=== PATIENT | female | born 1995 | race Caucasian/White ===

== ENCOUNTER 2017-12-15 13:05 | Emergency (ER) | payer OTHER ==
[2017-12-15 13:27] VITALS: TEMP 98.3
[2017-12-15] MEDS ORDERED: ONDANSETRON 4 MG/2 ML VIAL IVP STA (13:53)
[2017-12-15] MEDS ORDERED: SODIUM CHLORIDE 0.9% 1,000 ML IV STA ×2 (13:53)
[2017-12-15] MEDS ORDERED: KETOROLAC 30 MG/ML 1 ML VIAL IVP STA (13:53)
--- NOTE | 2017-12-15 14:20 | ED ---
Back Pain HPI <Lito Molina - Last Filed: 12/15/17 15:54> - General Source: patient, RN notes reviewed, old records reviewed Limitations: no limitations <Zaida Santamaria - Last Filed: 12/15/17 19:53> - General Chief Complaint: Back Pain/Injury Stated Complaint: back pain Time Seen by Provider: 12/15/17 13:35 - History of Present Illness Initial Comments: Patient is a 22-year-old female who presents the emergency department today with intermittent fevers complains of left-sided back pain between her shoulder blades. Worse with taking a deep breath. She was evaluated yesterday at [facility] had extensive workup. She was found to have hematuria reportedly but states she did not have any antibiotics. She states she's had this been having fevers for the past 2 days. At this time she denies any chance of . She states that her last menstrual period was the 16th of this month. Patient relates that she has had no nausea or vomiting. Denies any coughing. (Zaida Santamaria) - Related Data Previous Rx's Medication Instructions Recorded Acetaminophen-Codeine 300-30mg 1 each PO Q4H PRN #20 tablet 08/30/15 [Tylenol w/codeine #3] Naproxen [Naprosyn] 500 mg PO Q12HR #24 tab 08/30/15 Penicillin V Potassium [Pen Vee K] 500 mg PO QID #40 tab 08/30/15 Amoxic-Pot Clav 875-125Mg 1 tab PO Q12HR #20 tablet 12/15/17 [Augmentin 875-125] Clindamycin [Cleocin] 450 mg PO TID 7 Days capsule 12/15/17 Allergies Allergy/AdvReac Type Severity Reaction Status Date / Time No Known Allergies Allergy Verified 08/30/15 21:33 Review of Systems ROS Other: All systems not noted in ROS Statement are negative. <Lito Molina - Last Filed: 12/15/17 15:54> ROS Other: All systems not noted in ROS Statement are negative. <Zaida Santamaria - Last Filed: 12/15/17 19:53> ROS Statement: Those systems with pertinent positive or pertinent negative responses have been documented in the HPI. Past Medical History Past Medical History: No Reported History Additional Past Medical History / Comment(s): Obstetric history: This is her first and she has had care with Dr Garnica since 8 weeks. A+ , abs neg, Rub Imm, RPR NR, Hep B neg. Normal 1hr GTT, GBS neg. Normal anatomy US. History of Any Multi-Drug Resistant Organisms: None Reported Past Surgical History: Cholecystectomy Past Anesthesia/Blood Transfusion Reactions: No Reported Reaction Past Psychological History: No Psychological Hx Reported Smoking Status: Current every day smoker Past Alcohol Use History: None Reported Past Drug Use History: None Reported - Past Family History Father Family Medical History: No Reported History <Zaida Santamaria - Last Filed: 12/15/17 19:53> General Exam <Lito Molina - Last Filed: 12/15/17 15:54> Limitations: no limitations General appearance: alert, in no apparent distress Head exam: Present: atraumatic, normocephalic, normal inspection Eye exam: Present: normal appearance, PERRL, EOMI. Absent: scleral icterus, conjunctival injection, periorbital swelling ENT exam: Present: normal exam, mucous membranes moist Neck exam: Present: normal inspection. Absent: tenderness, meningismus, lymphadenopathy Respiratory exam: Present: normal lung sounds bilaterally. Absent: respiratory distress, wheezes, rales, rhonchi, stridor Cardiovascular Exam: Present: regular rate, normal rhythm, normal heart sounds. Absent: systolic murmur, diastolic murmur, rubs, gallop, clicks GI/Abdominal exam: Present: soft, tenderness (Left CVA tenderness.), normal bowel sounds. Absent: distended, guarding, rebound, rigid <Zaida Santamaria - Last Filed: 12/15/17 19:53> - General Exam Comments Initial Comments: This is a 22-year-old female. Alert and oriented. (Zaida Santamaria) Course <Lito Molina - Last Filed: 12/15/17 15:54> <Zaida Santamaria - Last Filed: 12/15/17 19:53> Vital Signs 12/15/17 12/15/17 12/15/17 13:22 14:45 14:46 Temperature 98.3 F Pulse Rate 110 H 92 Respiratory 18 16 Rate Blood Pressure 108/71 102/62 O2 Sat by Pulse 99 97 97 Oximetry 12/15/17 12/15/17 12/15/17 14:50 15:00 15:10 Temperature Pulse Rate Respiratory Rate Blood Pressure 102/62 102/62 102/62 O2 Sat by Pulse Oximetry 12/15/17 12/15/17 12/15/17 15:20 15:30 15:40 Temperature Pulse Rate 92 Respiratory 18 Rate Blood Pressure 102/62 102/62 102/62 O2 Sat by Pulse Oximetry 12/15/17 12/15/17 12/15/17 15:50 16:00 16:10 Temperature Pulse Rate Respiratory Rate Blood Pressure 102/62 102/62 97/77 O2 Sat by Pulse 99 Oximetry 12/15/17 17:28 Temperature Pulse Rate 98 Respiratory 18 Rate Blood Pressure 98/72 O2 Sat by Pulse 100 Oximetry - Reevaluation(s) Reevaluation #1: 12/15/17 15:53 Patient reevaluated and resting comfortably in bed. Patient complains of discomfort of the left mid thoracic region. CT report reviewed. Lung sounds are slightly diminished at the bases. Patient updated on report findings and concerns. Patient is advised admission for IV antibiotics and medicine and pulmonary consult. Patient refuses this. Patient does demonstrate medical decision making. Patient is updated specifically on CT findings and concerns for potentially life-threatening disease. (Lito Molina) Medical Decision Making - Lab Data Result diagrams: 12/15/17 14:05 12/15/17 14:05 <Lito Molina - Last Filed: 12/15/17 15:54> - Lab Data Result diagrams: 12/15/17 14:05 12/15/17 14:05 - Radiology Data Radiology results: report reviewed <Zaida Santamaria - Last Filed: 12/15/17 19:53> - Medical Decision Making This Patient is a 22-year-old female who presented to emergency Today with left- sided back pain. Patient reports she was seen at [facility]. I did obtain records from this visit yesterday. She had a white blood cell count of 15,000 at that time and sulci matured. They offered to CT and then she refused. Today Patient had significant CVA tenderness. Urinalysis is positive for red blood cells and white blood cells. Concern for infection. Urine culture obtained. And concerned with the hematuria the possibility of a kidney stone. He proceeded to do a CT abdomen and pelvis without contrast. Patient doesn't appear to be in any acute distress. Her vital signs stable. He is afebrile. She did complain of no cough or congestion. The CT did not show any evidence of pyelonephritis or obstructing renal stones. There was evidence of a left-sided pleural effusion and concern for bronchopneumonia. There is also. Questionable septic emboli. At that point we did complete a chest x-ray. Chest x-ray shows multiple rounded opacities concerning for possibility of septic emboli. Patient was informed of all of these results. I did give the Patient 1 dose of IV Rocephin. Blood cultures were obtained. Patient was informed multiple times that I would like to admit the Patient due to the abnormal CT finding and chest x-ray finding. Patient was adamant that she had to leave to take care of her daughter. We even offered to have the daughter stay in the emergency department with us and Patient continued to refuse. She stated she would likely return for reevaluation tomorrow. Patient has been started on clindamycin and Augmentin at this time for antibiotic coverage due to the concern for septic emboli. I do believe the source is likely from the urine at this time. She understands treatment plan and will comply. She understands she will be signing out AMA. (Zaida Santamaria) - Lab Data Lab Results 12/15/17 12/15/17 12/15/17 Range/Units 14:05 14:05 14:05 WBC 10.4 (3.8-10.6) k/uL RBC 4.25 (3.80-5.40) m/uL Hgb 12.6 (11.4-16.0) gm/dL Hct 38.1 (34.0-46.0) % MCV 89.8 (80.0-100.0) fL MCH 29.7 (25.0-35.0) pg MCHC 33.1 (31.0-37.0) g/dL RDW 12.6 (11.5-15.5) % Plt Count 172 (150-450) k/uL Neutrophils % 81 % Lymphocytes % 11 % Monocytes % 6 % Eosinophils % 1 % Basophils % 0 % Neutrophils # 8.4 H (1.3-7.7) k/uL Lymphocytes # 1.1 (1.0-4.8) k/uL Monocytes # 0.6 (0-1.0) k/uL Eosinophils # 0.1 (0-0.7) k/uL Basophils # 0.0 (0-0.2) k/uL PT (9.0-12.0) sec INR (<1.2) APTT (22.0-30.0) sec Sodium 137 (137-145) mmol/L Potassium 3.6 (3.5-5.1) mmol/L Chloride 102 (98-107) mmol/L Carbon Dioxide 28 (22-30) mmol/L Anion Gap 7 mmol/L BUN 11 (7-17) mg/dL Creatinine 0.46 L (0.52-1.04) mg/dL Est GFR (CKD-EPI)AfAm >90 (>60 ml/min/1.73 sqM) Est GFR (CKD-EPI)NonAf >90 (>60 ml/min/1.73 sqM) Glucose 131 H (74-99) mg/dL Plasma Lactic Acid Denilson 0.8 (0.7-2.0) mmol/L Calcium 9.0 (8.4-10.2) mg/dL Total Bilirubin 1.1 (0.2-1.3) mg/dL AST 64 H (14-36) U/L ALT 94 H (9-52) U/L Alkaline Phosphatase 119 (38-126) U/L Total Protein 6.4 (6.3-8.2) g/dL Albumin 3.7 (3.5-5.0) g/dL Amylase 31 (30-110) U/L Lipase 26 (23-300) U/L Urine Color Urine Appearance (Clear) Urine pH (5.0-8.0) Ur Specific [place] (1.001-1.035) Urine Protein (Negative) Urine Glucose (UA) (Negative) Urine Ketones (Negative) Urine Blood (Negative) Urine Nitrite (Negative) Urine Bilirubin (Negative) Urine Urobilinogen (<2.0) mg/dL Ur Leukocyte Esterase (Negative) Urine RBC (0-5) /hpf Urine WBC (0-5) /hpf Ur Squamous Epith Cells (0-4) /hpf Urine Bacteria (None) /hpf Urine Mucus (None) /hpf Urine HCG, Qual (Not Detectd) 12/15/17 12/15/17 12/15/17 Range/Units 14:05 14:05 14:05 WBC (3.8-10.6) k/uL RBC (3.80-5.40) m/uL Hgb (11.4-16.0) gm/dL Hct (34.0-46.0) % MCV (80.0-100.0) fL MCH (25.0-35.0) pg MCHC (31.0-37.0) g/dL RDW (11.5-15.5) % Plt Count (150-450) k/uL Neutrophils % % Lymphocytes % % Monocytes % % Eosinophils % % Basophils % % Neutrophils # (1.3-7.7) k/uL Lymphocytes # (1.0-4.8) k/uL Monocytes # (0-1.0) k/uL Eosinophils # (0-0.7) k/uL Basophils # (0-0.2) k/uL PT 11.1 (9.0-12.0) sec INR 1.2 H (<1.2) APTT 23.0 (22.0-30.0) sec Sodium (137-145) mmol/L Potassium (3.5-5.1) mmol/L Chloride (98-107) mmol/L Carbon Dioxide (22-30) mmol/L Anion Gap mmol/L BUN (7-17) mg/dL Creatinine (0.52-1.04) mg/dL Est GFR (CKD-EPI)AfAm (>60 ml/min/1.73 sqM) Est GFR (CKD-EPI)NonAf (>60 ml/min/1.73 sqM) Glucose (74-99) mg/dL Plasma Lactic Acid [place] (0.7-2.0) mmol/L Calcium (8.4-10.2) mg/dL Total Bilirubin (0.2-1.3) mg/dL AST (14-36) U/L ALT (9-52) U/L Alkaline Phosphatase (38-126) U/L Total Protein (6.3-8.2) g/dL Albumin (3.5-5.0) g/dL Amylase (30-110) U/L Lipase (23-300) U/L Urine Color Dark Brown Urine Appearance Cloudy H (Clear) Urine pH 6.0 (5.0-8.0) Ur Specific [place] 1.037 H (1.001-1.035) Urine Protein 1+ H (Negative) Urine Glucose (UA) Negative (Negative) Urine Ketones 3+ H (Negative) Urine Blood Moderate H (Negative) Urine Nitrite Negative (Negative) Urine Bilirubin 1+ H (Negative) Urine Urobilinogen >12.0 (<2.0) mg/dL Ur Leukocyte Esterase Moderate H (Negative) Urine RBC 7 H (0-5) /hpf Urine WBC 29 H (0-5) /hpf Ur Squamous Epith Cells 15 H (0-4) /hpf Urine Bacteria Rare H (None) /hpf Urine Mucus Many H (None) /hpf Urine HCG, Qual Not Detected (Not Detectd) - Radiology Data CT abdomen and pelvis shows normal appendix no renal stone or obstruction. Mild free fluid in the pelvic cul-de-sac. There is left pleural effusion. The lower lobe bilateral pulmonary consolidation more on the right side. Likely relates to bronchopneumonia. Metastatic disease or septic emboli are possible. This was read by Dr. Hoffmann. Chest x-ray shows multiple rounded pulmonary infiltrates. I would consider septic emboli or metastatic disease. This is not a pattern of typical bronchopneumonia. (Zaida Santamaria) Disposition <Lito Molina - Last Filed: 12/15/17 15:54> Is patient prescribed a controlled substance at d/c from ED?: No Time of Disposition: 16:57 <Zaida Santamaria - Last Filed: 12/15/17 19:53> Clinical Impression: Septic embolism, UTI (urinary tract infection), Sepsis Disposition: Left Against Medical Advice Condition: Good Instructions: Urinary Tract Infection in Women (DC) Additional Instructions: You do have very life-threatening condition at this time, we do want to admit to inpatiently and advised that he must drink plenty of fluids. Follow-up with primary care physicians. Patient must return to emergency department any further concerning signs or symptoms occur. Prescriptions: Amoxic-Pot Clav 875-125Mg [Augmentin 875-125] 1 tab PO Q12HR #20 tablet Clindamycin [Cleocin] 450 mg PO TID 7 Days capsule Referrals: Debbie Otto MD [Primary Care Provider] - 1-2 days
[2017-12-15 14:41] LABS: Basophils % (A) 0 %; Eosinophils # (A) 0.1 k/uL (0-0.7); Eosinophils % (A) 1 %; HCT 38.1 % (34.0-46.0); HGB 12.6 gm/dL (11.4-16.0); Lymphocytes # (A) 1.1 k/uL (1.0-4.8); Lymphocytes % (A) 11 %; MCH 29.7 pg (25.0-35.0); MCHC 33.1 g/dL (31.0-37.0); MCV 89.8 fL (80.0-100.0); Mean Platelet Volume 7.1; Monocytes # (A) 0.6 k/uL (0-1.0); Monocytes % (A) 6 %; Neutrophils # (A) 8.4 k/uL (1.3-7.7); Neutrophils % (A) 81 %; Platelet Count 172 k/uL (150-450); RBC 4.25 m/uL (3.80-5.40); RDW 12.6 % (11.5-15.5); WBC 10.4 k/uL (3.8-10.6)
[2017-12-15 14:47] LABS: Appearance,Urine Cloudy (Clear); Bacteria,Urine Rare /hpf; Bilirubin,Urine 1+ (Negative); Blood,Urine Moderate (Negative); Color,Urine Dark Brown; Glucose,Urine (UA) Negative (Negative); Ketones,Urine 3+ (Negative); Leukocyte Esterase,Urine Moderate (Negative); Mucus,Urine Many /hpf; Nitrite,Urine Negative (Negative); Protein,Urine 1+ (Negative); RBC,Urine 7 /hpf (0-5); Specific Gravity,Urine 1.037 (1.001-1.035); Squamous Epithelial Cell,Urine 15 /hpf (0-4); Urobilinogen,Urine >12.0 mg/dL (<2.0); WBC,Urine 29 /hpf (0-5)
[2017-12-15 14:52] LABS: ALT 94 U/L (9-52); AST 64 U/L (14-36); Albumin 3.7 g/dL (3.5-5.0); Alkaline Phosphatase 119 U/L (38-126); Amylase 31 U/L (30-110); Anion Gap 7 mmol/L; Blood Urea Nitrogen 11 mg/dL (7-17); Carbon Dioxide 28 mmol/L (22-30); Chloride 102 mmol/L (98-107); Glucose 131 mg/dL (74-99); Lipase 26 U/L (23-300); Potassium 3.6 mmol/L (3.5-5.1); Sodium 137 mmol/L (137-145); Total Bilirubin 1.1 mg/dL (0.2-1.3); Total Protein 6.4 g/dL (6.3-8.2)
[2017-12-15 14:55] LABS: INR 1.2 (<1.2)
[2017-12-15 14:56] LABS: Prothrombin Time 11.1 sec (9.0-12.0)
--- NOTE | 2017-12-15 15:34 | CT ---
EXAMINATION TYPE: CT abdomen pelvis wo con DATE OF EXAM: 12/15/2017 COMPARISON: None HISTORY: left flank pain CT DLP: 362.8 mGycm Automated exposure control for dose reduction was used. TECHNIQUE: Helical acquisition of images was performed from the lung bases through the pelvis. FINDINGS: There is 4.5 cm rounded area of consolidation in the right lower lobe with air bronchogram. There is similar 3 cm foci of consolidation in the right lower lobe. There is rounded 1.5 cm infiltrate left l ower lobe. There is small left pleural effusion. Heart size is normal. Liver appears normal. There are clips from cholecystectomy. Spleen appears normal. There is no pancre atic mass. There is no adrenal mass. Kidneys have normal size and contour. There is no hydronephrosis . Ureters are not dilated. There is no retroperitoneal adenopathy. Appendix appears normal. Bladder d istends smoothly. Uterus is anteverted. There is small amount of free fluid in the pelvis. There is no inguinal hernia. There is no intestinal wall thickening. There are no dilated loops. Bony pelvis appears intact. Lumbar spine is intact. IMPRESSION: NORMAL APPENDIX. NO RENAL STONE OR OBSTRUCTION. MILD FREE FLUID IN THE CUL-DE-SAC. LEFT PLEURAL EFFUSION. LOWER LOBE BILATERAL PULMONARY CONSOLIDATIO N AND MORE ON THE RIGHT SIDE. THIS LIKELY RELATES TO BRONCHOPNEUMONIA. METASTATIC DISEASE OR SEPTIC E MBOLI ARE POSSIBLE.
--- NOTE | 2017-12-15 16:10 | XR ---
EXAMINATION TYPE: XR chest 2V DATE OF EXAM: 12/15/2017 COMPARISON: January 20, 2015 HISTORY: Chest pain TECHNIQUE: Frontal and lateral views of the chest are obtained. FINDINGS: Heart and mediastinum are normal. There are multiple somewhat rounded areas of consolidati on in both lungs. The largest is in the right lower lobe and measures 6 cm. Rounded infiltrates in th e left upper lobe measure up to 2.5 cm. There is no pleural effusion. Pulmonary vascularity is normal . Bony thorax is intact. IMPRESSION: Multiple rounded pulmonary infiltrates. I would consider septic emboli or metastatic dis ease. This is not a pattern of typical bronchopneumonia.
[2017-12-15 16:20] VITALS: RESP 18
[2017-12-15 17:30] VITALS: BP 98/72; PULSE 98
[2017-12-15 20:12] LABS: Amphetamine Screen,Urine Not Detected (NotDetected); Barbiturate Screen,Urine Not Detected (NotDetected); Benzodiazepines Screen,Urine Not Detected (NotDetected); Cocaine Screen,Urine Not Detected (NotDetected); Methadone Screen, Urine Not Detected (NotDetected); Opiate Screen,Urine Not Detected (NotDetected); Oxycodone Screen, Urine Not Detected (NotDetected); Phencyclidine Screen,Urine Not Detected (NotDetected); Tricyclic Antidepressant,Urine Not Detected (NotDetected); Urn Cannabinoid Scrn Detected (NotDetected)
== END 2017-12-15 17:30 | disposition left against medical advice (07) ==
LOC: EC 13:05
DX: I76 Septic arterial embolism (principal); I74.9 Embolism and thrombosis of unspecified artery; N39.0 Urinary tract infection, site not specified; J90 Pleural effusion, not elsewhere classified; F17.200 Nicotine dependence, unspecified, uncomplicated; Z53.29 Procedure and treatment not carried out because of patient's decision for other reasons
CPT/HCPCS: 36415; 80053; 82150; 83605; 83690; 85025; 85610; 85730; 81001; 81025; 87040; 80306; 87086; 87077; 87186; 71046; 74176; 99284; 96365; 96375 ×2; 96361; J2405; J0696; J1885

== ENCOUNTER 2017-12-16 13:31 | Inpatient (IN) | payer OTHER ==
[2017-12-16] MEDS ORDERED: ACETAMINOPHEN TAB 500 MG TAB PO STA (13:37)
[2017-12-16] MEDS ORDERED: IBUPROFEN 600 MG TAB PO STA (13:37)
[2017-12-16] MEDS ORDERED: VANCOMYCIN IV PER PHARMACY 1 EACH MISC MISCELLANE PRN (13:46)
[2017-12-16] MEDS ORDERED: cefTRIAXone 2,000 MG in SODIUM CHLORIDE 0.9% 100 ML IVPB STA (13:57)
[2017-12-16] MEDS: SODIUM CHLORIDE 0.9% 1,000 ML IV SCH ×2 (13:58→23:01)
[2017-12-16] MEDS: SODIUM CHLORIDE 0.9% 500 ML 500 ML IV SCH ×3 (13:58→15:10)
[2017-12-16 14:01] LABS: Basophils % (A) 0 %; Eosinophils # (A) 0.1 k/uL (0-0.7); Eosinophils % (A) 1 %; HCT 37.9 % (34.0-46.0); HGB 12.6 gm/dL (11.4-16.0); Lymphocytes # (A) 0.8 k/uL (1.0-4.8); Lymphocytes % (A) 8 %; MCH 29.6 pg (25.0-35.0); MCHC 33.1 g/dL (31.0-37.0); MCV 89.6 fL (80.0-100.0); Mean Platelet Volume 7.6; Monocytes # (A) 0.5 k/uL (0-1.0); Monocytes % (A) 5 %; Neutrophils # (A) 8.1 k/uL (1.3-7.7); Neutrophils % (A) 84 %; Platelet Count 160 k/uL (150-450); RBC 4.24 m/uL (3.80-5.40); RDW 12.5 % (11.5-15.5); WBC 9.7 k/uL (3.8-10.6)
[2017-12-16] MEDS ORDERED: VANCOMYCIN 1,500 MG in SODIUM CHLORIDE 0.9% 250 ML IVPB STA (14:01)
[2017-12-16 14:10] LABS: ALT 79 U/L (9-52); AST 47 U/L (14-36); Albumin 3.4 g/dL (3.5-5.0); Alkaline Phosphatase 137 U/L (38-126); Anion Gap 8 mmol/L; Blood Urea Nitrogen 9 mg/dL (7-17); Calcium 8.7 mg/dL (8.4-10.2); Carbon Dioxide 26 mmol/L (22-30); Chloride 102 mmol/L (98-107); Glucose 120 mg/dL (74-99); Potassium 3.5 mmol/L (3.5-5.1); Sodium 136 mmol/L (137-145); Total Protein 6.2 g/dL (6.3-8.2)
--- NOTE | 2017-12-16 14:44 | ED ---
Fever HPI - General Source: patient, RN notes reviewed, old records reviewed Mode of arrival: ambulatory Limitations: no limitations <Makenzie Santamariaily - Last Filed: 12/16/17 16:01> <Tony Kee - Last Filed: 12/16/17 18:56> - General Chief Complaint: Fever Stated Complaint: back pain Time Seen by Provider: 12/16/17 13:37 - History of Present Illness Initial Comments: Patient is a 22-year-old female who presents emergency permit today with chief complaint of back pain. She's been having fevers off-and-on for the past week. She was seen yesterday in the emergency department by myself. I was concerned at that time with a diagnosis of septic emboli. Patient reports that she's had continued fevers since leaving yesterday. Patient returned for admission. She reports no significant shortness of breath. She complains of left-sided back pain. (Zaida Santamaria) - Related Data Previous Rx's Medication Instructions Recorded Amoxic-Pot Clav 875-125Mg 1 tab PO Q12HR #20 tablet 12/15/17 [Augmentin 875-125] Clindamycin [Cleocin] 450 mg PO TID 7 Days capsule 12/15/17 Allergies Allergy/AdvReac Type Severity Reaction Status Date / Time No Known Allergies Allergy Verified 12/16/17 17:00 Review of Systems ROS Other: All systems not noted in ROS Statement are negative. <Makenzie Santamariaily - Last Filed: 12/16/17 16:01> ROS Other: All systems not noted in ROS Statement are negative. <Tony Kee - Last Filed: 12/16/17 18:56> ROS Statement: Those systems with pertinent positive or pertinent negative responses have been documented in the HPI. Past Medical History Past Medical History: No Reported History Additional Past Medical History / Comment(s): Obstetric history: This is her first and she has had care with Dr Garnica since 8 weeks. A+ , abs neg, Rub Imm, RPR NR, Hep B neg. Normal 1hr GTT, GBS neg. Normal anatomy US. History of Any Multi-Drug Resistant Organisms: None Reported Past Surgical History: Cholecystectomy Past Anesthesia/Blood Transfusion Reactions: No Reported Reaction Past Psychological History: No Psychological Hx Reported Smoking Status: Current every day smoker Past Alcohol Use History: None Reported Past Drug Use History: None Reported - Past Family History Father Family Medical History: No Reported History <Zaida Santamaria - Last Filed: 12/16/17 16:01> General Exam Limitations: no limitations General appearance: alert, in no apparent distress Head exam: Present: atraumatic, normocephalic, normal inspection Eye exam: Present: normal appearance ENT exam: Present: normal exam, mucous membranes moist Neck exam: Present: normal inspection. Absent: tenderness, meningismus, lymphadenopathy Respiratory exam: Present: normal lung sounds bilaterally. Absent: respiratory distress, wheezes, rales, rhonchi, stridor Cardiovascular Exam: Present: regular rate, normal rhythm, normal heart sounds. Absent: systolic murmur, diastolic murmur, rubs, gallop, clicks GI/Abdominal exam: Present: soft, tenderness (Left CVA tenderness), normal bowel sounds. Absent: distended, guarding, rebound, rigid Extremities exam: Present: normal inspection, full ROM, normal capillary refill. Absent: tenderness, pedal edema, joint swelling, calf tenderness Back exam: Present: normal inspection, CVA tenderness (L) Neurological exam: Present: alert, oriented X3, CN II-XII intact Psychiatric exam: Present: normal affect, normal mood <Zaida Santamaria - Last Filed: 12/16/17 16:01> <Tony Kee - Last Filed: 12/16/17 18:56> - General Exam Comments Initial Comments: 22-year-old female. Alert and oriented 3. Patient appears in no acute distress. (Zaida Santamaria) Vital Signs 12/16/17 12/16/17 12/16/17 13:33 14:04 15:02 Temperature 99.8 F H 100.8 F H Pulse Rate 112 H 116 H Respiratory 20 20 18 Rate Blood Pressure 105/66 110/70 O2 Sat by Pulse 98 99 Oximetry 12/16/17 12/16/17 12/16/17 15:07 16:00 17:00 Temperature 98.7 F 97.7 F Pulse Rate 107 H 107 H 89 Respiratory 18 20 18 Rate Blood Pressure 106/77 95/75 103/73 O2 Sat by Pulse 98 99 99 Oximetry 12/16/17 17:51 Temperature 98.1 F Pulse Rate 99 Respiratory 16 Rate Blood Pressure 103/73 O2 Sat by Pulse 99 Oximetry Medical Decision Making - Lab Data Result diagrams: 12/16/17 13:51 12/16/17 13:51 - Radiology Data Radiology results: report reviewed <Zaida Santamaria - Last Filed: 12/16/17 16:01> - Lab Data Result diagrams: 12/16/17 13:51 12/16/17 13:51 <Tony Kee - Last Filed: 12/16/17 18:56> - Medical Decision Making 22-year-old female presents emergency department today for reevaluation after leaving AMA yesterday. At that time she's not had septic emboli. Patient denies any history of drug use. Hearing murmurs at this time. A urinalysis does show significant infection. Urine culture and blood culture pending from yesterday. She does arrive to emergency department tachycardic and with the fever. Given 2 L bolus, Motrin Tylenol. Started on Rocephin and vancomycin. We did complete a CT of patient's chest today which does show multiple consolidations concerning for septic emboli. Patient agrees to admission at this time. We will consult cardiology for possible AMALIA, complete an echo. Consults to pulmonology as well as infectious disease. Patient's case discussed with Dr. Schumacher whom discussed with [facility] hospitalist. ( Zaida Santamaria) 22-year-old female presents for evaluation of fever. Patient left his medical advice yesterday after discovery of pulmonary septic emboli. This was picked up on CAT scan of the abdomen. CT angiography was obtained today which shows multiple pulmonary infection concerning for septic emboli. Patient has no history of IV drug abuse. She does donate plasma. Given the CT findings she started on broad-spectrum antibiotics awaiting blood culture. Echo will be obtained, cardiology on consult for evaluation, infectious disease and pulmonology placed on consult as well. (Tony Kee) - Lab Data Lab Results 12/16/17 12/16/17 12/16/17 Range/Units 13:51 13:51 13:51 WBC 9.7 (3.8-10.6) k/uL RBC 4.24 (3.80-5.40) m/uL Hgb 12.6 (11.4-16.0) gm/dL Hct 37.9 (34.0-46.0) % MCV 89.6 (80.0-100.0) fL MCH 29.6 (25.0-35.0) pg MCHC 33.1 (31.0-37.0) g/dL RDW 12.5 (11.5-15.5) % Plt Count 160 (150-450) k/uL Neutrophils % 84 % Lymphocytes % 8 % Monocytes % 5 % Eosinophils % 1 % Basophils % 0 % Neutrophils # 8.1 H (1.3-7.7) k/uL Lymphocytes # 0.8 L (1.0-4.8) k/uL Monocytes # 0.5 (0-1.0) k/uL Eosinophils # 0.1 (0-0.7) k/uL Basophils # 0.0 (0-0.2) k/uL PT (9.0-12.0) sec INR (<1.2) APTT (22.0-30.0) sec D-Dimer (<0.60) mg/L FEU Sodium 136 L (137-145) mmol/L Potassium 3.5 (3.5-5.1) mmol/L Chloride 102 (98-107) mmol/L Carbon Dioxide 26 (22-30) mmol/L Anion Gap 8 mmol/L BUN 9 (7-17) mg/dL Creatinine 0.45 L (0.52-1.04) mg/dL Est GFR (CKD-EPI)AfAm >90 (>60 ml/min/1.73 sqM) Est GFR (CKD-EPI)NonAf >90 (>60 ml/min/1.73 sqM) Glucose 120 H (74-99) mg/dL Plasma Lactic Acid [place] 1.1 (0.7-2.0) mmol/L Calcium 8.7 (8.4-10.2) mg/dL Total Bilirubin 1.0 (0.2-1.3) mg/dL AST 47 H (14-36) U/L ALT 79 H (9-52) U/L Alkaline Phosphatase 137 H (38-126) U/L Total Protein 6.2 L (6.3-8.2) g/dL Albumin 3.4 L (3.5-5.0) g/dL Urine Color Urine Appearance (Clear) Urine pH (5.0-8.0) Ur Specific [place] (1.001-1.035) Urine Protein (Negative) Urine Glucose (UA) (Negative) Urine Ketones (Negative) Urine Blood (Negative) Urine Nitrite (Negative) Urine Bilirubin (Negative) Urine Urobilinogen (<2.0) mg/dL Ur Leukocyte Esterase (Negative) Urine RBC (0-5) /hpf Urine WBC (0-5) /hpf Ur Squamous Epith Cells (0-4) /hpf Urine Bacteria (None) /hpf Urine Mucus (None) /hpf 12/16/17 12/16/17 Range/Units 13:51 14:45 WBC (3.8-10.6) k/uL RBC (3.80-5.40) m/uL Hgb (11.4-16.0) gm/dL Hct (34.0-46.0) % MCV (80.0-100.0) fL MCH (25.0-35.0) pg MCHC (31.0-37.0) g/dL RDW (11.5-15.5) % Plt Count (150-450) k/uL Neutrophils % % Lymphocytes % % Monocytes % % Eosinophils % % Basophils % % Neutrophils # (1.3-7.7) k/uL Lymphocytes # (1.0-4.8) k/uL Monocytes # (0-1.0) k/uL Eosinophils # (0-0.7) k/uL Basophils # (0-0.2) k/uL PT 11.1 (9.0-12.0) sec INR 1.1 (<1.2) APTT 24.5 (22.0-30.0) sec D-Dimer 1.01 H (<0.60) mg/L FEU Sodium (137-145) mmol/L Potassium (3.5-5.1) mmol/L Chloride (98-107) mmol/L Carbon Dioxide (22-30) mmol/L Anion Gap mmol/L BUN (7-17) mg/dL Creatinine (0.52-1.04) mg/dL Est GFR (CKD-EPI)AfAm (>60 ml/min/1.73 sqM) Est GFR (CKD-EPI)NonAf (>60 ml/min/1.73 sqM) Glucose (74-99) mg/dL Plasma Lactic Acid [place] (0.7-2.0) mmol/L Calcium (8.4-10.2) mg/dL Total Bilirubin (0.2-1.3) mg/dL AST (14-36) U/L ALT (9-52) U/L Alkaline Phosphatase (38-126) U/L Total Protein (6.3-8.2) g/dL Albumin (3.5-5.0) g/dL Urine Color Dark Yellow Urine Appearance Cloudy H (Clear) Urine pH 6.5 (5.0-8.0) Ur Specific [place] 1.050 H (1.001-1.035) Urine Protein 1+ H (Negative) Urine Glucose (UA) Negative (Negative) Urine Ketones 2+ H (Negative) Urine Blood Moderate H (Negative) Urine Nitrite Negative (Negative) Urine Bilirubin 1+ H (Negative) Urine Urobilinogen >12.0 (<2.0) mg/dL Ur Leukocyte Esterase Moderate H (Negative) Urine RBC 60 H (0-5) /hpf Urine WBC 31 H (0-5) /hpf Ur Squamous Epith Cells 19 H (0-4) /hpf Urine Bacteria Rare H (None) /hpf Urine Mucus Many H (None) /hpf 12/16/17 14:42 EKG performed at 1354 shows sinus tachycardia and nonspecific ST and T wave abnormal. He had normal EKG noted. Ventricular rate of 113 bpm. Pulse 120 ms. QRS duration 84 seconds. QT QTc is 326/447 ms. (Zaida Santamaria) - Radiology Data Numerous bilateral areas of pneumonic airspace consolidation in both lungs. Appear increased compared to yesterday and consistent with inflammatory disease. This could be multiple septic emboli. No evidence of pain. (Zaida Santamaria) Disposition Is patient prescribed a controlled substance at d/c from ED?: No Time of Disposition: 16:03 <Zaida Santamaria - Last Filed: 12/16/17 16:01> <Tony Kee - Last Filed: 12/16/17 18:56> Clinical Impression: Septic embolism, UTI (urinary tract infection), Sepsis Disposition: ADMITTED IP TO THIS HOSP Condition: Stable
[2017-12-16 14:52] LABS: INR 1.1 (<1.2); Partial Thromboplastin Time 24.5 sec (22.0-30.0); Prothrombin Time 11.1 sec (9.0-12.0)
[2017-12-16 14:54] LABS: D-Dimer 1.01 mg/L FEU (<0.60)
--- NOTE | 2017-12-16 14:54 | CT ---
EXAMINATION TYPE: CT chest angio for PE DATE OF EXAM: 12/16/2017 COMPARISON: None HISTORY: Back pain CT DLP: 206.7 mGycm Automated exposure control for dose reduction was used. CONTRAST: CT Chest for pulmonary embolism performed with without and with IV Contrast, patient injected with 10 0 ml mL of Isovue 370. FINDINGS: There are 3-D post processed images. There are multiple bilateral areas of airspace pneumonic consolidation. The largest is in the lateral right lower lobe and measures 6 cm. Upper and lower lobes are involved. Most of the infiltrates are less than 3.5 cm. There is no mediastinal adenopathy. There is 2 x 1 cm enlarged right bronchial lymph node. There is n ormal contrast opacification of the pulmonary arteries. There are no filling defects. There is no yao dence of aortic aneurysm or dissection. There are small pleural effusions. Bony thorax appears intact . IMPRESSION: Numerous bilateral areas of pneumonic airspace consolidation in both lungs. These appear increased co mpared to yesterday and is consistent with inflammatory disease. This could be multiple septic emboli . No evidence of pulmonary embolism.
[2017-12-16 15:06] LABS: Appearance,Urine Cloudy (Clear); Bacteria,Urine Rare /hpf; Bilirubin,Urine 1+ (Negative); Blood,Urine Moderate (Negative); Color,Urine Dark Yellow; Glucose,Urine (UA) Negative (Negative); Ketones,Urine 2+ (Negative); Leukocyte Esterase,Urine Moderate (Negative); Mucus,Urine Many /hpf; Nitrite,Urine Negative (Negative); PH, Urine 6.5 (5.0-8.0); Protein,Urine 1+ (Negative); RBC,Urine 60 /hpf (0-5); Squamous Epithelial Cell,Urine 19 /hpf (0-4); Urobilinogen,Urine >12.0 mg/dL (<2.0); WBC,Urine 31 /hpf (0-5)
[2017-12-16] MEDS ORDERED: NALOXONE 0.4 MG/ML 1 ML VIAL IV PRN (16:05)
[2017-12-16] MEDS ORDERED: MORPHINE SULFATE 4 MG/ML SYRINGE IV PRN (16:05)
--- NOTE | 2017-12-16 18:18 | CONS ---
CONSULTATION DATE OF SERVICE: 12/16/2017. REASON FOR CONSULTATION: Possible septic emboli. HISTORY OF PRESENT ILLNESS: The patient is a 22-year-old female otherwise healthy, who started feeling sick on that is 3 days prior to presentation to the hospital. The patient did start having pain in the left upper molar tooth area. The patient said she put on some numbing medication, numbing gel on that tooth and went to sleep and she woke up with significant pain to the left lower chest area posteriorly. Pain described to be throbbing almost 10/10 in severity. The patient did have some shortness of breath with very minimal cough and not bringing up any sputum. Subsequently, the patient started having a fever 102 degrees Fahrenheit. The patient states she took some shower and took some Tylenol to get the fever down. The next morning on Sunday, her symptoms continued to get worse and she went to the [facility] ER where the patient apparently did have some blood cultures done and blood work and was discharged home thinking it was a viral syndrome. The patient subsequently came to the [facility] ER on December 15, 2017 where the patient was evaluated by the ER physician. The patient did have a CT of the abdomen and pelvis completed where it did show mild free fluid in the left pleural effusion, lower lobe bilateral pulmonary consolidation more on the right side slightly bronchopneumonia, metastatic disease or the septic emboli possible. The patient was advised admission to the hospital. However, the patient refused as she says she wanted to take care of her daughter. Subsequently the patient left AMA. Unfortunately, no blood culture was done yesterday and she presented today to be admitted to the hospital. This time the patient did have a CT angiogram completed which was read as numerous bilateral areas of pneumonic air space consolidation in both lung, these appear increased compared to yesterday and is consistent with inflammatory disease, could be multiple septic emboli. No evidence of pulmonary embolism. The patient did receive a dose of Rocephin and vancomycin and Infectious Disease was consulted for further recommendations regarding antibiotic therapy. The patient categorically denies having ever used any IV drugs. REVIEW OF SYSTEMS: CONSTITUTIONAL: Positive for weakness along with the fever. Eyes: No complaint. ENT no complaint. Respiratory as per HPI. Cardiovascular: No complaint. Genitourinary: No complaint. Gastrointestinal: No complaint. Musculoskeletal: No complaint. Integumentary: No complaint. Psychological no complaint. Endocrine no complaint. Neurologic no complaint. PAST MEDICAL HISTORY: No major illnesses. PAST SURGICAL HISTORY: Cholecystectomy. SOCIAL HISTORY: Current everyday smoker. Smokes about a pack a day. Denies any drinking or any drug use. Categorically denies any IV drug use. FAMILY HISTORY: No pertinent findings noticed. ALLERGIES: No known drug allergies. MEDICATION: Currently include the patient is on Tylenol, Motrin, Toradol, morphine sulfate, Narcan, Zofran, Protonix, vancomycin 1250 q.8. She did receive a dose of Rocephin 2 g. EXAMINATION: Blood pressure is 95/75 with a pulse of 107, temperature of 97.7. T-max is 100.8. General description is a young female lying in bed in no distress. No tachypnea or accessory muscles of respiration use. HEENT: Shows no pallor. No scleral icterus. Oral mucosal membranes are dry. No pharyngeal erythema or thrush. NECK: Trachea central. No thyromegaly. LUNGS: Unlabored breathing. Some decreased breath sounds at the bases. No wheeze or crackles. Heart S1, S2. Regular rate and rhythm. ABDOMEN: Soft, no tenderness. No guarding. No organomegaly. EXTREMITIES: No edema of the feet. Skin examination: No rash or mass palpable. NEUROLOGICAL: Patient is awake, alert, and oriented times three. Mood and affect normal. Examination of the oral cavity shows dentition on the left upper and lower molar but no significant inflammatory changes were noticed. LABS: Hemoglobin is 12.6, white count 9.7, BUN of 9, creatinine 0.45. Liver enzymes slightly elevated. Urine has been cloudy with moderate leukocyte esterase, with 31 WBC, many bacteria. DIAGNOSTIC IMPRESSION AND PLAN: Patient admitted to the hospital with fever and left lower chest pain and also has some problem with dentition, now with CTs suspicious for septic emboli in a patient who categorically denies having any IV drug use, however, does complain of left upper molar toothache with overall poor dentition with a question of possible endocarditis with secondary septic emboli from an oral misael which could be usually a Streptococcus pathogen. Clinical suspicious for primary pneumonia is low in view of no significant respiratory symptoms of any cough or sputum production. PLAN: 1. We will continue patient on vancomycin, pharmacy to dose, target of 15. However, start Rocephin 2 g daily. 2. Await cardiac evaluation and 2D echocardiogram which is negative. Would benefit from a AMALIA. 3. Depending upon the clinical response as well as cultures we will further adjust medication if needed. Thank you for this consultation. Will follow this patient along with you. PLACIDO / ROSIEN: [id number] /
[2017-12-16 18:29] VITALS: BMI 24.0
--- NOTE | 2017-12-16 20:07 | P.HPIM ---
History of Present Illness H&P Date: 12/16/17 Chief Complaint: Fever and difficulty breathing Patient is a 22-year-old female without significant past medical history who has been feeling well until last came to the hospital with complaints of left sided back pain mainly below the left scapula. Patient was in her usual state of health until last . On night she developed left -sided back pain. Patient also had right molar tooth pain and he used oral Listerine mouthwash. One-hour lateral patient developed severe left flank pain. Patient has been having fevers on and off at home. Patient initially presented to [facility] on Sunday and was sent home with possible acute viral syndrome. Next today Patient came to [facility] Hospital on Sunday. Patient had CT abdomen and pelvis and chest x-ray at the time. Chest x-ray showed multiple septic emboli/metastatic lesions and urinary tract infection. Patient left AMA and came back today with complaints of difficulty breathing fever and left upper back pain. Denied any cough or sputum production. No nausea vomiting or diarrhea. CT of the abdomen pelvis showed mild fluid in the cul-de-sac. left pleural effusion. Bilateral pulmonary consolidation more on the left side. This is likely bronchopneumonia. Septic emboli and mental status is a consideration. CT of the abdomen pelvis showed multiple areas of pneumonic airspace consolidation both lungs. These appear to be increased compared to yesterday and is consistent with an estimated disease. This could be multiple septic emboli. WBC 9.7 D-dimer 1.01 UA is cloudy with leukocyte esterase moderate and WBC greater than 31 Patient denied any history of IV drug abuse. Review of Systems Constitutional: Fever and chills at home . No generalized weakness or weight loss. Abdomen: Patient denied nausea vomiting and diarrhea and abdominal pain. Cardiovascular: Patient denies any chest pain or short of breath no palpitations. Left lower back pain Respiratory: patient denied any cough is from production. Positive shortness of breath Neurologic: Patient denied any numbness or tingling headache. Musculoskeletal: Patient denies any complaints of joint swelling or deformity. Skin: Negative Psychiatric: Negative Endocrine: No heat or cold intolerance. No recent weight gain. Genitourinary: No dysuria or hematuria. All other 14 point ROS negative except the above Past Medical History Past Medical History: No Reported History Additional Past Medical History / Comment(s): Obstetric history: This is her first and she has had care with Dr Garnica since 8 weeks. A+ , abs neg, Rub Imm, RPR NR, Hep B neg. Normal 1hr GTT, GBS neg. Normal anatomy US. History of Any Multi-Drug Resistant Organisms: None Reported Past Surgical History: Cholecystectomy Past Anesthesia/Blood Transfusion Reactions: No Reported Reaction Past Psychological History: No Psychological Hx Reported Smoking Status: Current every day smoker Past Alcohol Use History: None Reported Past Drug Use History: None Reported - Past Family History Father Family Medical History: No Reported History Medications and Allergies Home Medications Medication Instructions Recorded Confirmed Type Amoxic-Pot Clav 875-125Mg 1 tab PO Q12HR #20 tablet 12/15/17 12/16/17 Rx [Augmentin 875-125] Clindamycin [Cleocin] 450 mg PO TID 7 Days capsule 12/15/17 12/16/17 Rx Allergies Allergy/AdvReac Type Severity Reaction Status Date / Time No Known Allergies Allergy Verified 12/16/17 17:00 Physical Exam Vitals: Vital Signs Temp Pulse Pulse Resp BP BP Pulse Ox 12/16/17 18:30 97.6 F 97 18 111/68 99 12/16/17 17:51 98.1 F 99 16 103/73 99 12/16/17 17:00 89 18 103/73 99 12/16/17 16:00 97.7 F 107 H 20 95/75 99 12/16/17 15:07 98.7 F 107 H 18 106/77 98 12/16/17 15:02 18 12/16/17 14:04 100.8 F H 116 H 20 110/70 99 12/16/17 13:33 99.8 F H 112 H 20 105/66 98 Intake and Output 12/16/17 12/16/17 12/16/17 06:59 14:59 22:59 Intake Total 100 Balance 100 Intake: Intake, IV Titration 100 Amount Sodium Chloride 0.9% 1, 100 000 ml @ 100 mls/hr IV . Q10H [facility] Rx#:[id number] Other: Weight 63.503 kg 67.6 kg PHYSICAL EXAMINATION: Patient is lying in the bed comfortably, no acute distress, awake alert and oriented.. HEENT: Normocephalic. Neck is supple. Pupils reactive. Nostrils clear. Oral cavity is moist. Ears reveal no drainage. Neck reveals no JVD, carotid bruits, or thyromegaly. CHEST EXAMINATION: Trachea is central. Symmetrical expansion. Minimal rhonchi at the left base. Lung bates clear to auscultation and percussion. CARDIAC: Normal S1, S2 with no gallops. No murmurs ABDOMEN: Soft. Bowel sounds normal. No organomegaly. No abdominal bruits. Extremities: reveal no edema. No clubbing or cyanosis Neurologically awake, alert, oriented x3 with well-coordinated movements. No focal deficits noted Skin: No rash or skin lesions. Psychiatric: Coperative. Nonsuicidal Musculoskeletal: No joint swelling or deformity. Normal range of motion. Results CBC & Chem 7: 12/16/17 13:51 12/16/17 13:51 Labs: Abnormal Lab Results - Last 24 Hours (Table) 12/16/17 12/16/17 12/16/17 Range/Units 13:51 13:51 13:51 Neutrophils # 8.1 H (1.3-7.7) k/uL Lymphocytes # 0.8 L (1.0-4.8) k/uL D-Dimer 1.01 H (<0.60) mg/L FEU Sodium 136 L (137-145) mmol/L Creatinine 0.45 L (0.52-1.04) mg/dL Glucose 120 H (74-99) mg/dL AST 47 H (14-36) U/L ALT 79 H (9-52) U/L Alkaline Phosphatase 137 H (38-126) U/L Total Protein 6.2 L (6.3-8.2) g/dL Albumin 3.4 L (3.5-5.0) g/dL Urine Appearance (Clear) Ur Specific [place] (1.001-1.035) Urine Protein (Negative) Urine Ketones (Negative) Urine Blood (Negative) Urine Bilirubin (Negative) Ur Leukocyte Esterase (Negative) Urine RBC (0-5) /hpf Urine WBC (0-5) /hpf Ur Squamous Epith Cells (0-4) /hpf Urine Bacteria (None) /hpf Urine Mucus (None) /hpf 12/16/17 Range/Units 14:45 Neutrophils # (1.3-7.7) k/uL Lymphocytes # (1.0-4.8) k/uL D-Dimer (<0.60) mg/L FEU Sodium (137-145) mmol/L Creatinine (0.52-1.04) mg/dL Glucose (74-99) mg/dL AST (14-36) U/L ALT (9-52) U/L Alkaline Phosphatase (38-126) U/L Total Protein (6.3-8.2) g/dL Albumin (3.5-5.0) g/dL Urine Appearance Cloudy H (Clear) Ur Specific [place] 1.050 H (1.001-1.035) Urine Protein 1+ H (Negative) Urine Ketones 2+ H (Negative) Urine Blood Moderate H (Negative) Urine Bilirubin 1+ H (Negative) Ur Leukocyte Esterase Moderate H (Negative) Urine RBC 60 H (0-5) /hpf Urine WBC 31 H (0-5) /hpf Ur Squamous Epith Cells 19 H (0-4) /hpf Urine Bacteria Rare H (None) /hpf Urine Mucus Many H (None) /hpf Thrombosis Risk Factor Assmnt - DVT/VTE Prophylaxis DVT/VTE Prophylaxis: Pharmacologic Prophylaxis ordered - Choose All That Apply Any of the Below Risk Factors Present?: No Assessment and Plan Assessment: Multiple septic emboli in the lung. Suspected infective endocarditis with poor dentition and possible tooth infection Unlikely pneumonia without respiratory symptoms Acute urinary tract infection with Gram-negative bacilli Elevated liver enzymes Poor dentition No history of IVDU Plan: Patient will be continued on antibiotics in the form of ceftriaxone 2 g every 24 hours along with vancomycin. Continue with IV fluids. Follow-up blood cultures and urine cultures were sent. Urine culture done on 12/15/2017 showing gram-negative bacilli. ID, pulmonary and cardiology were consulted. 2-D echocardiogram was ordered. If negative AMALIA will be considered. Follow-up culture reports and further recommendations based on the clinical course. Prognosis is guarded.. Time with Patient: Greater than 30
[2017-12-16] MEDS: ACETAMINOPHEN TAB 325 MG TAB PO PRN (20:43)
[2017-12-16] MEDS: KETOROLAC 30 MG/ML 1 ML VIAL IVP PRN (20:44)
[2017-12-16] MEDS: VANCOMYCIN 1,250 MG in SODIUM CHLORIDE 0.9% 250 ML IVPB SCH (23:01)
[2017-12-17] MEDS: ACETAMINOPHEN TAB 325 MG TAB PO PRN ×2 (02:22→09:55)
[2017-12-17] MEDS: ONDANSETRON 4 MG/2 ML VIAL IVP PRN ×2 (02:30→09:55)
[2017-12-17] MEDS: IBUPROFEN 400 MG TAB PO PRN ×3 (03:10→18:02)
[2017-12-17] MEDS ORDERED: ACETAMINOPHEN SUPPOSITORY 650 MG SUPP RECTAL STA (04:15)
--- NOTE | 2017-12-17 08:41 | US ---
EXAMINATION TYPE: US abdomen limited DATE OF EXAM: 12/17/2017 COMPARISON: CT, ultrasound 02/12/2015 CLINICAL HISTORY: Elevated liver enzymes; fever, nausea; gallbladder removed, UTI and sepsis EXAM MEASUREMENTS: Liver Length: 17.7 cm Gallbladder: surgically removed CBD: 0.4 cm Right Kidney: 12.3 x 6.8 x 4.8 cm Pancreas: wnl Liver: periportal wall thickness and brightness noted within . No evidence for mass. Gallbladder: surgically absent Evidence for sonographic Verdugo's sign: no CBD: wnl Right Kidney: wnl Intrahepatic portion of the IVC and proximal bowel aorta are within normal limits. IMPRESSION: 1. No significant interval change from prior examination.
[2017-12-17] MEDS: cefTRIAXone 2,000 MG in SODIUM CHLORIDE 0.9% 100 ML IVPB SCH (08:44)
[2017-12-17] MEDS ORDERED: PANTOPRAZOLE 40 MG/10 ML VIAL IV SCH (09:00)
[2017-12-17] MEDS: VANCOMYCIN 1,250 MG in SODIUM CHLORIDE 0.9% 250 ML IVPB SCH ×2 (09:54→15:12)
[2017-12-17] MEDS ORDERED: LEVOFLOXACIN 750MG-D5W PMX 750 MG in DEXTROSE/WATER 1 150ML.BAG IVPB STA (10:49)
--- NOTE | 2017-12-17 10:56 | ECHOF ---
Referral Reason:Septic emboli, Valve vegitation? MEASUREMENTS -------- HEIGHT: 167.6 cm WEIGHT: 67.6 kg BP: 117/68 RVIDd: 2.4 cm (< 3.3) IVSd: 1.1 cm (0.6 - 1.1) LVIDd: 4.5 cm (3.9 - 5.3) LVPWd: 1.0 cm (0.6 - 1.1) IVSs: 1.5 cm LVIDs: 2.9 cm LVPWs: 1.6 cm LA Diam: 3.1 cm (2.7 - 3.8) LAESV Index (A-L): 18.99 ml/m Ao Diam: 3.1 cm (2.0 - 3.7) AV Cusp: 2.2 cm (1.5 - 2.6) MV EXCURSION: 16.074 mm (> 18.000) MV EF SLOPE: 174 mm/s (70 - 150) EPSS: 0.5 cm MV E Tate: 1.26 m/s MV DecT: 137 ms MV A Tate: 0.97 m/s MV E/A Ratio: 1.29 RAP: 15.00 mmHg RVSP: 40.35 mmHg FINDINGS -------- Resting tachycardia (HR>100bpm). This was a technically good study. The left ventricular size is normal. Left ventricular wall thickness is normal. Overall left vent ricular systolic function is normal with, an EF between 60 - 65 %. The right ventricle is normal in size. Normal LA size by volume 22+/-6 ml/m2. The right atrium is normal in size. Aneurysmal Interatrial septum. The aortic valve is trileaflet and appears structurally normal. The mitral valve is normal. There is trace to mild mitral regurgitation. Mild tricuspid regurgitation present. There is mild pulmonary hypertension. The right ventricular systolic pressure, as measured by Doppler, is 40.35mmHg. Trace/mild (physiologic) pulmonic regurgitation. The aortic root size is normal. The inferior vena cava is dilated with poor inspiratory collapse which is consistent with estimated r ight atrial pressure of 15 mmHg. There is no pericardial effusion. CONCLUSIONS -------- 1. Resting tachycardia (HR>100bpm). 2. This was a technically good study. 3. The left ventricular size is normal. 4. Left ventricular wall thickness is normal. 5. Overall left ventricular systolic function is normal with, an EF between 60 - 65 %. 06. Consier T EE if clinically indicated 6. The right ventricle is normal in size. 7. Normal LA size by volume 22+/-6 ml/m2. 8. The right atrium is normal in size. 9. The aortic valve is trileaflet and appears structurally normal. 10. The mitral valve is normal. 11. There is trace to mild mitral regurgitation. 12. Mild tricuspid regurgitation present. 13. There is mild pulmonary hypertension. 14. The right ventricular systolic pressure, as measured by Doppler, is 40.35mmHg. 15. Trace/mild (physiologic) pulmonic regurgitation. 16. The aortic root size is normal. 17. The inferior vena cava is dilated with poor inspiratory collapse which is consistent with estimat ed right atrial pressure of 15 mmHg. 18. There is no pericardial effusion. OPERATIONS SUPERVISOR 2ND SHIFT: Ángela Kendrick RDCS
[2017-12-17] MEDS: SODIUM CHLORIDE 0.9% 1,000 ML IV SCH (11:22)
[2017-12-17] MEDS: IPRATROPIUM-ALBUTEROL 3 ML NEB INHALATION SCH ×2 (11:58→20:57)
--- NOTE | 2017-12-17 12:28 | P.CNPUL ---
History of Present Illness Consult date: 12/17/17 Requesting physician: Viviana Deal Reason for consult: cough, pneumonia, abnormal CXR/CT Chief complaint: Left posterior chest wall pain, fever chills, pneumonia History of present illness: This is a 22-year-old white female patient of Dr. Otto, who presented to the emergency department on 12/15/2017 with intermittent fevers, left- sided posterior back pain under her shoulder blade, she was exacerbated by deep breathing and coughing. Patient was seen earlier that day at the [facility] where she had an extensive workup. She was found to have hematuria, she has had the fever and chills since of last week. She denies any chance of . She she is coughing, but not producing any phlegm. She also had a tooth ache on , and it is her wisdom tooth on the left side. She does see a dentist, however she did not go to the dentist that day. She went to the emergency room instead. No history of chronic lung disease, patient is a current smoker, pack a day last her 3-4 days. She donates plasma on the regular basis, and her last visit to the [facility] was on Sunday of last week. Denies any sick contacts. CT of abdomen and pelvis was completed, and showed mild free fluid in the cul-de-sac, no renal stone or obstruction. His left pleural effusion, lower lobe bilateral pulmonary consolidation more so on the right side. There was a concern for septic emboli. Chest x-ray showed multiple rounded pulmonary infiltrates. Patient left the emergency room AGAINST MEDICAL ADVICE because she had no quality assurance monitor final. She returned to the emergency room on 12/16/2017, with fever and chills, and persistent left posterior chest wall pain. She was started on broad-spectrum antibiotics including Rocephin and vancomycin, and she was admitted for further management. Urinalysis showed moderate amount of blood, leuks, rare bacteria and mucus. Patient denies any burning, or pressure, she is complaining of urinary frequency. Review of Systems All systems: negative Constitutional: Denies chills, Denies fever Eyes: denies blurred vision, denies pain Ears, nose, mouth and throat: Denies headache, Denies sore throat Cardiovascular: Denies chest pain, Denies shortness of breath Respiratory: Reports cough, Reports pain on inspiration Gastrointestinal: Denies abdominal pain, Denies diarrhea, Denies nausea, Denies vomiting Genitourinary: Denies dysuria, Denies hematuria Musculoskeletal: Denies myalgias Integumentary: Denies pruritus, Denies rash Neurological: Denies numbness, Denies weakness Psychiatric: Denies anxiety, Denies depression Endocrine: Denies fatigue, Denies weight change Past Medical History Past Medical History: No Reported History Additional Past Medical History / Comment(s): Obstetric history: This is her first and she has had care with Dr Garnica since 8 weeks. A+ , abs neg, Rub Imm, RPR NR, Hep B neg. Normal 1hr GTT, GBS neg. Normal anatomy US. History of Any Multi-Drug Resistant Organisms: None Reported Past Surgical History: Cholecystectomy Past Anesthesia/Blood Transfusion Reactions: No Reported Reaction Past Psychological History: No Psychological Hx Reported Smoking Status: Current every day smoker Past Alcohol Use History: None Reported Past Drug Use History: None Reported - Past Family History Father Family Medical History: No Reported History Medications and Allergies Home Medications Medication Instructions Recorded Confirmed Type Amoxic-Pot Clav 875-125Mg 1 tab PO Q12HR #20 tablet 12/15/17 12/16/17 Rx [Augmentin 875-125] Clindamycin [Cleocin] 450 mg PO TID 7 Days capsule 12/15/17 12/16/17 Rx Allergies Allergy/AdvReac Type Severity Reaction Status Date / Time No Known Allergies Allergy Verified 12/16/17 17:00 Physical Exam Vitals: Vital Signs Temp Pulse Pulse Resp BP BP Pulse Ox 12/17/17 06:24 98.3 F 12/17/17 04:00 102 F H 111 H 18 117/68 99 12/16/17 23:29 98.2 F 94 18 125/75 99 12/16/17 20:00 100 F H 95 18 122/70 99 12/16/17 18:30 97.6 F 97 18 111/68 99 12/16/17 17:51 98.1 F 99 16 103/73 99 12/16/17 17:00 89 18 103/73 99 12/16/17 16:00 97.7 F 107 H 20 95/75 99 12/16/17 15:07 98.7 F 107 H 18 106/77 98 12/16/17 15:02 18 12/16/17 14:04 100.8 F H 116 H 20 110/70 99 12/16/17 13:33 99.8 F H 112 H 20 105/66 98 Intake and Output 12/16/17 12/17/17 12/17/17 22:59 06:59 14:59 Intake Total 100 480 Balance 100 480 Intake: Intake, IV Titration 100 Amount Sodium Chloride 0.9% 1, 100 000 ml @ 100 mls/hr IV . Q10H [facility] Rx#:[id number] Oral 480 Other: Weight 67.6 kg GENERAL EXAM: Alert, pleasant 22-year-old white female, comfortable in no apparent distress. HEAD: Normocephalic/atraumatic. EYES: Normal reaction of pupils, equal size. Conjunctiva pink, sclera white. NOSE: Clear with pink turbinates. THROAT: No erythema or exudates. NECK: No masses, no JVD, no thyroid enlargement, no adenopathy. CHEST: No chest wall deformity. Symmetrical expansion. LUNGS: Diminished breath sounds over left lower base CVS: Regular rate and rhythm, normal S1 and S2, no gallops, no murmurs, no rubs. Slightly tachycardic ABDOMEN: Soft, nontender. No hepatosplenomegaly, normal bowel sounds, no guarding or rigidity. EXTREMITIES: No clubbing, no edema, no cyanosis, 2+ pulses and upper and lower extremities. MUSCULOSKELETAL: Muscle strength and tone normal. SPINE: No scoliosis or deformity SKIN: No rashes CENTRAL NERVOUS SYSTEM: Alert and oriented -3. No focal deficits, tone is normal in all 4 extremities. PSYCHIATRIC: Alert and oriented -3. Appropriate affect. Intact judgment and insight. Results - Laboratory Findings CBC and BMP: 12/16/17 13:51 12/16/17 13:51 PT/INR, D-dimer PT 11.1 sec (9.0-12.0) 12/16/17 13:51 INR 1.1 (<1.2) 12/16/17 13:51 D-Dimer 1.01 mg/L FEU (<0.60) H 12/16/17 13:51 Abnormal lab findings: Abnormal Labs 12/16/17 12/16/17 12/16/17 13:51 13:51 13:51 Neutrophils # 8.1 H Lymphocytes # 0.8 L D-Dimer 1.01 H Sodium 136 L Creatinine 0.45 L Glucose 120 H AST 47 H ALT 79 H Alkaline Phosphatase 137 H Total Protein 6.2 L Albumin 3.4 L Urine Appearance Ur Specific [place] Urine Protein Urine Ketones Urine Blood Urine Bilirubin Ur Leukocyte Esterase Urine RBC Urine WBC Ur Squamous Epith Cells Urine Bacteria Urine Mucus 12/16/17 14:45 Neutrophils # Lymphocytes # D-Dimer Sodium Creatinine Glucose AST ALT Alkaline Phosphatase Total Protein Albumin Urine Appearance Cloudy H Ur Specific [place] 1.050 H Urine Protein 1+ H Urine Ketones 2+ H Urine Blood Moderate H Urine Bilirubin 1+ H Ur Leukocyte Esterase Moderate H Urine RBC 60 H Urine WBC 31 H Ur Squamous Epith Cells 19 H Urine Bacteria Rare H Urine Mucus Many H - Diagnostic Findings Chest x-ray: report reviewed, image reviewed CT scan - chest: report reviewed, image reviewed Additional studies: EKG reviewed Assessment and Plan Plan: Assessment: #1. Multifocal pneumonia CT angios of the chest showed numerous bilateral areas of pneumonic airspace consolidation in both lungs. This could also be related to multiple septic emboli, no evidence of pulmonary embolism noted. #2. Urinary tract infection #3. Nicotine dependence, ongoing #4. Elevated d-dimer #5. Elevated transaminases Plan: Continue current antibiotic coverage, ID service has been consulted. Blood cultures urine cultures were sent and are pending at this time. Agree with obtaining echocardiogram. We'll start GI and DVT prophylaxis, urine legionella antigen is pending. Cardiology is following. We'll continue to follow I performed a history & physical examination of the patient and discussed their management with my nurse practitioner, Yolette Roman. I reviewed the nurse practitioner's note and agree with the documented findings and plan of care. Lung sounds are measured breath sounds over left base. The findings and the impression was discussed with the patient. I attest to the documentation by the nurse practitioner. Time with Patient: Greater than 30
[2017-12-17] MEDS: ENOXAPARIN 40 MG/0.4 ML SYRINGE SQ SCH (12:46)
--- NOTE | 2017-12-17 12:51 | P.CRDCN ---
History of Present Illness Consult date: 12/17/17 Requesting physician: Viviana Deal Reason for Consult (text): Rule out endocarditis Chief complaint: Fever History of present illness: This is a 22-year-old female with history of nicotine dependence, marijuana use, no hypertension, no diabetes, no hyperlipidemia, who presents to the hospital on this occasion with symptoms of fever as well as left-sided flank discomfort. According to the patient, symptoms started on , she presented to [facility] where she states she had several lab draws and test done, ultimately was released from there. Patient states that they told her she had a UTI. Symptoms seemed to initially start with what she thought was a toothache, she does have a wisdom tooth there which she felt was giving her some problems. She states that she used Orajel, the symptoms of pain subsided, then following that she had fever and chills and for this reason no initially went to [facility] for further evaluation. The patient also states that on Sunday of last week she donated plasma, this is the first time that she has ever done this before. She denies any IV drug abuse but does state that she uses marijuana. She does have a 3-year-old daughter. Fevers at home and at [facility] according to the patient were running in the range of 102. CTA of the chest was performed which revealed numerous bilateral areas of pneumonic air space consolidation in both lungs. These appear increased as compared with yesterday and consistent with inflammatory disease. They could also represent multiple septic emboli, no evidence of PE. EKG on presentation here showed a sinus tachycardia with nonspecific ST-T wave changes in the anterior leads. Echocardiogram with Doppler study was performed which revealed an ejection fraction of 60-65%. Ultrasound of the abdomen was performed which did not reveal significant interval change from prior exam. Blood pressure 108/ 70 with a heart rate in the low 100s, temperature 102.4 on arrival. 94% on room air. Blood cultures have been drawn and oriented pending. Urine culture is also in progress. White blood cell count 9.7, hemoglobin 12.6, platelet count 160. D-dimer 1.01. Sodium 6, potassium 3.5, BUN 9, creatinine 0.4. AST 47, ALT 79, alk phos 137. Past Medical History Past Medical History: No Reported History Additional Past Medical History / Comment(s): Obstetric history: This is her first and she has had care with Dr Garnica since 8 weeks. A+ , abs neg, Rub Imm, RPR NR, Hep B neg. Normal 1hr GTT, GBS neg. Normal anatomy US. History of Any Multi-Drug Resistant Organisms: None Reported Past Surgical History: Cholecystectomy Past Anesthesia/Blood Transfusion Reactions: No Reported Reaction Past Psychological History: No Psychological Hx Reported Smoking Status: Current every day smoker Past Alcohol Use History: None Reported Past Drug Use History: None Reported - Past Family History Father Family Medical History: No Reported History Medications and Allergies Home Medications Medication Instructions Recorded Confirmed Type Amoxic-Pot Clav 875-125Mg 1 tab PO Q12HR #20 tablet 12/15/17 12/16/17 Rx [Augmentin 875-125] Clindamycin [Cleocin] 450 mg PO TID 7 Days capsule 12/15/17 12/16/17 Rx Allergies Allergy/AdvReac Type Severity Reaction Status Date / Time No Known Allergies Allergy Verified 12/16/17 17:00 Physical Exam Vitals: Vital Signs Temp Pulse Pulse Resp BP BP Pulse Ox 12/17/17 12:10 108 H 12/17/17 12:00 106 H 18 12/17/17 11:59 104 H 12/17/17 11:57 102.4 F H 106 H 18 107/71 94 L 12/17/17 08:00 99.9 F H 92 18 108/77 99 12/17/17 06:24 98.3 F 12/17/17 04:00 102 F H 111 H 18 117/68 99 12/16/17 23:29 98.2 F 94 18 125/75 99 12/16/17 20:00 100 F H 95 18 122/70 99 12/16/17 18:30 97.6 F 97 18 111/68 99 12/16/17 17:51 98.1 F 99 16 103/73 99 12/16/17 17:00 89 18 103/73 99 12/16/17 16:00 97.7 F 107 H 20 95/75 99 12/16/17 15:07 98.7 F 107 H 18 106/77 98 12/16/17 15:02 18 12/16/17 14:04 100.8 F H 116 H 20 110/70 99 12/16/17 13:33 99.8 F H 112 H 20 105/66 98 Intake and Output 12/16/17 12/17/17 12/17/17 22:59 06:59 14:59 Intake Total 100 480 750 Balance 100 480 750 Intake: Intake, IV Titration 100 750 Amount Sodium Chloride 0.9% 1, 100 400 000 ml @ 100 mls/hr IV . Q10H [facility] Rx#:[id number] Vancomycin 1,250 mg In 250 Sodium Chloride 0.9% 250 ml @ 125 mls/hr IVPB Q8HR [facility] Rx#:[id number] cefTRIAXone 2,000 mg In 100 Sodium Chloride 0.9% 100 ml @ 100 mls/hr IVPB Q24HR [facility] Rx#:[id number] Oral 480 Other: Weight 67.6 kg PHYSICAL EXAMINATION: GENERAL: 22-year-old female in no acute distress at the time of my examination HEENT: Head is atraumatic, normocephalic. Pupils equal, round. Sclera anicteric. Conjunctiva are clear. Mucous membranes of the mouth are moist. Neck is supple. There is no elevated jugular venous pressure. No carotid bruit is heard. HEART EXAMINATION: Heart S1, S2 normal. No murmur or gallop heard. CHEST EXAMINATION: Lungs are clear with mild diminished air entry to the bases. ABDOMEN: Soft, nontender. Bowel sounds are heard. No organomegaly noted. EXTREMITIES: 2+ peripheral pulses with no evidence of peripheral edema and no calf tenderness noted. NEUROLOGIC patient is awake, alert and oriented X3. . Results 12/16/17 13:51 12/16/17 13:51 Cardiac Enzymes 12/16/17 Range/Units 13:51 AST 47 H (14-36) U/L Coagulation 12/16/17 Range/Units 13:51 PT 11.1 (9.0-12.0) sec APTT 24.5 (22.0-30.0) sec CBC 12/16/17 Range/Units 13:51 WBC 9.7 (3.8-10.6) k/uL RBC 4.24 (3.80-5.40) m/uL Hgb 12.6 (11.4-16.0) gm/dL Hct 37.9 (34.0-46.0) % Plt Count 160 (150-450) k/uL Comprehensive Metabolic Panel 12/16/17 Range/Units 13:51 Sodium 136 L (137-145) mmol/L Potassium 3.5 (3.5-5.1) mmol/L Chloride 102 (98-107) mmol/L Carbon Dioxide 26 (22-30) mmol/L BUN 9 (7-17) mg/dL Creatinine 0.45 L (0.52-1.04) mg/dL Glucose 120 H (74-99) mg/dL Calcium 8.7 (8.4-10.2) mg/dL AST 47 H (14-36) U/L ALT 79 H (9-52) U/L Alkaline Phosphatase 137 H (38-126) U/L Total Protein 6.2 L (6.3-8.2) g/dL Albumin 3.4 L (3.5-5.0) g/dL Current Medications Generic Name Dose Route Start Last Admin Trade Name Freq PRN Reason Stop Dose Admin Acetaminophen 650 mg 12/16/17 16:05 12/17/17 09:55 Tylenol Tab PO 650 mg Q6HR PRN Administration Mild Pain or Fever > 100.5 Albuterol/Ipratropium 3 ml 12/17/17 13:00 12/17/17 11:58 Duoneb 0.5 Mg-3 Mg/3 Ml Soln INHALATION 3 ml RT-TID [facility] Administration Enoxaparin Sodium 40 mg 12/17/17 11:30 Lovenox SQ DAILY [facility] Sodium Chloride 1,000 mls @ 100 mls/hr 12/16/17 13:45 12/17/17 11:22 Saline 0.9% IV Not Given .Q10H [facility] Vancomycin HCl 1,250 mg/ 250 mls @ 125 mls/hr 12/17/17 00:00 12/17/17 09:54 Sodium Chloride IVPB 125 mls/hr Q8HR [facility] Administration Ceftriaxone Sodium 2,000 mg/ 100 mls @ 100 mls/hr 12/17/17 09:00 12/17/17 08: 44 Sodium Chloride IVPB 100 mls/hr Q24HR [facility] Administration Ibuprofen 400 mg 12/16/17 16:05 12/17/17 03:10 Motrin PO 400 mg Q6HR PRN Administration Mild Pain or Fever > 100.5 Ketorolac Tromethamine 30 mg 12/16/17 16:05 12/16/17 20:44 Toradol IVP 12/21/17 16:06 30 mg Q6HR PRN Administration Moderate Pain Miscellaneous Information 1 each 12/17/17 23:00 Vancomycin Trough Due MISCELLANE 12/17/17 23:01 ONCE ONE Morphine Sulfate 4 mg 12/16/17 16:05 Morphine Sulfate (Inj) IV Q4HR PRN Severe Pain Naloxone HCl 0.2 mg 12/16/17 16:05 Narcan IV Q2M PRN Opioid Reversal Ondansetron HCl 4 mg 12/16/17 16:05 12/17/17 09:55 Zofran IVP 4 mg Q8HR PRN Administration Nausea And Vomiting Pantoprazole Sodium 40 mg 12/17/17 09:00 12/17/17 08:44 Protonix IV 40 mg DAILY [facility] Administration Intake and Output 12/16/17 12/17/17 12/17/17 22:59 06:59 14:59 Intake Total 100 480 750 Balance 100 480 750 Intake: Intake, IV Titration 100 750 Amount Sodium Chloride 0.9% 1, 100 400 000 ml @ 100 mls/hr IV . Q10H [facility] Rx#:[id number] Vancomycin 1,250 mg In 250 Sodium Chloride 0.9% 250 ml @ 125 mls/hr IVPB Q8HR [facility] Rx#:[id number] cefTRIAXone 2,000 mg In 100 Sodium Chloride 0.9% 100 ml @ 100 mls/hr IVPB Q24HR [facility] Rx#:[id number] Oral 480 Other: Weight 67.6 kg 12/16/17 13:51 12/16/17 13:51 EKG Interpretations (text) EKG shows normal sinus rhythm with nonspecific ST-T wave changes noted in the anterior leads Assessment and Plan Plan: Assessment and plan: #1. Elevated fevers of up to 102 with evidence of multifocal pneumonia CT angios of the chest showed numerous bilateral areas of pneumonic airspace consolidation in both lungs. This could also be related to multiple septic emboli, no evidence of pulmonary embolism noted. Blood cultures pending. #2. Urinary tract infection #3. Nicotine dependence, ongoing #4. Elevated d-dimer, no PE on CTA of the chest #5. Elevated transaminases #6 Recent plasma donation #7 Marijuana use #8 elevated AST ALT and alk phos. Plan Echocardiogram with Doppler study was performed which revealed an ejection fraction of 60-65%. Trace to mild mitral regurg, no pericardial effusion. Cardiology was requested to see the patient to perform transesophageal echocardiographic study because of the possibility of septic emboli. The details of the test as well as the risks and benefits were explained to the patient and her family in detail. Further recommendations to follow. DNP note has been reviewed, I agree with a documented findings and plan of care. Patient was seen and examined.
[2017-12-17 16:32] LABS: ALT 57 U/L (9-52); AST 23 U/L (14-36); Albumin 2.4 g/dL (3.5-5.0); Alkaline Phosphatase 120 U/L (38-126); Anion Gap 6 mmol/L; Blood Urea Nitrogen 6 mg/dL (7-17); Calcium 7.9 mg/dL (8.4-10.2); Carbon Dioxide 28 mmol/L (22-30); Chloride 103 mmol/L (98-107); Glucose 113 mg/dL (74-99); Potassium 3.1 mmol/L (3.5-5.1); Sodium 137 mmol/L (137-145); Total Bilirubin 0.5 mg/dL (0.2-1.3); Total Protein 4.7 g/dL (6.3-8.2)
[2017-12-17] MEDS ORDERED: guaiFENesin SYRUP 100MG/5ML 200 MG/10 ML CUP PO PRN (22:01)
--- NOTE | 2017-12-17 22:24 | PN ---
PROGRESS NOTE DATE OF SERVICE: 12/17/2017 REASON FOR FOLLOWUP: Fever and possible septic emboli versus pneumonia. INTERVAL HISTORY: The patient did spike another fever of 102.4 degrees Fahrenheit this morning. She has been not feeling as great as yesterday. She did have a cough which is more a dry, hacking cough, and was not bringing up any sputum. No chest pain. No abdominal pain. No nausea or vomiting. No diarrhea. PHYSICAL EXAMINATION: Blood pressure is 99/71 with a pulse of 93, temperature 99.1. She is 94% on room air. General description is a young female lying in bed in no distress. RESPIRATORY SYSTEM: Unlabored breathing with decreased breath sounds at the bases. No wheeze. HEART: S1, S2. Regular rate and rhythm. ABDOMEN: Soft. No tenderness. LABS: BUN of 6, creatinine 0.47. Influenza A/B has been negative. Blood culture has been negative so far. DIAGNOSTIC IMPRESSION AND PLAN: Patient admitted to hospital with fever in this patient who did have a CT suggestive of possible septic emboli. The patient's symptoms started with a toothache with a question of possibly related to oral misael. Ultrasound has been negative for any vegetations. With developing respiratory symptom of cough and concern about possible atypical pneumonia, Levaquin has been added. requested yesterday. Will follow her clinical course closely. Continue with supportive care. MMODL / IJN: [id number] /
[2017-12-17] MEDS ORDERED: VANCOMYCIN TROUGH DUE 1 EACH MISC MISCELLANE ONE (23:00)
--- NOTE | 2017-12-17 23:04 | P.PN ---
Subjective Progress Note Date: 12/17/17 Principal diagnosis: Septic emboli Multifocal bronchopneumonia Patient is a 22-year-old female without significant past medical history who has been feeling well until last came to the hospital with complaints of left sided back pain mainly below the left scapula. Patient was in her usual state of health until last . On night she developed left -sided back pain. Patient also had right molar tooth pain and he used oral Listerine mouthwash. One-hour lateral patient developed severe left flank pain. Patient has been having fevers on and off at home. Patient initially presented to [facility] on Sunday and was sent home with possible acute viral syndrome. Next today Patient came to [facility] Hospital on Sunday. Patient had CT abdomen and pelvis and chest x-ray at the time. Chest x-ray showed multiple septic emboli/metastatic lesions and urinary tract infection. Patient left AMA and came back today with complaints of difficulty breathing fever and left upper back pain. Denied any cough or sputum production. No nausea vomiting or diarrhea. CT of the abdomen pelvis showed mild fluid in the cul-de-sac. left pleural effusion. Bilateral pulmonary consolidation more on the left side. This is likely bronchopneumonia. Septic emboli and mental status is a consideration. CT of the abdomen pelvis showed multiple areas of pneumonic airspace consolidation both lungs. These appear to be increased compared to yesterday and is consistent with an estimated disease. This could be multiple septic emboli. WBC 9.7 D-dimer 1.01 UA is cloudy with leukocyte esterase moderate and WBC greater than 31 Patient denied any history of IV drug abuse. 12/17/2017 Patient denied any complaints of chest pain. Shortness of breath is stable. Otherwise patient is still febrile with T-max 102F. Patient is being continued on antibiotics in the form of ceftriaxone and vancomycin. Blood cultures and urine cultures show no growth so far. 2-D Echocardiogram with Doppler study was performed which revealed an ejection fraction of 60-65%. Trace to mild mitral regurg, no pericardial effusion. LFTs slightly improved. No complaints of nausea vomiting or abdominal pain. Patient is being followed by ID, pulmonary and cardiology. All other review of systems negative except the above Active Medications Generic Name Dose Route Start Last Admin Trade Name Freq PRN Reason Stop Dose Admin Acetaminophen 650 mg 12/16/17 16:05 12/17/17 09:55 Tylenol Tab PO 650 mg Q6HR PRN Administration Mild Pain or Fever > 100.5 Albuterol/Ipratropium 3 ml 12/17/17 13:00 12/17/17 20:57 Duoneb 0.5 Mg-3 Mg/3 Ml Soln INHALATION 3 ml RT-TID SHAHID Administration Enoxaparin Sodium 40 mg 12/17/17 11:30 12/17/17 12:46 Lovenox SQ 40 mg DAILY [facility] Administration Guaifenesin 200 mg 12/17/17 22:01 Robitussin PO Q6H PRN Cough Sodium Chloride 1,000 mls @ 100 mls/hr 12/16/17 13:45 12/17/17 11:22 Saline 0.9% IV Not Given .Q10H SHAHID Vancomycin HCl 1,250 mg/ 250 mls @ 125 mls/hr 12/17/17 00:00 12/17/17 15:12 Sodium Chloride IVPB 125 mls/hr Q8HR [facility] Administration Ceftriaxone Sodium 2,000 mg/ 100 mls @ 100 mls/hr 12/17/17 09:00 12/17/17 08: 44 Sodium Chloride IVPB 100 mls/hr Q24HR [facility] Administration Ibuprofen 400 mg 12/16/17 16:05 12/17/17 18:02 Motrin PO 400 mg Q6HR PRN Administration Mild Pain or Fever > 100.5 Ketorolac Tromethamine 30 mg 12/16/17 16:05 12/16/17 20:44 Toradol IVP 12/21/17 16:06 30 mg Q6HR PRN Administration Moderate Pain Morphine Sulfate 4 mg 12/16/17 16:05 Morphine Sulfate (Inj) IV Q4HR PRN Severe Pain Naloxone HCl 0.2 mg 12/16/17 16:05 Narcan IV Q2M PRN Opioid Reversal Ondansetron HCl 4 mg 12/16/17 16:05 12/17/17 09:55 Zofran IVP 4 mg Q8HR PRN Administration Nausea And Vomiting Pantoprazole Sodium 40 mg 12/18/17 07:30 Protonix PO AC-BRKFST [facility] Objective - Vital Signs Vital signs: Vital Signs Temp 99.1 F 12/17/17 15:31 Pulse 93 12/17/17 15:31 Resp 18 12/17/17 15:31 BP 99/71 12/17/17 15:31 Pulse Ox 94 L 12/17/17 15:31 Intake & Output 12/16/17 12/17/17 12/17/17 18:59 06:59 18:59 Intake Total 580 1110 Balance 580 1110 Weight 67.6 kg Intake: Intake, IV Titration 100 750 Amount Sodium Chloride 0.9% 1, 100 400 000 ml @ 100 mls/hr IV . Q10H SHAHID Rx#:[id number] Vancomycin 1,250 mg In 250 Sodium Chloride 0.9% 250 ml @ 125 mls/hr IVPB Q8HR [facility] Rx#:[id number] cefTRIAXone 2,000 mg In 100 Sodium Chloride 0.9% 100 ml @ 100 mls/hr IVPB Q24HR SHAHID Rx#:[id number] Oral 480 360 - Exam PHYSICAL EXAMINATION: Patient is lying in the bed comfortably, no acute distress, awake alert and oriented.. HEENT: Normocephalic. Neck is supple. Pupils reactive. Nostrils clear. Oral cavity is moist. Ears reveal no drainage. Neck reveals no JVD, carotid bruits, or thyromegaly. CHEST EXAMINATION: Trachea is central. Symmetrical expansion. Right basilar bronchial sounds. No wheezing. Nonlabored breathing. CARDIAC: Normal S1, S2 with no gallops. No murmurs ABDOMEN: Soft. Bowel sounds normal. No organomegaly. No abdominal bruits. Extremities: reveal no edema. No clubbing or cyanosis Neurologically awake, alert, oriented x3 with well-coordinated movements. No focal deficits noted Skin: No rash or skin lesions. Psychiatric: Coperative. Nonsuicidal Musculoskeletal: No joint swelling or deformity. Normal range of motion. - Labs CBC & Chem 7: 12/16/17 13:51 12/17/17 15:46 Labs: Microbiology - Last 24 Hours (Table) 12/16/17 14:45 Urine Culture - Preliminary Urine,Voided Assessment and Plan Assessment: Multiple septic emboli in the lung. Suspected infective endocarditis with poor dentition and possible tooth infection Multifocal bronchopneumonia. Patient did not have any respiratory symptoms on admission. Acute urinary tract infection with E. coli. Urine culture done on 12/15/2017 Elevated liver enzymes Poor dentition No history of IVDU Plan: Patient will be continued on antibiotics in the form of ceftriaxone 2 g every 24 hours along with vancomycin. Continue with IV fluids. Follow-up blood cultures and urine cultures were sent. Urine culture done on 12/15/2017 showing gram-negative bacilli/E. coli.. ID, pulmonary and cardiology is following. 2-D echocardiogram was ordered. If negative AMALIA will be considered as per cardiology. Follow-up culture reports and further recommendations based on the clinical course. Prognosis is guarded. Discussed with the family in detail at bedside.. Time with Patient: Greater than 30
[2017-12-17 23:26] LABS: Anion Gap 5 mmol/L; Blood Urea Nitrogen 7 mg/dL (7-17); Calcium 7.7 mg/dL (8.4-10.2); Carbon Dioxide 27 mmol/L (22-30); Chloride 103 mmol/L (98-107); Glucose 150 mg/dL (74-99); Potassium 2.8 mmol/L (3.5-5.1); Sodium 135 mmol/L (137-145)
[2017-12-18] MEDS: IBUPROFEN 400 MG TAB PO PRN ×3 (02:22→16:09)
[2017-12-18] MEDS: VANCOMYCIN 1,250 MG in SODIUM CHLORIDE 0.9% 250 ML IVPB SCH ×2 (02:24→10:22)
[2017-12-18] MEDS: SODIUM CHLORIDE 0.9% 1,000 ML IV SCH ×3 (06:41→17:43)
[2017-12-18 06:48] LABS: Basophils % (A) 0 %; Eosinophils # (A) 0.1 k/uL (0-0.7); Eosinophils % (A) 2 %; HCT 29.3 % (34.0-46.0); Lymphocytes # (A) 0.9 k/uL (1.0-4.8); Lymphocytes % (A) 16 %; MCH 29.9 pg (25.0-35.0); MCHC 33.2 g/dL (31.0-37.0); Mean Platelet Volume 7.6; Monocytes # (A) 0.3 k/uL (0-1.0); Monocytes % (A) 5 %; Neutrophils # (A) 4.4 k/uL (1.3-7.7); Neutrophils % (A) 75 %; Platelet Count 154 k/uL (150-450); RBC 3.25 m/uL (3.80-5.40); WBC 5.8 k/uL (3.8-10.6)
[2017-12-18 06:55] LABS: HGB 9.7 gm/dL (11.4-16.0)
[2017-12-18] MEDS: ENOXAPARIN 40 MG/0.4 ML SYRINGE SQ SCH (07:55)
[2017-12-18] MEDS: cefTRIAXone 2,000 MG in SODIUM CHLORIDE 0.9% 100 ML IVPB SCH (07:56)
[2017-12-18] MEDS: PANTOPRAZOLE 40 MG TABLET PO SCH (07:56)
[2017-12-18] MEDS: IPRATROPIUM-ALBUTEROL 3 ML NEB INHALATION SCH ×3 (08:45→20:26)
--- NOTE | 2017-12-18 09:25 | PN ---
PROGRESS NOTE Mrs. Eugene is a 22-year-old female who presented with symptoms of dyspnea and fever. She had a normal chest x-ray and CT scan. She has been seen by Dr. Willett yesterday and I discussed the case with him and the feeling was if her blood pressures are negative will hold on a AMALIA at this time unless he feels this is indicated. She feels better this morning, her breathing is stable. She is denying any chest pain. No dizziness. No palpitation. She denies any nausea. She continues to be on her IV antibiotics and Lovenox subcu. PHYSICAL EXAMINATION: Blood pressure 111/70 with a heart rate in the 90s. Temperature 98.1. She was 100.2 early this morning. LUNGS: No wheezes. HEART: Regular rate and rhythm. S1, S2. No S3. No rub or gallop appreciated. ABDOMEN: Soft, nontender. EXTREMITIES: No edema. LAB DATA: Revealed potassium 2.8, BUN and creatinine 7 and 0.47. Hemoglobin 9.7, white blood cell of 5.8. Her blood culture so far are negative. IMPRESSION: 1. Infectious process of unclear source. No clear evidence to suggest endocarditis at this time. Her transthoracic echocardiogram is unremarkable and she has no cardiac findings to suggest a heart murmur. 2. Urinary tract infection. 3. Chronic tobacco use. RECOMMENDATION: From the cardiac standpoint, will continue on the present therapy. Will continue clinical observation. If Dr. Willett feels that the AMALIA is needed, then we will proceed with that. MMODL / IJN: [id number] /
--- NOTE | 2017-12-18 10:54 | P.PN ---
Subjective Progress Note Date: 12/18/17 Principal diagnosis: Multifocal pneumonia This is a 22-year-old white female patient of Dr. Otto, who presented to the emergency department on 12/15/2017 with intermittent fevers, left- sided posterior back pain under her shoulder blade, she was exacerbated by deep breathing and coughing. Patient was seen earlier that day at the [facility] where she had an extensive workup. She was found to have hematuria, she has had the fever and chills since of last week. She denies any chance of . She she is coughing, but not producing any phlegm. She also had a tooth ache on , and it is her wisdom tooth on the left side. She does see a dentist, however she did not go to the dentist that day. She went to the emergency room instead. No history of chronic lung disease, patient is a current smoker, pack a day last her 3-4 days. She donates plasma on the regular basis, and her last visit to the [facility] was on Sunday of last week. Denies any sick contacts. CT of abdomen and pelvis was completed, and showed mild free fluid in the cul-de-sac, no renal stone or obstruction. His left pleural effusion, lower lobe bilateral pulmonary consolidation more so on the right side. There was a concern for septic emboli. Chest x-ray showed multiple rounded pulmonary infiltrates. Patient left the emergency room AGAINST MEDICAL ADVICE because she had no draw operator. She returned to the emergency room on 12/16/2017, with fever and chills, and persistent left posterior chest wall pain. She was started on broad-spectrum antibiotics including Rocephin and vancomycin, and she was admitted for further management. Urinalysis showed moderate amount of blood, leuks, rare bacteria and mucus. Patient denies any burning, or pressure, she is complaining of urinary frequency. The patient is seen again today 12/18/2017 in follow-up on the selective care unit. He is awake and alert in no acute distress. She is currently maintaining good O2 saturations in the mid 90s on room air. She is currently afebrile. 4 AM temperature was 102.0. Hemodynamically stable. Blood culture reveals no growth to date. Urine culture is pending. White count 5.8. Hemoglobin 9.7. She is currently on ceftriaxone and vancomycin. He has been consulted. Transfer thoracic echocardiogram did not reveal any evidence of vegetation. Abdominal ultrasound was negative. Objective - Vital Signs Vital signs: Vital Signs Temp 98.1 F 12/18/17 08:00 Pulse 100 12/18/17 08:54 Resp 18 12/18/17 08:00 BP 111/75 12/18/17 08:00 Pulse Ox 96 12/18/17 08:00 Intake & Output 12/17/17 12/18/17 12/18/17 18:59 06:59 18:59 Intake Total 1110 1000 240 Balance 1110 1000 240 Weight 67.6 kg Intake: Intake, IV Titration 750 1000 Amount Sodium Chloride 0.9% 1, 400 900 000 ml @ 100 mls/hr IV . Q10H SHAHID Rx#:[id number] Vancomycin 1,250 mg In 250 Sodium Chloride 0.9% 250 ml @ 125 mls/hr IVPB Q8HR [facility]ID Rx#:[id number] cefTRIAXone 2,000 mg In 100 100 Sodium Chloride 0.9% 100 ml @ 100 mls/hr IVPB Q24HR [facility]AHID Rx#:[id number] Oral 360 240 Other: # Voids 3 - Exam GENERAL EXAM: Alert, pleasant 22-year-old white female, comfortable in no apparent distress. Currently on room air. HEAD: Normocephalic/atraumatic. EYES: Normal reaction of pupils, equal size. Conjunctiva pink, sclera white. NOSE: Clear with pink turbinates. THROAT: No erythema or exudates. NECK: No masses, no JVD, no thyroid enlargement, no adenopathy. CHEST: No chest wall deformity. Symmetrical expansion. LUNGS: Diminished breath sounds over left lower base CVS: Regular rate and rhythm, normal S1 and S2, no gallops, no murmurs, no rubs. Slightly tachycardic ABDOMEN: Soft, nontender. No hepatosplenomegaly, normal bowel sounds, no guarding or rigidity. EXTREMITIES: No clubbing, no edema, no cyanosis, 2+ pulses and upper and lower extremities. MUSCULOSKELETAL: Muscle strength and tone normal. SPINE: No scoliosis or deformity SKIN: No rashes CENTRAL NERVOUS SYSTEM: Alert and oriented -3. No focal deficits, tone is normal in all 4 extremities. PSYCHIATRIC: Alert and oriented -3. Appropriate affect. Intact judgment and insight. - Labs CBC & Chem 7: 12/18/17 06:31 12/17/17 23:03 Labs: Abnormal Lab Results - Last 24 Hours (Table) 12/17/17 12/17/17 12/18/17 Range/Units 15:46 23:03 06:31 RBC 3.25 L (3.80-5.40) m/uL Hgb 9.7 L D (11.4-16.0) gm/dL Hct 29.3 L (34.0-46.0) % Lymphocytes # 0.9 L (1.0-4.8) k/uL Sodium 135 L (137-145) mmol/L Potassium 3.1 L 2.8 L (3.5-5.1) mmol/L BUN 6 L (7-17) mg/dL Creatinine 0.47 L 0.46 L (0.52-1.04) mg/dL Glucose 113 H 150 H (74-99) mg/dL Calcium 7.9 L 7.7 L (8.4-10.2) mg/dL ALT 57 H (9-52) U/L Total Protein 4.7 L (6.3-8.2) g/dL Albumin 2.4 L (3.5-5.0) g/dL Microbiology - Last 24 Hours (Table) 12/16/17 13:51 Blood Culture - Preliminary Blood No Growth after 24 hours Assessment and Plan Assessment: Assessment: #1. Multifocal pneumonia CT angios of the chest showed numerous bilateral areas of pneumonic airspace consolidation in both lungs. This could also be related to multiple septic emboli, no evidence of pulmonary embolism noted. No evidence of vegetation on transthoracic echocardiogram. #2. Urinary tract infection him a cultures are pending. #3. Nicotine dependence, ongoing #4. Elevated d-dimer and a CT showed no evidence of pulmonary embolism. #5. Elevated transaminases abdominal abdominal ultrasound negative. Plan: The patient was seen and evaluated by Dr. Willett. He remains on ceftriaxone and vancomycin. ID is on the case. She did receive Levaquin yesterday as well. Maintaining good O2 saturations in the 90s on room air. No significant cough or congestion. Blood and urine cultures are pending. Urine Legionella pending. Echocardiogram reviewed. No evidence of vegetation on transthoracic. May consider AMALIA. In the interim, we'll continue her current treatment plan. She is encouraged regarding the importance of complete smoking cessation. We will increase her activity as tolerated. We'll continue to follow. I, the cosigning physician, performed a history & physical examination of the patient. Lungs sounds with bilateral scattered rhonchi, more so on the right lung base. Maintaining good O2 saturations in the 90s on room air. I discussed the assessment and plan of care with my nurse practitioner, Gretchen Mccloud. I attest to the above note as dictated by her.
[2017-12-18 11:43] LABS: Magnesium 1.8 mg/dL (1.6-2.3); Potassium 3.2 mmol/L (3.5-5.1)
[2017-12-18] MEDS ORDERED: Potassium Replacement Protocol 1 EACH MISC MISCELLANE PRN (11:47)
[2017-12-18] MEDS ORDERED: Magnesium Replacement Protocol 1 EACH MISC MISCELLANE PRN (11:47)
[2017-12-18] MEDS: POTASSIUM CHLORIDE ER 20 MEQ TAB.ER PO SCH ×4 (12:33→19:34)
[2017-12-18] MEDS: MAGNESIUM SULFATE-D5W PMX 1 GM in DEXTROSE/WATER 1 100ML.BAG IVPB SCH ×2 (12:49→13:38)
[2017-12-18] MEDS: ACETAMINOPHEN TAB 325 MG TAB PO PRN ×2 (13:39→20:57)
[2017-12-18] MEDS: LEVOFLOXACIN 750 MG TAB PO SCH (13:39)
[2017-12-18] MEDS ORDERED: VANCOMYCIN 1,250 MG in SODIUM CHLORIDE 0.9% 250 ML IVPB SCH (16:00)
--- NOTE | 2017-12-18 17:40 | PN ---
PROGRESS NOTE DATE OF SERVICE: 12/18/2017 REASON FOR FOLLOWUP: Possible pneumonia and a question of endocarditis. INTERVAL HISTORY: The patient's overall fever pattern has improved. The highest temperature this morning has been 100.2. The patient is feeling better. She did have a dry cough which has decreased in intensity. She is not bringing up any sputum. No chest pain. The patient's left lower chest pain has resolved. No nausea or vomiting. No abdominal pain and no diarrhea. PHYSICAL EXAMINATION: Blood pressure 96/66, pulse of 76, temperature 98.6. She is 98% on room air. General description is a young female lying in bed in no distress. RESPIRATORY SYSTEM: Unlabored breathing. Clear to auscultation anteriorly. HEART: S1, S2. Regular rate and rhythm. ABDOMEN: Soft. No tenderness. LABS: Hemoglobin 9.7, white count 5.8 with a BUN of 7, creatinine 0.46. Vancomycin trough has been 0.5. Blood culture has been negative. She did have blood cultures done at [facility]; those were negative before the antibiotic was started. DIAGNOSTIC IMPRESSION AND PLAN: Patient admitted to hospital with a fever with concern for possible septic emboli versus an atypical pneumonia; clinically favoring pneumonia rather than endocarditis. Blood culture has been negative. Echocardiogram did not show any vegetation. The patient's symptoms have shown clinical improvement after addition of Levaquin yesterday. That will be continued. With the vancomycin level being so low, clinically doubt vancomycin is helpful and will discontinue the vancomycin to decrease risk of nephrotoxicity. We are waiting for the urine for legionella antigen that was requested and is currently pending. Family was present at the bedside. Their questions were answered. MMODL / IJN: [id number] /
--- NOTE | 2017-12-18 17:55 | P.PN ---
Subjective Progress Note Date: 12/18/17 Progress note being dictated for Dr. holguin Principal diagnosis: Septic emboli Multifocal bronchopneumonia Patient is a 22-year-old female without significant past medical history who has been feeling well until last came to the hospital with complaints of left sided back pain mainly below the left scapula. Patient was in her usual state of health until last . On night she developed left -sided back pain. Patient also had right molar tooth pain and he used oral Listerine mouthwash. One-hour lateral patient developed severe left flank pain. Patient has been having fevers on and off at home. Patient initially presented to [facility] on Sunday and was sent home with possible acute viral syndrome. Next today Patient came to [facility] on Sunday. Patient had CT abdomen and pelvis and chest x-ray at the time. Chest x-ray showed multiple septic emboli/metastatic lesions and urinary tract infection. Patient left AMA and came back today with complaints of difficulty breathing fever and left upper back pain. Denied any cough or sputum production. No nausea vomiting or diarrhea. CT of the abdomen pelvis showed mild fluid in the cul-de-sac. left pleural effusion. Bilateral pulmonary consolidation more on the left side. This is likely bronchopneumonia. Septic emboli and mental status is a consideration. CT of the abdomen pelvis showed multiple areas of pneumonic airspace consolidation both lungs. These appear to be increased compared to yesterday and is consistent with an estimated disease. This could be multiple septic emboli. WBC 9.7 D-dimer 1.01 UA is cloudy with leukocyte esterase moderate and WBC greater than 31 Patient denied any history of IV drug abuse. 12/17/2017 Patient denied any complaints of chest pain. Shortness of breath is stable. Otherwise patient is still febrile with T-max 102F. Patient is being continued on antibiotics in the form of ceftriaxone and vancomycin. Blood cultures and urine cultures show no growth so far. 2-D Echocardiogram with Doppler study was performed which revealed an ejection fraction of 60-65%. Trace to mild mitral regurg, no pericardial effusion. LFTs slightly improved. No complaints of nausea vomiting or abdominal pain. Patient is being followed by ID, pulmonary and cardiology. All other review of systems negative except the above Active Medications Generic Name Dose Route Start Last Admin Trade Name Freq PRN Reason Stop Dose Admin Acetaminophen 650 mg 12/16/17 16:05 12/17/17 09:55 Tylenol Tab PO 650 mg Q6HR PRN Administration Mild Pain or Fever > 100.5 Albuterol/Ipratropium 3 ml 12/17/17 13:00 12/17/17 20:57 Duoneb 0.5 Mg-3 Mg/3 Ml Soln INHALATION 3 ml RT-TID [facility] Administration Enoxaparin Sodium 40 mg 12/17/17 11:30 12/17/17 12:46 Lovenox SQ 40 mg DAILY [facility] Administration Guaifenesin 200 mg 12/17/17 22:01 Robitussin PO Q6H PRN Cough Sodium Chloride 1,000 mls @ 100 mls/hr 12/16/17 13:45 12/17/17 11:22 Saline 0.9% IV Not Given .Q10H SHAHID Vancomycin HCl 1,250 mg/ 250 mls @ 125 mls/hr 12/17/17 00:00 12/17/17 15:12 Sodium Chloride IVPB 125 mls/hr Q8HR [facility] Administration Ceftriaxone Sodium 2,000 mg/ 100 mls @ 100 mls/hr 12/17/17 09:00 12/17/17 08: 44 Sodium Chloride IVPB 100 mls/hr Q24HR [facility] Administration Ibuprofen 400 mg 12/16/17 16:05 12/17/17 18:02 Motrin PO 400 mg Q6HR PRN Administration Mild Pain or Fever > 100.5 Ketorolac Tromethamine 30 mg 12/16/17 16:05 12/16/17 20:44 Toradol IVP 12/21/17 16:06 30 mg Q6HR PRN Administration Moderate Pain Morphine Sulfate 4 mg 12/16/17 16:05 Morphine Sulfate (Inj) IV Q4HR PRN Severe Pain Naloxone HCl 0.2 mg 12/16/17 16:05 Narcan IV Q2M PRN Opioid Reversal Ondansetron HCl 4 mg 12/16/17 16:05 12/17/17 09:55 Zofran IVP 4 mg Q8HR PRN Administration Nausea And Vomiting Pantoprazole Sodium 40 mg 12/18/17 07:30 Protonix PO AC-BRKFST [facility] 12/18/2017 feeling better today. receiving potassium and magnesium supplements. T-max 102, currently afebrile. No significant cough. Maintained on IV antibiotics of Levaquin and Rocephin. Urine culture pending, preliminary blood culture negative. AMALIA remains on hold currently. Echo did not report vegetation. Abdominal ultrasound reporting no interval change. Maintaining O2 sats in the mid 90s on room air. Denies chest pain, palpitations or increasing shortness of breath. Objective - Vital Signs Vital signs: Vital Signs Temp 98.6 F 12/18/17 16:07 Pulse 76 12/18/17 16:31 Resp 18 12/18/17 16:31 BP 96/66 12/18/17 16:31 Pulse Ox 98 12/18/17 16:31 Intake & Output 12/17/17 12/18/17 12/18/17 18:59 06:59 18:59 Intake Total 1110 1000 980 Balance 1110 1000 980 Weight 67.6 kg Intake: Intake, IV Titration 750 1000 500 Amount Sodium Chloride 0.9% 1, 400 900 400 000 ml @ 100 mls/hr IV . Q10H SHAHID Rx#:[id number] Vancomycin 1,250 mg In 250 Sodium Chloride 0.9% 250 ml @ 125 mls/hr IVPB Q8HR [facility] Rx#:[id number] cefTRIAXone 2,000 mg In 100 100 100 Sodium Chloride 0.9% 100 ml @ 100 mls/hr IVPB Q24HR [facility] Rx#:[id number] Oral 360 480 Other: # Voids 3 2 - Exam PHYSICAL EXAMINATION: Patient is sitting in the bed comfortably, no acute distress, awake alert and oriented.. HEENT: Normocephalic. Neck is supple. Pupils reactive. Poor dentition. Conjunctivae pink, Nostrils clear. Oral cavity is moist. Neck reveals no JVD, carotid bruits, or thyromegaly. CHEST EXAMINATION: Trachea is central. Symmetrical expansion. Right basilar bronchial sounds. Scattered rhonchi, No wheezing. Nonlabored breathing. No congestion. CARDIAC: Normal S1, S2 with no gallops. No murmurs . Mild tachycardia ABDOMEN: Soft. Bowel sounds normal. No organomegaly. No abdominal bruits. Extremities: reveal no edema. No clubbing or cyanosis Neurologically awake, alert, oriented x3 with well-coordinated movements. No focal deficits noted Skin: No rash or skin lesions. Psychiatric: Coperative. Nonsuicidal Musculoskeletal: No joint swelling or deformity. Normal range of motion. Microbiology 12/16/17 13:51 Blood Blood Culture - Preliminary No Growth after 48 hours 12/16/17 14:45 Urine,Voided Urine Culture - Preliminary - Labs CBC & Chem 7: 12/18/17 06:31 12/18/17 16:27 Labs: Abnormal Lab Results - Last 24 Hours (Table) 12/17/17 12/18/17 12/18/17 Range/Units 23:03 06:30 06:31 RBC 3.25 L (3.80-5.40) m/uL Hgb 9.7 L D (11.4-16.0) gm/dL Hct 29.3 L (34.0-46.0) % Lymphocytes # 0.9 L (1.0-4.8) k/uL Sodium 135 L (137-145) mmol/L Potassium 2.8 L 3.2 L (3.5-5.1) mmol/L Creatinine 0.46 L (0.52-1.04) mg/dL Glucose 150 H (74-99) mg/dL Calcium 7.7 L (8.4-10.2) mg/dL 12/18/17 Range/Units 16:27 RBC (3.80-5.40) m/uL Hgb (11.4-16.0) gm/dL Hct (34.0-46.0) % Lymphocytes # (1.0-4.8) k/uL Sodium (137-145) mmol/L Potassium 3.2 L (3.5-5.1) mmol/L Creatinine (0.52-1.04) mg/dL Glucose (74-99) mg/dL Calcium (8.4-10.2) mg/dL Microbiology - Last 24 Hours (Table) 12/16/17 13:51 Blood Culture - Preliminary Blood No Growth after 48 hours Assessment and Plan Assessment: Multiple septic emboli in the lung. Multifocal pneumonia. Suspected infective endocarditis with poor dentition and possible tooth infection-no evidence of vegetation on echo; AMALIA on hold Multifocal bronchopneumonia. Patient did not have any respiratory symptoms on admission. Acute urinary tract infection with E. coli. Urine culture done on 12/15/2017 Elevated liver enzymes Poor dentition No history of IVDU Hypokalemia Hypomagnesemia Plan: Continue on current medication regime ,monitoring and symptomatic treatment. Maintain IV fluid hydration, IV antibiotics, Rocephin and Levaquin as per infectious disease. Persistent fevers, blood culture repeated. No AMALIA recommended at this time as per cardiology & pulmonary. Increase ambulation as tolerated. Smoking cessation readdressed. Follow closely with multiple consults. Further recommendations to follow The impression and plan of care has been dictated as directed. : I performed a history and examination of this patient, discussed the same with the dictator. I agree with the dictator's note ,documented as a scribe. Any additional findings or plans will be noted.
[2017-12-19] MEDS: TEMAZEPAM 15 MG CAP PO PRN ×2 (01:11→23:52)
[2017-12-19] MEDS: POTASSIUM CHLORIDE ER 20 MEQ TAB.ER PO SCH ×2 (01:11→03:38)
[2017-12-19] MEDS: KETOROLAC 30 MG/ML 1 ML VIAL IVP PRN ×2 (05:07→20:39)
[2017-12-19] MEDS: PANTOPRAZOLE 40 MG TABLET PO SCH (06:38)
[2017-12-19] MEDS: SODIUM CHLORIDE 0.9% 1,000 ML IV SCH ×2 (06:40→08:04)
[2017-12-19] MEDS: ENOXAPARIN 40 MG/0.4 ML SYRINGE SQ SCH ×2 (08:04→08:07)
[2017-12-19] MEDS: cefTRIAXone 2,000 MG in SODIUM CHLORIDE 0.9% 100 ML IVPB SCH (08:04)
[2017-12-19] MEDS: IPRATROPIUM-ALBUTEROL 3 ML NEB INHALATION SCH ×3 (08:14→20:59)
--- NOTE | 2017-12-19 09:05 | XR ---
EXAMINATION TYPE: XR chest 2V DATE OF EXAM: 12/19/2017 COMPARISON: 12/15/2017 HISTORY: septic emboli TECHNIQUE: Frontal and lateral views of the chest are obtained. FINDINGS: Progressive airspace infiltrates and areas of nodularity left upper lobe, right middle lobe and right lower lobe. Nodular density right upper lobe as well. Continued follow-up advised. No evidence for pneumothorax. No pleural effusion. The cardiac silhouette size is within normal limits. The osseous structures are grossly intact. IMPRESSION: 1. Progressive airspace infiltrates and areas of nodularity.
[2017-12-19 09:18] LABS: Basophils % (A) 0 %; Eosinophils # (A) 0.1 k/uL (0-0.7); Eosinophils % (A) 3 %; HCT 29.7 % (34.0-46.0); Lymphocytes # (A) 1.2 k/uL (1.0-4.8); Lymphocytes % (A) 21 %; MCH 30.3 pg (25.0-35.0); MCHC 33.5 g/dL (31.0-37.0); MCV 90.4 fL (80.0-100.0); Mean Platelet Volume 7.7; Monocytes # (A) 0.3 k/uL (0-1.0); Monocytes % (A) 6 %; Neutrophils # (A) 3.7 k/uL (1.3-7.7); Neutrophils % (A) 68 %; Platelet Count 180 k/uL (150-450); RBC 3.29 m/uL (3.80-5.40); RDW 13.1 % (11.5-15.5); WBC 5.4 k/uL (3.8-10.6)
[2017-12-19 09:21] LABS: ALT 47 U/L (9-52); AST 33 U/L (14-36); Albumin 2.6 g/dL (3.5-5.0); Alkaline Phosphatase 155 U/L (38-126); Anion Gap 8 mmol/L; Blood Urea Nitrogen 7 mg/dL (7-17); Calcium 8.2 mg/dL (8.4-10.2); Carbon Dioxide 26 mmol/L (22-30); Chloride 106 mmol/L (98-107); Glucose 107 mg/dL (74-99); Potassium 3.9 mmol/L (3.5-5.1); Sodium 140 mmol/L (137-145); Total Bilirubin 0.4 mg/dL (0.2-1.3); Total Protein 5.2 g/dL (6.3-8.2)
--- NOTE | 2017-12-19 11:13 | P.PN ---
Subjective Progress Note Date: 12/19/17 Principal diagnosis: Multifocal pneumonia This is a 22-year-old white female patient of Dr. Otto, who presented to the emergency department on 12/15/2017 with intermittent fevers, left- sided posterior back pain under her shoulder blade, she was exacerbated by deep breathing and coughing. Patient was seen earlier that day at the [facility] where she had an extensive workup. She was found to have hematuria, she has had the fever and chills since of last week. She denies any chance of . She she is coughing, but not producing any phlegm. She also had a tooth ache on , and it is her wisdom tooth on the left side. She does see a dentist, however she did not go to the dentist that day. She went to the emergency room instead. No history of chronic lung disease, patient is a current smoker, pack a day last her 3-4 days. She donates plasma on the regular basis, and her last visit to the [facility] was on Sunday of last week. Denies any sick contacts. CT of abdomen and pelvis was completed, and showed mild free fluid in the cul-de-sac, no renal stone or obstruction. His left pleural effusion, lower lobe bilateral pulmonary consolidation more so on the right side. There was a concern for septic emboli. Chest x-ray showed multiple rounded pulmonary infiltrates. Patient left the emergency room AGAINST MEDICAL ADVICE because she had no hearing officer. She returned to the emergency room on 12/16/2017, with fever and chills, and persistent left posterior chest wall pain. She was started on broad-spectrum antibiotics including Rocephin and vancomycin, and she was admitted for further management. Urinalysis showed moderate amount of blood, leuks, rare bacteria and mucus. Patient denies any burning, or pressure, she is complaining of urinary frequency. The patient is seen again today 12/18/2017 in follow-up on the selective care unit. He is awake and alert in no acute distress. She is currently maintaining good O2 saturations in the mid 90s on room air. She is currently afebrile. 4 AM temperature was 102.0. Hemodynamically stable. Blood culture reveals no growth to date. Urine culture is pending. White count 5.8. Hemoglobin 9.7. She is currently on ceftriaxone and vancomycin. He has been consulted. Transfer thoracic echocardiogram did not reveal any evidence of vegetation. Abdominal ultrasound was negative. The patient is seen again today 12/19/2017 in follow-up on the selective care unit. She remains awake and alert in no acute distress. Currently sitting up in a chair at the bedside. She denies any worsening shortness of breath, cough or congestion. No chills or night sweats. No fever in over 24 hours. She is currently on ceftriaxone and Levaquin. Unfortunately, her chest x-ray continues to show progressive multifocal pulmonary infiltrates and areas of nodularity. Unable to produce a sputum sample. The cultures remain negative. White count 5.0. Hemoglobin 10.0. Creatinine 0.45. Objective - Vital Signs Vital signs: Vital Signs Temp 97.7 F 12/19/17 08:00 Pulse 84 12/19/17 08:29 Resp 18 12/19/17 08:00 BP 119/83 12/19/17 08:00 Pulse Ox 97 12/19/17 08:17 Intake & Output 12/18/17 12/19/17 12/19/17 18:59 06:59 18:59 Intake Total 1080 1200 330 Balance 1080 1200 330 Weight 70.9 kg Intake: Intake, IV Titration 500 1200 Amount Sodium Chloride 0.9% 1, 400 1200 000 ml @ 75 mls/hr IV . [id number] SHAHID Rx#:[id number] cefTRIAXone 2,000 mg In 100 Sodium Chloride 0.9% 100 ml @ 100 mls/hr IVPB Q24HR [facility] Rx#:[id number] Oral 580 330 Other: # Voids 2 1 1 - Exam GENERAL EXAM: Alert, pleasant 22-year-old white female, comfortable in no apparent distress. Currently on room air. HEAD: Normocephalic/atraumatic. EYES: Normal reaction of pupils, equal size. Conjunctiva pink, sclera white. NOSE: Clear with pink turbinates. THROAT: No erythema or exudates. NECK: No masses, no JVD, no thyroid enlargement, no adenopathy. CHEST: No chest wall deformity. Symmetrical expansion. LUNGS: Few scattered rhonchi. Otherwise clear. CVS: Regular rate and rhythm, normal S1 and S2, no gallops, no murmurs, no rubs. Slightly tachycardic ABDOMEN: Soft, nontender. No hepatosplenomegaly, normal bowel sounds, no guarding or rigidity. EXTREMITIES: No clubbing, no edema, no cyanosis, 2+ pulses and upper and lower extremities. MUSCULOSKELETAL: Muscle strength and tone normal. SPINE: No scoliosis or deformity SKIN: No rashes CENTRAL NERVOUS SYSTEM: Alert and oriented -3. No focal deficits, tone is normal in all 4 extremities. PSYCHIATRIC: Alert and oriented -3. Appropriate affect. Intact judgment and insight. - Labs CBC & Chem 7: 12/19/17 08:42 12/19/17 08:42 Labs: Abnormal Lab Results - Last 24 Hours (Table) 12/18/17 12/18/17 12/19/17 Range/Units 06:30 16:27 00:07 RBC (3.80-5.40) m/uL Hgb (11.4-16.0) gm/dL Hct (34.0-46.0) % Potassium 3.2 L 3.2 L 3.4 L (3.5-5.1) mmol/L Creatinine (0.52-1.04) mg/dL Glucose (74-99) mg/dL Calcium (8.4-10.2) mg/dL Alkaline Phosphatase (38-126) U/L Total Protein (6.3-8.2) g/dL Albumin (3.5-5.0) g/dL 12/19/17 12/19/17 Range/Units 08:42 08:42 RBC 3.29 L (3.80-5.40) m/uL Hgb 10.0 L (11.4-16.0) gm/dL Hct 29.7 L (34.0-46.0) % Potassium (3.5-5.1) mmol/L Creatinine 0.45 L (0.52-1.04) mg/dL Glucose 107 H (74-99) mg/dL Calcium 8.2 L (8.4-10.2) mg/dL Alkaline Phosphatase 155 H (38-126) U/L Total Protein 5.2 L (6.3-8.2) g/dL Albumin 2.6 L (3.5-5.0) g/dL Microbiology - Last 24 Hours (Table) 12/16/17 14:45 Urine Culture - Final Urine,Voided Bettie albicans 12/16/17 13:51 Blood Culture - Preliminary Blood No Growth after 48 hours Assessment and Plan Assessment: Assessment: #1. Multifocal pneumonia CT angio of the chest showed numerous bilateral areas of pneumonic airspace consolidation in both lungs. No significant improvement on today's chest x-ray however the patient is clinically improved. No fever and 24 hours. Currently on Levaquin and ceftriaxone. This could also be related to multiple septic emboli, no evidence of pulmonary embolism noted. No evidence of vegetation on transthoracic echocardiogram. #2. Urinary tract infection culture with Bettie only. #3. Nicotine dependence, ongoing #4. Elevated d-dimer and a CT showed no evidence of pulmonary embolism. #5. Elevated transaminases abdominal abdominal ultrasound negative. Plan: The patient was seen and evaluated by Dr. Willett. Chest x-ray and labs reviewed. Urine Legionella antigen still pending. She is currently on ceftriaxone and Levaquin. She is improved clinically. No fever in the past 24 hours. Maintaining good O2 saturations in the 90s on room air. No significant cough or congestion. Blood culture reveals no growth to date. May need to consider bronchoscopy with BAL. We'll continue to follow. I, the cosigning physician, performed a history & physical examination of the patient. Lungs sounds with bilateral scattered rhonchi, more so on the right lung base. Maintaining good O2 saturations in the 90s on room air. I discussed the assessment and plan of care with my nurse practitioner, Gretchen Mccloud. I attest to the above note as dictated by her.
[2017-12-19] MEDS: ACETAMINOPHEN TAB 325 MG TAB PO PRN (11:33)
[2017-12-19] MEDS: LEVOFLOXACIN 750 MG TAB PO SCH (13:47)
--- NOTE | 2017-12-19 14:56 | PN ---
PROGRESS NOTE DATE OF SERVICE: 12/19/2017 REASON FOR FOLLOWUP: Pneumonia, community-acquired, possible atypical. INTERVAL HISTORY: The patient is currently afebrile. She is feeling better. Breathing has improved. She has very minimal cough that has decreased intensity, intermittent drainage. No chest pain. No nausea, no vomiting. No abdominal pain and no diarrhea. PHYSICAL EXAMINATION: Blood pressure 119/83 with a pulse of 87, temperature is 97.7, she is 97% on room air. General description is a young female, up in the room in no distress. RESPIRATORY SYSTEM: Unlabored breathing. Decreased breath sounds in the bases. No wheeze or crackle. HEART: S1, S2. Regular rate and rhythm. ABDOMEN: Soft, no tenderness. EXTREMITIES: No edema of the feet. LABS: Hemoglobin is 10 with white count 5.4, BUN of 7, creatinine 0.45. DIAGNOSTIC IMPRESSION AND PLAN: Patient in the hospital with sepsis, source is pneumonia. Initial concern for possible infective endocarditis the way CT was read; however, clinically behaving more of a multifocal pneumonia, possible Legionella or other committed pathogen. If the patient fever respond to the Levaquin than will continue on to learn with Rocephin. Continue with IV antibiotic for another 24-48 hours and if the patient continues to improve, hopefully to finish therapy with oral antibiotics. Family was present at bedside. The questions were answered. MMODL / IJN: [id number] /
--- NOTE | 2017-12-19 14:59 | P.PN ---
Subjective Progress Note Date: 12/19/17 This is a 22-year-old female with history of nicotine dependence, marijuana use, no hypertension, no diabetes, no hyperlipidemia, who presents to the hospital on this occasion with symptoms of fever as well as left-sided flank discomfort. According to the patient, symptoms started on , she presented to [facility] where she states she had several lab draws and test done, ultimately was released from there. Patient states that they told her she had a UTI. Symptoms seemed to initially start with what she thought was a toothache, she does have a wisdom tooth there which she felt was giving her some problems. She states that she used Orajel, the symptoms of pain subsided, then following that she had fever and chills and for this reason no initially went to [facility] for further evaluation. The patient also states that on Sunday of last week she donated plasma, this is the first time that she has ever done this before. She denies any IV drug abuse but does state that she uses marijuana. She does have a 3-year-old daughter. Fevers at home and at [facility] according to the patient were running in the range of 102. CTA of the chest was performed which revealed numerous bilateral areas of pneumonic air space consolidation in both lungs. These appear increased as compared with yesterday and consistent with inflammatory disease. They could also represent multiple septic emboli, no evidence of PE. EKG on presentation here showed a sinus tachycardia with nonspecific ST-T wave changes in the anterior leads. Echocardiogram with Doppler study was performed which revealed an ejection fraction of 60-65%. Ultrasound of the abdomen was performed which did not reveal significant interval change from prior exam. Blood pressure 108/ 70 with a heart rate in the low 100s, temperature 102.4 on arrival. 94% on room air. Blood cultures have been drawn and oriented pending. Urine culture is also in progress. White blood cell count 9.7, hemoglobin 12.6, platelet count 160. D-dimer 1.01. Sodium 6, potassium 3.5, BUN 9, creatinine 0.4. AST 47, ALT 79, alk phos 137. 12/19/2017 Patient was seen and examined this morning, she remains afebrile. Blood cultures are negative. We did speak with pulmonary today regarding whether or not there was a need to perform AMALIA, because of the negative blood cultures note easy is requested. Patient did have a repeat chest x-ray today which revealed a worsening in her pneumonia. Hemodynamically she stable. Objective - Vital Signs Vital signs: Vital Signs Temp 97 F L 12/19/17 12:00 Pulse 88 12/19/17 13:12 Resp 17 12/19/17 12:00 BP 134/90 12/19/17 12:00 Pulse Ox 100 12/19/17 12:00 Intake & Output 12/18/17 12/19/17 12/19/17 18:59 06:59 18:59 Intake Total 1080 1200 550 Balance 1080 1200 550 Weight 70.9 kg Intake: Intake, IV Titration 500 1200 Amount Sodium Chloride 0.9% 1, 400 1200 000 ml @ 75 mls/hr IV . [id number] SHAHID Rx#:[id number] cefTRIAXone 2,000 mg In 100 Sodium Chloride 0.9% 100 ml @ 100 mls/hr IVPB Q24HR SHAHID Rx#:[id number] Oral 580 550 Other: # Voids 2 1 2 - Exam PHYSICAL EXAMINATION: GENERAL: 22-year-old female in no acute distress at the time of my examination HEENT: Head is atraumatic, normocephalic. Pupils equal, round. Sclera anicteric. Conjunctiva are clear. Mucous membranes of the mouth are moist. Neck is supple. There is no elevated jugular venous pressure. No carotid bruit is heard. HEART EXAMINATION: Heart S1, S2 normal. No murmur or gallop heard. CHEST EXAMINATION: Lungs are clear with mild diminished air entry to the bases. ABDOMEN: Soft, nontender. Bowel sounds are heard. No organomegaly noted. EXTREMITIES: 2+ peripheral pulses with no evidence of peripheral edema and no calf tenderness noted. NEUROLOGIC patient is awake, alert and oriented X3. - Labs CBC & Chem 7: 12/19/17 08:42 12/19/17 08:42 Labs: Abnormal Lab Results - Last 24 Hours (Table) 12/16/17 12/18/17 12/19/17 Range/Units 14:45 16:27 00:07 RBC (3.80-5.40) m/uL Hgb (11.4-16.0) gm/dL Hct (34.0-46.0) % Potassium 3.2 L 3.4 L (3.5-5.1) mmol/L Creatinine (0.52-1.04) mg/dL Glucose (74-99) mg/dL Calcium (8.4-10.2) mg/dL Alkaline Phosphatase (38-126) U/L Total Protein (6.3-8.2) g/dL Albumin (3.5-5.0) g/dL Urine Legionella Ag DETECTED H (Not detected) 12/19/17 12/19/17 Range/Units 08:42 08:42 RBC 3.29 L (3.80-5.40) m/uL Hgb 10.0 L (11.4-16.0) gm/dL Hct 29.7 L (34.0-46.0) % Potassium (3.5-5.1) mmol/L Creatinine 0.45 L (0.52-1.04) mg/dL Glucose 107 H (74-99) mg/dL Calcium 8.2 L (8.4-10.2) mg/dL Alkaline Phosphatase 155 H (38-126) U/L Total Protein 5.2 L (6.3-8.2) g/dL Albumin 2.6 L (3.5-5.0) g/dL Urine Legionella Ag (Not detected) Microbiology - Last 24 Hours (Table) 12/18/17 12:35 Blood Culture - Preliminary Blood No Growth after 24 hours 12/16/17 14:45 Urine Culture - Final Urine,Voided Bettie albicans 12/16/17 13:51 Blood Culture - Preliminary Blood No Growth after 48 hours Assessment and Plan Plan: Assessment and plan: #1. Elevated fevers of up to 102 with evidence of multifocal pneumonia CT angios of the chest showed numerous bilateral areas of pneumonic airspace consolidation in both lungs. This could also be related to multiple septic emboli, no evidence of pulmonary embolism noted. Blood cultures pending. #2. Urinary tract infection #3. Nicotine dependence, ongoing #4. Elevated d-dimer, no PE on CTA of the chest #5. Elevated transaminases #6 Recent plasma donation #7 Marijuana use #8 elevated AST ALT and alk phos. Plan Echocardiogram with Doppler study was performed which revealed an ejection fraction of 60-65%. Trace to mild mitral regurg, no pericardial effusion. Blood cultures have been negative. From cardiology's perspective, at this point and time pulmonary is not requesting that a AMALIA be performed. We will follow this patient along with you now on an as-needed basis only, please don't hesitate to call if you have any questions at all. DNP note has been reviewed, I agree with a documented findings and plan of care. Patient was seen and examined.
[2017-12-19] MEDS: IBUPROFEN 400 MG TAB PO PRN (23:39)
[2017-12-20] MEDS: PANTOPRAZOLE 40 MG TABLET PO SCH (07:00)
[2017-12-20] MEDS: IPRATROPIUM-ALBUTEROL 3 ML NEB INHALATION SCH ×3 (08:41→20:51)
[2017-12-20] MEDS: cefTRIAXone 2,000 MG in SODIUM CHLORIDE 0.9% 100 ML IVPB SCH (09:16)
[2017-12-20] MEDS: SODIUM CHLORIDE 0.9% 1,000 ML IV SCH (09:17)
[2017-12-20] MEDS: ENOXAPARIN 40 MG/0.4 ML SYRINGE SQ SCH (10:32)
[2017-12-20] MEDS ORDERED: MORPHINE ORAL SOLN 10 MG/5 ML CUP PO PRN (12:07)
[2017-12-20] MEDS ORDERED: IV FLUID CONTINUATION 1,000 ML IV ONE (12:08)
--- NOTE | 2017-12-20 12:15 | P.PN ---
Subjective Progress Note Date: 12/20/17 Principal diagnosis: Multifocal pneumonia This is a 22-year-old white female patient of Dr. Otto, who presented to the emergency department on 12/15/2017 with intermittent fevers, left- sided posterior back pain under her shoulder blade, she was exacerbated by deep breathing and coughing. Patient was seen earlier that day at the [facility] where she had an extensive workup. She was found to have hematuria, she has had the fever and chills since of last week. She denies any chance of . She she is coughing, but not producing any phlegm. She also had a tooth ache on , and it is her wisdom tooth on the left side. She does see a dentist, however she did not go to the dentist that day. She went to the emergency room instead. No history of chronic lung disease, patient is a current smoker, pack a day last her 3-4 days. She donates plasma on the regular basis, and her last visit to the [facility] was on Sunday of last week. Denies any sick contacts. CT of abdomen and pelvis was completed, and showed mild free fluid in the cul-de-sac, no renal stone or obstruction. His left pleural effusion, lower lobe bilateral pulmonary consolidation more so on the right side. There was a concern for septic emboli. Chest x-ray showed multiple rounded pulmonary infiltrates. Patient left the emergency room AGAINST MEDICAL ADVICE because she had no embossograph operator. She returned to the emergency room on 12/16/2017, with fever and chills, and persistent left posterior chest wall pain. She was started on broad-spectrum antibiotics including Rocephin and vancomycin, and she was admitted for further management. Urinalysis showed moderate amount of blood, leuks, rare bacteria and mucus. Patient denies any burning, or pressure, she is complaining of urinary frequency. The patient is seen again today 12/18/2017 in follow-up on the selective care unit. He is awake and alert in no acute distress. She is currently maintaining good O2 saturations in the mid 90s on room air. She is currently afebrile. 4 AM temperature was 102.0. Hemodynamically stable. Blood culture reveals no growth to date. Urine culture is pending. White count 5.8. Hemoglobin 9.7. She is currently on ceftriaxone and vancomycin. He has been consulted. Transfer thoracic echocardiogram did not reveal any evidence of vegetation. Abdominal ultrasound was negative. The patient is seen again today 12/19/2017 in follow-up on the selective care unit. She remains awake and alert in no acute distress. Currently sitting up in a chair at the bedside. She denies any worsening shortness of breath, cough or congestion. No chills or night sweats. No fever in over 24 hours. She is currently on ceftriaxone and Levaquin. Unfortunately, her chest x-ray continues to show progressive multifocal pulmonary infiltrates and areas of nodularity. Unable to produce a sputum sample. The cultures remain negative. White count 5.0. Hemoglobin 10.0. Creatinine 0.45. On 12/20/2017 patient seen again in follow-up. She is up ambulating within the room, in no apparent distress, no fever no chills, no worsening dyspnea. Her cough has subsided. Cultures remain negative with the exception of Bettie in the urine culture. We were unable to collect a sputum sample. Yesterday's chest x-ray showed worsening multifocal pulmonary infiltrates and areas of nodularity, patient is scheduled for a bronchoscopy with bronchoalveolar lavage today with Dr. Schwartz. current antibiotic coverage includes Levaquin, Rocephin. Objective - Vital Signs Vital signs: Vital Signs Temp 97.7 F 12/20/17 08:00 Pulse 90 12/20/17 08:51 Resp 18 12/20/17 08:00 BP 133/83 12/20/17 08:00 Pulse Ox 98 12/20/17 08:00 Intake & Output 12/19/17 12/20/17 12/20/17 18:59 06:59 18:59 Intake Total 1200 2160 Balance 1200 2160 Weight 69.1 kg Intake: Intake, IV Titration 650 1200 Amount Sodium Chloride 0.9% 1, 550 1200 000 ml @ 75 mls/hr IV . [id number] SHAHID Rx#:[id number] cefTRIAXone 2,000 mg In 100 Sodium Chloride 0.9% 100 ml @ 100 mls/hr IVPB Q24HR SHAHID Rx#:[id number] Oral 550 960 Other: # Voids 2 - Exam GENERAL EXAM: Alert, pleasant 22-year-old white female, comfortable in no apparent distress. HEAD: Normocephalic/atraumatic. EYES: Normal reaction of pupils, equal size. Conjunctiva pink, sclera white. NOSE: Clear with pink turbinates. THROAT: No erythema or exudates. NECK: No masses, no JVD, no thyroid enlargement, no adenopathy. CHEST: No chest wall deformity. Symmetrical expansion. LUNGS: Diminished breath sounds over left lower base CVS: Regular rate and rhythm, normal S1 and S2, no gallops, no murmurs, no rubs. Slightly tachycardic ABDOMEN: Soft, nontender. No hepatosplenomegaly, normal bowel sounds, no guarding or rigidity. EXTREMITIES: No clubbing, no edema, no cyanosis, 2+ pulses and upper and lower extremities. MUSCULOSKELETAL: Muscle strength and tone normal. SPINE: No scoliosis or deformity SKIN: No rashes CENTRAL NERVOUS SYSTEM: Alert and oriented -3. No focal deficits, tone is normal in all 4 extremities. PSYCHIATRIC: Alert and oriented -3. Appropriate affect. Intact judgment and insight. - Labs CBC & Chem 7: 12/19/17 08:42 12/19/17 08:42 Labs: Abnormal Lab Results - Last 24 Hours (Table) 12/16/17 Range/Units 14:45 Urine Legionella Ag DETECTED H (Not detected) Microbiology - Last 24 Hours (Table) 12/16/17 13:51 Blood Culture - Preliminary Blood No Growth after 72 hours 12/18/17 12:35 Blood Culture - Preliminary Blood No Growth after 24 hours Assessment and Plan Plan: Assessment: #1. Multifocal pneumonia CT angios of the chest showed numerous bilateral areas of pneumonic airspace consolidation in both lungs. This could also be related to multiple septic emboli, no evidence of pulmonary embolism noted. No evidence of vegetation on transthoracic echocardiogram #2. Urinary tract infection #3. Nicotine dependence, ongoing #4. Elevated d-dimer #5. Elevated transaminases Plan: Continue current antibiotic coverage including Rocephin and Levaquin, patient is scheduled bronchoscopy with bronchoalveolar lavage with Dr. Schwartz today, yesterday chest x-ray showed worsening of pulmonary infiltrates bilaterally, but clinically patient is improving, no fever, no chills, no worsening shortness of breath or chest pain. No hemoptysis. We'll continue to follow and make further adjustments to therapy based on patient's clinical course. I performed a history & physical examination of the patient and discussed their management with my nurse practitioner, Yolette Roman. I reviewed the nurse practitioner's note and agree with the documented findings and plan of care. Lung sounds are measured breath sounds over left base. The findings and the impression was discussed with the patient. I attest to the documentation by the nurse practitioner. Time with Patient: Less than 30
[2017-12-20] MEDS ORDERED: PROPOFOL 10 MG/ML 20 ML VIAL IV ONE (12:24)
[2017-12-20] MEDS ORDERED: LIDOCAINE 2% INJ 20 MG/ML INTRATRACH ONE (12:31)
[2017-12-20] MEDS ORDERED: BENZOCAINE/MENTHOL LOZENG 1 EACH LOZENGE MUCOUS MEM PRN (12:46)
[2017-12-20] MEDS: methylPREDNISolone SOD SUCCI 40 MG/ML 1 ML VIAL IV SCH ×2 (13:41→18:31)
[2017-12-20] MEDS: LEVOFLOXACIN 750 MG TAB PO SCH (13:41)
--- NOTE | 2017-12-20 15:35 | XR ---
EXAMINATION TYPE: XR chest 1V portable DATE OF EXAM: 12/20/2017 COMPARISON: Chest x-ray 12/19/2017 HISTORY: Pneumonia TECHNIQUE: Single frontal view of the chest is obtained. FINDINGS: Airspace disease is present in similar distribution to prior exam, there may be some impro flo aeration in the upper lobes. No pneumothorax. Difficult to exclude right effusion. Heart size is stable. IMPRESSION: Findings compatible with pneumonia. Follow-up recommended.
[2017-12-20 16:59] LABS: Appearance,BF Cloudy; Color,BF Colorless
--- NOTE | 2017-12-20 17:15 | PN ---
PROGRESS NOTE DATE OF SERVICE: 12/20/2017. REASON FOR FOLLOWUP: Acute Legionella pneumonia. INTERVAL HISTORY: The patient is currently afebrile. She is feeling better. Breathing comfortably. She did have mild cough which is dry in nature. Denies having any chest pain. Denies any nausea, vomiting. No abdominal pain. No diarrhea. EXAMINATION: Blood pressure 128/99 with a pulse of 75, temperature 98.7, she is 100% on room air. General description is a middle-aged female up in the chair in no distress. Respiratory system: Unlabored breathing. Clear to auscultation. No wheeze or crackles. Heart: S1, S2. Regular rate and rhythm. Abdomen soft, no tenderness. LABS: Hemoglobin is 10, white count 5.4, BUN of 7, creatinine 0.45. DIAGNOSTIC IMPRESSION AND PLAN: Patient with acute Legionella pneumonia. Blood culture has been negative making it unlikely aseptic emboli or endocarditis. Patient seemed to be responding to oral Levaquin. Will continue for another 7 days. Prescription has been sent to the pharmacy with close followup. All questions have been answered. MMODL / IJN: [id number] /
--- NOTE | 2017-12-20 17:37 | P.PN ---
Subjective Progress Note Date: 12/19/17 Progress note being dictated for Dr. holguin Principal diagnosis: Septic emboli Multifocal bronchopneumonia Patient is a 22-year-old female without significant past medical history who has been feeling well until last came to the hospital with complaints of left sided back pain mainly below the left scapula. Patient was in her usual state of health until last . On night she developed left -sided back pain. Patient also had right molar tooth pain and he used oral Listerine mouthwash. One-hour lateral patient developed severe left flank pain. Patient has been having fevers on and off at home. Patient initially presented to [facility] on Sunday and was sent home with possible acute viral syndrome. Next today Patient came [facility] on Sunday. Patient had CT abdomen and pelvis and chest x-ray at the time. Chest x-ray showed multiple septic emboli/metastatic lesions and urinary tract infection. Patient left AMA and came back today with complaints of difficulty breathing fever and left upper back pain. Denied any cough or sputum production. No nausea vomiting or diarrhea. CT of the abdomen pelvis showed mild fluid in the cul-de-sac. left pleural effusion. Bilateral pulmonary consolidation more on the left side. This is likely bronchopneumonia. Septic emboli and mental status is a consideration. CT of the abdomen pelvis showed multiple areas of pneumonic airspace consolidation both lungs. These appear to be increased compared to yesterday and is consistent with an estimated disease. This could be multiple septic emboli. WBC 9.7 D-dimer 1.01 UA is cloudy with leukocyte esterase moderate and WBC greater than 31 Patient denied any history of IV drug abuse. 12/17/2017 Patient denied any complaints of chest pain. Shortness of breath is stable. Otherwise patient is still febrile with T-max 102F. Patient is being continued on antibiotics in the form of ceftriaxone and vancomycin. Blood cultures and urine cultures show no growth so far. 2-D Echocardiogram with Doppler study was performed which revealed an ejection fraction of 60-65%. Trace to mild mitral regurg, no pericardial effusion. LFTs slightly improved. No complaints of nausea vomiting or abdominal pain. Patient is being followed by ID, pulmonary and cardiology. All other review of systems negative except the above Active Medications Generic Name Dose Route Start Last Admin Trade Name Freq PRN Reason Stop Dose Admin Acetaminophen 650 mg 12/16/17 16:05 12/17/17 09:55 Tylenol Tab PO 650 mg Q6HR PRN Administration Mild Pain or Fever > 100.5 Albuterol/Ipratropium 3 ml 12/17/17 13:00 12/17/17 20:57 Duoneb 0.5 Mg-3 Mg/3 Ml Soln INHALATION 3 ml RT-TID [facility] Administration Enoxaparin Sodium 40 mg 12/17/17 11:30 12/17/17 12:46 Lovenox SQ 40 mg DAILY [facility] Administration Guaifenesin 200 mg 12/17/17 22:01 Robitussin PO Q6H PRN Cough Sodium Chloride 1,000 mls @ 100 mls/hr 12/16/17 13:45 12/17/17 11:22 Saline 0.9% IV Not Given .Q10H SHAHID Vancomycin HCl 1,250 mg/ 250 mls @ 125 mls/hr 12/17/17 00:00 12/17/17 15:12 Sodium Chloride IVPB 125 mls/hr Q8HR [facility] Administration Ceftriaxone Sodium 2,000 mg/ 100 mls @ 100 mls/hr 12/17/17 09:00 12/17/17 08: 44 Sodium Chloride IVPB 100 mls/hr Q24HR [facility] Administration Ibuprofen 400 mg 12/16/17 16:05 12/17/17 18:02 Motrin PO 400 mg Q6HR PRN Administration Mild Pain or Fever > 100.5 Ketorolac Tromethamine 30 mg 12/16/17 16:05 12/16/17 20:44 Toradol IVP 12/21/17 16:06 30 mg Q6HR PRN Administration Moderate Pain Morphine Sulfate 4 mg 12/16/17 16:05 Morphine Sulfate (Inj) IV Q4HR PRN Severe Pain Naloxone HCl 0.2 mg 12/16/17 16:05 Narcan IV Q2M PRN Opioid Reversal Ondansetron HCl 4 mg 12/16/17 16:05 12/17/17 09:55 Zofran IVP 4 mg Q8HR PRN Administration Nausea And Vomiting Pantoprazole Sodium 40 mg 12/18/17 07:30 Protonix PO AC-BRKFST [facility] 12/18/2017 feeling better today. receiving potassium and magnesium supplements. T-max 102, currently afebrile. No significant cough. Maintained on IV antibiotics of Levaquin and Rocephin. Urine culture pending, preliminary blood culture negative. AMALIA remains on hold currently. Echo did not report vegetation. Abdominal ultrasound reporting no interval change. Maintaining O2 sats in the mid 90s on room air. Denies chest pain, palpitations or increasing shortness of breath. 12/19/2017 breathing improving. Nonproductive cough. Chest x-ray reporting worsening with progressive airspace infiltrates and areas of nodularity left upper lobe, right middle lobe and right lower lobe with nodular density right upper lobe as well. T-max 100.2. Cultures negative. Maintained on Rocephin, Levaquin. Denies chest pain, palpitations or increasing shortness of breath. Objective - Vital Signs Vital signs: Vital Signs Temp 98 F 12/19/17 16:00 Pulse 88 12/19/17 21:13 Resp 17 12/19/17 16:00 BP 119/83 12/19/17 16:00 Pulse Ox 98 12/19/17 20:59 Intake & Output 12/19/17 12/19/17 12/20/17 06:59 18:59 06:59 Intake Total 1200 1200 Balance 1200 1200 Weight 70.9 kg Intake: Intake, IV Titration 1200 650 Amount Sodium Chloride 0.9% 1, 1200 550 000 ml @ 75 mls/hr IV . [id number] SHAHID Rx#:[id number] cefTRIAXone 2,000 mg In 100 Sodium Chloride 0.9% 100 ml @ 100 mls/hr IVPB Q24HR SHAHID Rx#:[id number] Oral 550 Other: # Voids 1 2 - Exam PHYSICAL EXAMINATION: Patient is sitting in the bed comfortably, no acute distress, awake alert and oriented.. HEENT: Normocephalic. Neck is supple. Pupils reactive. Poor dentition. Conjunctivae pink, Nostrils clear. Oral cavity is moist. Neck reveals no JVD, carotid bruits, or thyromegaly. CHEST EXAMINATION: Trachea is central. Symmetrical expansion. Right basilar bronchial sounds. Scattered rhonchi, No wheezing. Nonlabored breathing. No congestion. CARDIAC: Normal S1, S2 with no gallops. No murmurs . Mild tachycardia ABDOMEN: Soft. Bowel sounds normal. No organomegaly. No abdominal bruits. Extremities: reveal no edema. No clubbing or cyanosis Neurologically awake, alert, oriented x3 with well-coordinated movements. No focal deficits noted Skin: No rash or skin lesions. Psychiatric: Coperative. Nonsuicidal Musculoskeletal: No joint swelling or deformity. Normal range of motion. - Labs CBC & Chem 7: 12/19/17 08:42 12/19/17 08:42 Labs: Abnormal Lab Results - Last 24 Hours (Table) 12/16/17 12/19/17 12/19/17 Range/Units 14:45 00:07 08:42 RBC (3.80-5.40) m/uL Hgb (11.4-16.0) gm/dL Hct (34.0-46.0) % Potassium 3.4 L (3.5-5.1) mmol/L Creatinine 0.45 L (0.52-1.04) mg/dL Glucose 107 H (74-99) mg/dL Calcium 8.2 L (8.4-10.2) mg/dL Alkaline Phosphatase 155 H (38-126) U/L Total Protein 5.2 L (6.3-8.2) g/dL Albumin 2.6 L (3.5-5.0) g/dL Urine Legionella Ag DETECTED H (Not detected) 12/19/17 Range/Units 08:42 RBC 3.29 L (3.80-5.40) m/uL Hgb 10.0 L (11.4-16.0) gm/dL Hct 29.7 L (34.0-46.0) % Potassium (3.5-5.1) mmol/L Creatinine (0.52-1.04) mg/dL Glucose (74-99) mg/dL Calcium (8.4-10.2) mg/dL Alkaline Phosphatase (38-126) U/L Total Protein (6.3-8.2) g/dL Albumin (3.5-5.0) g/dL Urine Legionella Ag (Not detected) Microbiology - Last 24 Hours (Table) 12/16/17 13:51 Blood Culture - Preliminary Blood No Growth after 72 hours 12/18/17 12:35 Blood Culture - Preliminary Blood No Growth after 24 hours 12/16/17 14:45 Urine Culture - Final Urine,Voided Bettie albicans Assessment and Plan Assessment: Multifocal pneumonia.Multiple septic emboli in the lung. Suspected infective endocarditis with poor dentition and possible tooth infection-no evidence of vegetation on echo. Multifocal bronchopneumonia. Patient did not have any respiratory symptoms on admission. Acute urinary tract infection with Bettie albicans Elevated liver enzymes, abdominal ultrasound negative No history of IVDU Hypokalemia, improved with supplementation Hypomagnesemia, improved with supplementation Plan: Continue on current medication regime ,monitoring and symptomatic treatment. Urine Legionella antigen pending. Maintain IV fluid hydration, IV antibiotics, Rocephin and Levaquin as per infectious disease. Preliminary blood cultures negative. Pulmonary discussing bronchoscopy for tomorrow. Increase ambulation as tolerated. Smoking cessation readdressed. Follow closely with multiple consults. Further recommendations to follow The impression and plan of care has been dictated as directed. : I performed a history and examination of this patient, discussed the same with the dictator. I agree with the dictator's note ,documented as a scribe. Any additional findings or plans will be noted.
--- NOTE | 2017-12-20 17:46 | P.PN ---
Subjective Progress Note Date: 12/20/17 Progress note being dictated for Dr. holguin Principal diagnosis: Septic emboli Multifocal bronchopneumonia Patient is a 22-year-old female without significant past medical history who has been feeling well until last came to the hospital with complaints of left sided back pain mainly below the left scapula. Patient was in her usual state of health until last . On night she developed left -sided back pain. Patient also had right molar tooth pain and he used oral Listerine mouthwash. One-hour lateral patient developed severe left flank pain. Patient has been having fevers on and off at home. Patient initially presented to [facility] on Sunday and was sent home with possible acute viral syndrome. Next today Patient came to [facility] on Sunday. Patient had CT abdomen and pelvis and chest x-ray at the time. Chest x-ray showed multiple septic emboli/metastatic lesions and urinary tract infection. Patient left AMA and came back today with complaints of difficulty breathing fever and left upper back pain. Denied any cough or sputum production. No nausea vomiting or diarrhea. CT of the abdomen pelvis showed mild fluid in the cul-de-sac. left pleural effusion. Bilateral pulmonary consolidation more on the left side. This is likely bronchopneumonia. Septic emboli and mental status is a consideration. CT of the abdomen pelvis showed multiple areas of pneumonic airspace consolidation both lungs. These appear to be increased compared to yesterday and is consistent with an estimated disease. This could be multiple septic emboli. WBC 9.7 D-dimer 1.01 UA is cloudy with leukocyte esterase moderate and WBC greater than 31 Patient denied any history of IV drug abuse. 12/17/2017 Patient denied any complaints of chest pain. Shortness of breath is stable. Otherwise patient is still febrile with T-max 102F. Patient is being continued on antibiotics in the form of ceftriaxone and vancomycin. Blood cultures and urine cultures show no growth so far. 2-D Echocardiogram with Doppler study was performed which revealed an ejection fraction of 60-65%. Trace to mild mitral regurg, no pericardial effusion. LFTs slightly improved. No complaints of nausea vomiting or abdominal pain. Patient is being followed by ID, pulmonary and cardiology. All other review of systems negative except the above Active Medications Generic Name Dose Route Start Last Admin Trade Name Freq PRN Reason Stop Dose Admin Acetaminophen 650 mg 12/16/17 16:05 12/17/17 09:55 Tylenol Tab PO 650 mg Q6HR PRN Administration Mild Pain or Fever > 100.5 Albuterol/Ipratropium 3 ml 12/17/17 13:00 12/17/17 20:57 Duoneb 0.5 Mg-3 Mg/3 Ml Soln INHALATION 3 ml RT-TID [facility] Administration Enoxaparin Sodium 40 mg 12/17/17 11:30 12/17/17 12:46 Lovenox SQ 40 mg DAILY [facility] Administration Guaifenesin 200 mg 12/17/17 22:01 Robitussin PO Q6H PRN Cough Sodium Chloride 1,000 mls @ 100 mls/hr 12/16/17 13:45 12/17/17 11:22 Saline 0.9% IV Not Given .Q10H [facility] Vancomycin HCl 1,250 mg/ 250 mls @ 125 mls/hr 12/17/17 00:00 12/17/17 15:12 Sodium Chloride IVPB 125 mls/hr Q8HR [facility] Administration Ceftriaxone Sodium 2,000 mg/ 100 mls @ 100 mls/hr 12/17/17 09:00 12/17/17 08: 44 Sodium Chloride IVPB 100 mls/hr Q24HR [facility] Administration Ibuprofen 400 mg 12/16/17 16:05 12/17/17 18:02 Motrin PO 400 mg Q6HR PRN Administration Mild Pain or Fever > 100.5 Ketorolac Tromethamine 30 mg 12/16/17 16:05 12/16/17 20:44 Toradol IVP 12/21/17 16:06 30 mg Q6HR PRN Administration Moderate Pain Morphine Sulfate 4 mg 12/16/17 16:05 Morphine Sulfate (Inj) IV Q4HR PRN Severe Pain Naloxone HCl 0.2 mg 12/16/17 16:05 Narcan IV Q2M PRN Opioid Reversal Ondansetron HCl 4 mg 12/16/17 16:05 12/17/17 09:55 Zofran IVP 4 mg Q8HR PRN Administration Nausea And Vomiting Pantoprazole Sodium 40 mg 12/18/17 07:30 Protonix PO AC-BRKFST [facility] 12/18/2017 feeling better today. receiving potassium and magnesium supplements. T-max 102, currently afebrile. No significant cough. Maintained on IV antibiotics of Levaquin and Rocephin. Urine culture pending, preliminary blood culture negative. AMALIA remains on hold currently. Echo did not report vegetation. Abdominal ultrasound reporting no interval change. Maintaining O2 sats in the mid 90s on room air. Denies chest pain, palpitations or increasing shortness of breath. 12/19/2017 breathing improving. Nonproductive cough. Chest x-ray reporting worsening with progressive airspace infiltrates and areas of nodularity left upper lobe, right middle lobe and right lower lobe with nodular density right upper lobe as well. T-max 100.2. Cultures negative. Maintained on Rocephin, Levaquin. Denies chest pain, palpitations or increasing shortness of breath. 12/20/2017 urine Legionella antigen positive. Underwent bronchoscopy this morning, tolerated procedure well. Chest x-ray reporting some improvement in upper lobes, compatible with pneumonia possible right effusion. Afebrile, blood cultures negative. Objective - Vital Signs Vital signs: Vital Signs Temp 98.7 F 12/20/17 12:00 Pulse 90 12/20/17 13:26 Resp 16 12/20/17 12:00 BP 128/99 12/20/17 12:00 Pulse Ox 100 12/20/17 12:00 Intake & Output 12/19/17 12/20/17 12/20/17 18:59 06:59 18:59 Intake Total 1200 2160 300 Balance 1200 2160 300 Weight 69.1 kg Intake: IV 300 Intake, IV Titration 650 1200 Amount Sodium Chloride 0.9% 1, 550 1200 000 ml @ 75 mls/hr IV . [id number] [facility] Rx#:[id number] cefTRIAXone 2,000 mg In 100 Sodium Chloride 0.9% 100 ml @ 100 mls/hr IVPB Q24HR [facility] Rx#:[id number] Oral 550 960 Other: # Voids 2 1 - Exam PHYSICAL EXAMINATION: Patient is sitting in the bed comfortably, no acute distress, awake alert and oriented.. HEENT: Normocephalic. Neck is supple. Pupils reactive. Poor dentition. Conjunctivae pink, Nostrils clear. Oral cavity is moist. Neck reveals no JVD, carotid bruits, or thyromegaly. CHEST EXAMINATION: Trachea is central. Symmetrical expansion. Right basilar bronchial sounds. Scattered rhonchi, No wheezing. Nonlabored breathing. CARDIAC: Normal S1, S2 with no gallops. No murmurs . ABDOMEN: Soft. Bowel sounds normal. No organomegaly. No abdominal bruits. Extremities: reveal no edema. No clubbing or cyanosis Neurologically awake, alert, oriented x3 with well-coordinated movements. No focal deficits noted Skin: No rash or skin lesions. Psychiatric: Coperative. Nonsuicidal Musculoskeletal: No joint swelling or deformity. Normal range of motion. - Labs CBC & Chem 7: 12/19/17 08:42 12/19/17 08:42 Labs: Microbiology - Last 24 Hours (Table) 12/16/17 13:51 Blood Culture - Preliminary Blood No Growth after 96 hours 12/18/17 12:35 Blood Culture - Preliminary Blood No Growth after 48 hours Assessment and Plan Assessment: Acute Legionella pneumonia.doubt Multiple septic emboli in the lung or infective endocarditis, related to blood cultures have been negative.no evidence of vegetation on echo. Multifocal bronchopneumonia. Patient did not have any respiratory symptoms on admission. Status post bronchoscopy Acute urinary tract infection with Bettie albicans Elevated liver enzymes, abdominal ultrasound negative No history of IVDU Hypokalemia, improved with supplementation Hypomagnesemia, improved with supplementation Plan: Continue on current medication regime ,monitoring and symptomatic treatment. Bronchoscopy cultures/path. pending. Discharge planning in progress pending pulmonary clearance. Antibiotics as per infectious disease. Further recommendations to follow . The impression and plan of care has been dictated as directed. : I performed a history and examination of this patient, discussed the same with the dictator. I agree with the dictator's note ,documented as a scribe. Any additional findings or plans will be noted.
[2017-12-20 22:18] LABS: Nucleated Cells, Body Fluid 119 /uL; RBC, Body Fluid 191 /uL
[2017-12-20 22:20] LABS: Mononuclear WBC,Body Fluid 10 %; Polynuclear WBC,Body Fluid 90 %; Total Cells Counted,Body Fluid 100
--- NOTE | 2017-12-20 23:32 | OP ---
OPERATIVE REPORT PROCEDURE: Bronchoscopy and bronchoalveolar lavage of the right lower lobe and left upper lobe. PREOPERATIVE DIAGNOSIS: Multilobar pneumonia. POSTOPERATIVE DIAGNOSIS: Multilobar pneumonia. ANESTHESIA USED: IV conscious sedation. DESCRIPTION OF PROCEDURE: The patient was prepared according to the protocol. Oxygen was applied via nasal cannula. The patient was placed in supine position and we monitored her oxygen saturation continuously. Blood pressure was intermittently monitored and cardiac rhythm was monitored. After adequate IV conscious sedation, a few mL of lidocaine were instilled into the right naris, and the bronchoscope was advanced down to the area of the vocal cords. The vocal cords were noted to be patent, and no evidence of any pathology was noted over the vocal cords. Lidocaine was applied over the vocal cords and the bronchoscope was advanced further down to the trachea. Thorough examination was done of trachea, trista, right upper lobe, right middle lobe, right lower lobe, left upper lobe, lingula and left lower lobe. There was no evidence of any endobronchial abnormality whatsoever. There was no evidence of purulent secretions. Then the bronchoscope was wedged into the right lower lobe bronchus, and lavage of the right lower lobe was done. Again no evidence of any purulent material noted. Then the bronchoscope was moved up to the left upper lobe and another lavage was done from the left upper lobe in addition to the lavage from the right lower lobe. No evidence of any purulence. No evidence of any bleeding. The procedure was well tolerated. The fluid obtained from the right lower lobe and left upper lobe was sent for different diagnostic studies. MMODL / IJN: [id number] /
[2017-12-21] MEDS: SODIUM CHLORIDE 0.9% 1,000 ML IV SCH ×2 (00:11→00:44)
[2017-12-21] MEDS: TEMAZEPAM 15 MG CAP PO PRN (00:32)
[2017-12-21] MEDS: KETOROLAC 30 MG/ML 1 ML VIAL IVP PRN (00:32)
[2017-12-21] MEDS: methylPREDNISolone SOD SUCCI 40 MG/ML 1 ML VIAL IV SCH ×2 (00:43→06:37)
[2017-12-21 06:08] LABS: Basophils % (A) 0 %; Eosinophils % (A) 0 %; HCT 32.6 % (34.0-46.0); HGB 10.6 gm/dL (11.4-16.0); Lymphocytes # (A) 0.9 k/uL (1.0-4.8); Lymphocytes % (A) 8 %; MCH 29.5 pg (25.0-35.0); MCHC 32.6 g/dL (31.0-37.0); MCV 90.6 fL (80.0-100.0); Mean Platelet Volume 7.3; Monocytes # (A) 0.2 k/uL (0-1.0); Monocytes % (A) 2 %; Neutrophils # (A) 9.4 k/uL (1.3-7.7); Neutrophils % (A) 89 %; Platelet Count 303 k/uL (150-450); RDW 13.4 % (11.5-15.5); WBC 10.6 k/uL (3.8-10.6)
[2017-12-21 06:31] LABS: Anion Gap 8 mmol/L; Blood Urea Nitrogen 13 mg/dL (7-17); Calcium 8.6 mg/dL (8.4-10.2); Carbon Dioxide 26 mmol/L (22-30); Chloride 103 mmol/L (98-107); Glucose 216 mg/dL (74-99); Potassium 4.5 mmol/L (3.5-5.1); Sodium 137 mmol/L (137-145)
[2017-12-21] MEDS: PANTOPRAZOLE 40 MG TABLET PO SCH (06:38)
[2017-12-21 06:50] VITALS: RESP 19
[2017-12-21] MEDS: IPRATROPIUM-ALBUTEROL 3 ML NEB INHALATION SCH (08:18)
[2017-12-21] MEDS: ENOXAPARIN 40 MG/0.4 ML SYRINGE SQ SCH (08:18)
--- NOTE | 2017-12-21 09:31 | XR ---
EXAMINATION TYPE: XR chest 2V DATE OF EXAM: 12/21/2017 COMPARISON: 12/20/2017 INDICATION: Pneumonia, post bronchoscopy TECHNIQUE: Frontal and lateral views of the chest are obtained. FINDINGS: The heart size is normal. The pulmonary vasculature is normal. Right lower lobe infiltrate is present. Mild left upper lobe infiltrate is present.. IMPRESSION: 1. Bilateral lung infiltrates. 2. No pneumothorax post bronchoscopy.
[2017-12-21] MEDS: LEVOFLOXACIN 750 MG TAB PO SCH (11:34)
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
[2017-12-21 11:51] VITALS: BP 133/89; PULSE 98; TEMP 97.7
--- NOTE | 2017-12-21 12:55 | PN ---
PROGRESS NOTE DATE OF SERVICE: 12/21/2017 REASON FOR FOLLOWUP: Acute Legionella pneumonia. INTERVAL HISTORY: The patient is seen on rounds this morning. The patient has been afebrile. She is breathing much more comfortably. Denies significant chest pain. Very minimal cough. No nausea, no vomiting. No abdominal pain and no diarrhea. PHYSICAL EXAMINATION: Blood pressure 133/89 with a pulse of 80, temperature 97.7, she is 97% on room air. General description is a middle-aged female, up in the chair in no distress. RESPIRATORY SYSTEM: Unlabored breathing, clear to auscultation. No wheeze or crackle. HEART: S1, S2. Regular rate and rhythm. ABDOMEN: Soft, no tenderness. LABS: Hemoglobin is 10.7, white count of 10.7, BUN of 13, creatinine 0.42. DIAGNOSTIC IMPRESSION AND PLAN: Patient with acute Legionella pneumonia, multifocal. Patient has shown clinical improvement on Levaquin. Will continue for another week to finish a course of therapy with outpatient followup. Prescription was sent to the pharmacy yesterday. Continue supportive care. MMODL / IJN: [id number] /
--- NOTE | 2017-12-21 19:13 | P.DS ---
Providers Date of admission: 12/16/17 16:05 Expected date of discharge: 12/21/17 Attending physician: Yan Zhang Consults: 12/16/17 16:03 Consult Physician Urgent Consulting Provider: Og Lucia Consult Reason/Comments: Possible septic emboli Do you want consulting provider notified?: Yes 12/16/17 16:05 Consult Physician Stat Consulting Provider: Yovany Arnold Consult Reason/Comments: Septic Emboli Do you want consulting provider notified?: Yes Consult Physician Stat Consulting Provider: Emmanuel Quinonez Consult Reason/Comments: Maybe AMALIA, Septic Emboli Do you want consulting provider notified?: Yes Primary care physician: Fam [facility] Course: Final Diagnoses: Acute Legionella pneumonia.doubt Multiple septic emboli in the lung or infective endocarditis, related to blood cultures have been negative.no evidence of vegetation on echo. Multifocal bronchopneumonia. Patient did not have any respiratory symptoms on admission. Status post bronchoscopy Acute urinary tract infection with Bettie albicans Elevated liver enzymes, abdominal ultrasound negative No history of IVDU Hypokalemia, improved with supplementation Hypomagnesemia, improved with supplementation Hospital course: Patient is a 22-year-old female without significant past medical history who has been feeling well until last came to the hospital with complaints of left sided back pain mainly below the left scapula. Patient was in her usual state of health until last . On night she developed left-sided back pain. Patient also had right molar tooth pain and he used oral Listerine mouthwash. One-hour lateral patient developed severe left flank pain. Patient has been having fevers on and off at home. Patient initially presented to [facility] on Sunday and was sent home with possible acute viral syndrome. Next today Patient came to [facility] on Hospital on Sunday. Patient had CT abdomen and pelvis and chest x-ray at the time. Chest x-ray showed multiple septic emboli/metastatic lesions and urinary tract infection. Patient left AMA and came back today with complaints of difficulty breathing fever and left upper back pain. Denied any cough or sputum production. No nausea vomiting or diarrhea. CT of the abdomen pelvis showed mild fluid in the cul-de-sac. left pleural effusion. Bilateral pulmonary consolidation more on the left side. This is likely bronchopneumonia. Septic emboli and mental status is a consideration. CT of the abdomen pelvis showed multiple areas of pneumonic airspace consolidation both lungs. These appear to be increased compared to yesterday and is consistent with an estimated disease. This could be multiple septic emboli. WBC 9.7 D-dimer 1.01 UA is cloudy with leukocyte esterase moderate and WBC greater than 31 Patient denied any history of IV drug abuse. 2-D Echocardiogram with Doppler study was performed which revealed an ejection fraction of 60-65%. Trace to mild mitral regurg, no pericardial effusion, no vegetation.Patient is being followed by ID, pulmonary and cardiology. Status post bronchoscopy, cultures/pathology pending. Blood cultures negative. Maintained on IV antibiotics. Significant clinical improvement. Cleared by all consults for discharge. Patient is being discharged home in a stable condition with guarded prognosis. EXAMINATION: Patient is sitting in the bed comfortably, no acute distress, awake alert and oriented.. CHEST EXAMINATION: Trachea is central. Symmetrical expansion. Right basilar bronchial sounds. No wheezing. Nonlabored breathing. CARDIAC: Normal S1, S2 with no gallops. No murmurs . ABDOMEN: Soft. Bowel sounds normal. No organomegaly. No abdominal bruits. Neurologically No focal deficits noted The impression and plan of care has been dictated as directed. : I performed a history and examination of this patient, discussed the same with the dictator. I agree with the dictator's note ,documented as a scribe. Any additional findings or plans will be noted. Time taken 35 minutes Patient Condition at Discharge: Stable Plan - Discharge Summary New Discharge Prescriptions: New Levofloxacin [Levaquin] 750 mg PO DAILY #7 tab guaiFENesin SYRUP 100MG/5ML [Robitussin] 200 mg PO Q6H PRN cup PRN Reason: Cough Omeprazole 20 mg PO BID #30 tablet. predniSONE 10 mg PO DIRECTED #30 tab Albuterol Sulfate [Proair Hfa] 2 puff INHALATION Q6HR PRN #1 inhaler PRN Reason: Shortness Of Breath Discontinued Amoxic-Pot Clav 875-125Mg [Augmentin 875-125] 1 tab PO Q12HR #20 tablet Clindamycin [Cleocin] 450 mg PO TID 7 Days capsule Discharge Medication List Levofloxacin [Levaquin] 750 mg PO DAILY #7 tab 12/20/17 [Rx] Albuterol Sulfate [Proair Hfa] 2 puff INHALATION Q6HR PRN #1 inhaler 12/21/17 [ Rx] Omeprazole 20 mg PO BID #30 tablet.dr 12/21/17 [Rx] guaiFENesin SYRUP 100MG/5ML [Robitussin] 200 mg PO Q6H PRN cup 12/21/17 [Rx] predniSONE 10 mg PO DIRECTED #30 tab 12/21/17 [Rx] Follow up Appointment(s)/Referral(s): Silvestre Willett MD [STAFF PHYSICIAN] - 01/04/18 1:30 pm (Sunday) Debbie Otto MD [Primary Care Provider] - 12/24/17 1:00 pm (SUNDAY) Og Lucia MD [STAFF PHYSICIAN] - 12/31/17 11:15 am (Sunday) Ambulatory/Diagnostic Orders: Complete Blood Count w/diff [LAB.AMB] Time Frame: 3 Days, Location: None Selected Patient Instructions/Handouts: How to Stop Smoking (DC), Urinary Tract Infection in Women (DC), Hypokalemia (DC), Pneumonia (DC) Activity/Diet/Wound Care/Special Instructions: no smoking Discharge Disposition: HOME SELF-CARE
== END 2017-12-21 11:56 | disposition home or self-care (01) | DRG 871 ==
LOC: EC 13:31 → 3SCARD 16:05
PROVIDERS: ADMIT Hospitalist; ATTEND Hospitalist
PROC: 0B9F8ZX Drainage of Right Lower Lung Lobe, Via Natural or Artificial Opening Endoscopic, Diagnostic (ICD-10-PCS; principal; 2017-12-16)
PROC: 0B9G8ZX Drainage of Left Upper Lung Lobe, Via Natural or Artificial Opening Endoscopic, Diagnostic (ICD-10-PCS; 2017-12-16)
DX: A41.89 Other specified sepsis (principal); A48.1 Legionnaires' disease; B37.49 Other urogenital candidiasis; E87.6 Hypokalemia; E83.42 Hypomagnesemia; K08.89 Other specified disorders of teeth and supporting structures; R79.1 Abnormal coagulation profile; R74.8 Abnormal levels of other serum enzymes; F17.210 Nicotine dependence, cigarettes, uncomplicated; Z79.2 Long term (current) use of antibiotics
CPT/HCPCS: 31624; 36415; 71045; 71046; 71275; 76705; 80048; 80053; 80202; 81001; 83605; 83735; 84132; 84703; 85025; 85379; 85610; 85730; 87040; 87070; 87086; 87102; 87116; 87205; 87206; 87252; 87449; 87496; 87498; 87502; 87529; 87541; 87634; 87798; 89050; 93005; 93306; 94640; 94760; 96365; 96366; 96367; 99285

== ENCOUNTER 2018-01-28 11:27 | Emergency (ER) | payer OTHER ==
[2018-01-28 11:35] VITALS: RESP 18; TEMP 98
--- NOTE | 2018-01-28 12:07 | ED ---
General Adult HPI - General Chief complaint: Abdominal Pain Stated complaint: abdominal pain Time Seen by Provider: 01/28/18 11:36 Source: patient Mode of arrival: ambulatory Limitations: no limitations - History of Present Illness Initial comments: 22-year-old female presents to the emergency department for a chief complaint of pelvic cramping and bleeding 2 days. Patient states this cramping started when the bleeding started. Patient states her last period was in December sometime which she is unsure when. Patient states she may be . She denies dysuria or urinary frequency. Patient has no other complaints at this time including shortness of breath, chest pain, abdominal pain, nausea or vomiting, headache, or visual changes. - Related Data Home Medications Medication Instructions Recorded Confirmed No Known Home Medications 01/28/18 01/28/18 Allergies Allergy/AdvReac Type Severity Reaction Status Date / Time No Known Allergies Allergy Verified 01/28/18 11:43 Review of Systems ROS Statement: Those systems with pertinent positive or pertinent negative responses have been documented in the HPI. ROS Other: All systems not noted in ROS Statement are negative. Past Medical History Past Medical History: No Reported History Additional Past Medical History / Comment(s): Obstetric history: This is her first and she has had care with Dr Garnica since 8 weeks. A+ , abs neg, Rub Imm, RPR NR, Hep B neg. Normal 1hr GTT, GBS neg. Normal anatomy US. History of Any Multi-Drug Resistant Organisms: None Reported Past Surgical History: Cholecystectomy Past Anesthesia/Blood Transfusion Reactions: No Reported Reaction Past Psychological History: No Psychological Hx Reported Smoking Status: Current every day smoker Past Alcohol Use History: None Reported Past Drug Use History: None Reported - Past Family History Father Family Medical History: No Reported History General Exam Limitations: no limitations General appearance: alert, in no apparent distress Head exam: Present: atraumatic, normocephalic, normal inspection Eye exam: Present: normal appearance, PERRL, EOMI. Absent: scleral icterus, conjunctival injection, periorbital swelling ENT exam: Present: normal exam, mucous membranes moist Neck exam: Present: normal inspection, full ROM. Absent: tenderness, meningismus, lymphadenopathy Respiratory exam: Present: normal lung sounds bilaterally. Absent: respiratory distress, wheezes, rales, rhonchi, stridor Cardiovascular Exam: Present: regular rate, normal rhythm, normal heart sounds. Absent: systolic murmur, diastolic murmur, rubs, gallop, clicks GI/Abdominal exam: Present: soft, tenderness (minimal suprapubic, LLQ and RLQ tenderness without rebound or gaurding, worse in LLQ), normal bowel sounds. Absent: distended, guarding, rebound, rigid Neurological exam: Present: alert, oriented X3, CN II-XII intact Psychiatric exam: Present: normal affect, normal mood Course Vital Signs 01/28/18 11:32 Temperature 98 F Pulse Rate 110 H Respiratory 18 Rate Blood Pressure 111/72 O2 Sat by Pulse 100 Oximetry Medical Decision Making - Medical Decision Making 22-year-old female presents for vaginal spotting 2 days and pelvic cramping. CBC and CMP are unremarkable. Beta hCG 1201. Urine cultured There is a possible gestational sac visualized on ultrasound which may be early intrauterine . Yolk sac or pole not identified. Patient was offered pelvic, refuses. Dr. Molina spoke with Dr. Padilla as patient sees Dr. Sorto. Recommends repeat beta hCG in 2 days and follow-up at their office. Patient was given this information. All questions answered. - Lab Data Result diagrams: 01/28/18 13:00 01/28/18 13:00 Lab Results 01/28/18 01/28/18 01/28/18 Range/Units 12:52 12:52 13:00 WBC (3.8-10.6) k/uL RBC (3.80-5.40) m/uL Hgb (11.4-16.0) gm/dL Hct (34.0-46.0) % MCV (80.0-100.0) fL MCH (25.0-35.0) pg MCHC (31.0-37.0) g/dL RDW (11.5-15.5) % Plt Count (150-450) k/uL Neutrophils % % Lymphocytes % % Monocytes % % Eosinophils % % Basophils % % Neutrophils # (1.3-7.7) k/uL Lymphocytes # (1.0-4.8) k/uL Monocytes # (0-1.0) k/uL Eosinophils # (0-0.7) k/uL Basophils # (0-0.2) k/uL Sodium 139 (137-145) mmol/L Potassium 4.1 (3.5-5.1) mmol/L Chloride 108 H (98-107) mmol/L Carbon Dioxide 25 (22-30) mmol/L Anion Gap 6 mmol/L BUN 13 (7-17) mg/dL Creatinine 0.57 (0.52-1.04) mg/dL Est GFR (CKD-EPI)AfAm >90 (>60 ml/min/1.73 sqM) Est GFR (CKD-EPI)NonAf >90 (>60 ml/min/1.73 sqM) Glucose 84 (74-99) mg/dL Calcium 9.3 (8.4-10.2) mg/dL Total Bilirubin 0.4 (0.2-1.3) mg/dL AST 20 (14-36) U/L ALT 18 (9-52) U/L Alkaline Phosphatase 40 (38-126) U/L Total Protein 6.6 (6.3-8.2) g/dL Albumin 4.0 (3.5-5.0) g/dL Amylase 40 (30-110) U/L Lipase 66 (23-300) U/L HCG, Quant 1201.1 mIU/mL Urine Color Yellow Urine Appearance Cloudy H (Clear) Urine pH 5.5 (5.0-8.0) Ur Specific [place] 1.025 (1.001-1.035) Urine Protein Trace H (Negative) Urine Glucose (UA) Negative (Negative) Urine Ketones Negative (Negative) Urine Blood Trace H (Negative) Urine Nitrite Negative (Negative) Urine Bilirubin Negative (Negative) Urine Urobilinogen <2.0 (<2.0) mg/dL Ur Leukocyte Esterase Negative (Negative) Urine RBC 1 (0-5) /hpf Urine WBC 1 (0-5) /hpf Ur Squamous Epith Cells 9 H (0-4) /hpf Urine Bacteria Rare H (None) /hpf Urine Mucus Moderate H (None) /hpf Urine HCG, Qual Detected (Not Detectd) Blood Type Blood Type Recheck 01/28/18 01/28/18 Range/Units 13:00 13:00 WBC 6.1 (3.8-10.6) k/uL RBC 4.46 (3.80-5.40) m/uL Hgb 13.5 (11.4-16.0) gm/dL Hct 39.5 (34.0-46.0) % MCV 88.7 (80.0-100.0) fL MCH 30.2 (25.0-35.0) pg MCHC 34.0 (31.0-37.0) g/dL RDW 13.4 (11.5-15.5) % Plt Count 202 (150-450) k/uL Neutrophils % 54 % Lymphocytes % 37 % Monocytes % 6 % Eosinophils % 1 % Basophils % 0 % Neutrophils # 3.3 (1.3-7.7) k/uL Lymphocytes # 2.2 (1.0-4.8) k/uL Monocytes # 0.3 (0-1.0) k/uL Eosinophils # 0.1 (0-0.7) k/uL Basophils # 0.0 (0-0.2) k/uL Sodium (137-145) mmol/L Potassium (3.5-5.1) mmol/L Chloride (98-107) mmol/L Carbon Dioxide (22-30) mmol/L Anion Gap mmol/L BUN (7-17) mg/dL Creatinine (0.52-1.04) mg/dL Est GFR (CKD-EPI)AfAm (>60 ml/min/1.73 sqM) Est GFR (CKD-EPI)NonAf (>60 ml/min/1.73 sqM) Glucose (74-99) mg/dL Calcium (8.4-10.2) mg/dL Total Bilirubin (0.2-1.3) mg/dL AST (14-36) U/L ALT (9-52) U/L Alkaline Phosphatase (38-126) U/L Total Protein (6.3-8.2) g/dL Albumin (3.5-5.0) g/dL Amylase (30-110) U/L Lipase (23-300) U/L HCG, Quant mIU/mL Urine Color Urine Appearance (Clear) Urine pH (5.0-8.0) Ur Specific [place] (1.001-1.035) Urine Protein (Negative) Urine Glucose (UA) (Negative) Urine Ketones (Negative) Urine Blood (Negative) Urine Nitrite (Negative) Urine Bilirubin (Negative) Urine Urobilinogen (<2.0) mg/dL Ur Leukocyte Esterase (Negative) Urine RBC (0-5) /hpf Urine WBC (0-5) /hpf Ur Squamous Epith Cells (0-4) /hpf Urine Bacteria (None) /hpf Urine Mucus (None) /hpf Urine HCG, Qual (Not Detectd) Blood Type A Positive Blood Type Recheck No Disposition Clinical Impression: Threatened miscarriage Disposition: HOME SELF-CARE Condition: Good Instructions: Threatened Miscarriage (ED) Additional Instructions: Repeat blood work on 01/30/18. Repeat this before your appointment with Dr. Calloway. Call Dr. Calloway's office today and schedule an appointment for Sunday. Return to the emergency department if you have any worsening symptoms. Is patient prescribed a controlled substance at d/c from ED?: No Referrals: Debbie Otto MD [Primary Care Provider] - 1-2 days Quentin Garnica DO [Doctor of Osteopathic Medicine] - 1-2 days Time of Disposition: 15:34
[2018-01-28 13:21] LABS: Appearance,Urine Cloudy (Clear); Bacteria,Urine Rare /hpf; Bilirubin,Urine Negative (Negative); Blood,Urine Trace (Negative); Color,Urine Yellow; Glucose,Urine (UA) Negative (Negative); Ketones,Urine Negative (Negative); Leukocyte Esterase,Urine Negative (Negative); Mucus,Urine Moderate /hpf; Nitrite,Urine Negative (Negative); PH, Urine 5.5 (5.0-8.0); Protein,Urine Trace (Negative); RBC,Urine 1 /hpf (0-5); Specific Gravity,Urine 1.025 (1.001-1.035); Squamous Epithelial Cell,Urine 9 /hpf (0-4); Urobilinogen,Urine <2.0 mg/dL (<2.0); WBC,Urine 1 /hpf (0-5)
[2018-01-28 13:44] LABS: Basophils % (A) 0 %; Eosinophils # (A) 0.1 k/uL (0-0.7); Eosinophils % (A) 1 %; HCT 39.5 % (34.0-46.0); HGB 13.5 gm/dL (11.4-16.0); Lymphocytes # (A) 2.2 k/uL (1.0-4.8); Lymphocytes % (A) 37 %; MCH 30.2 pg (25.0-35.0); MCV 88.7 fL (80.0-100.0); Mean Platelet Volume 7.1; Monocytes # (A) 0.3 k/uL (0-1.0); Monocytes % (A) 6 %; Neutrophils # (A) 3.3 k/uL (1.3-7.7); Neutrophils % (A) 54 %; Platelet Count 202 k/uL (150-450); RBC 4.46 m/uL (3.80-5.40); RDW 13.4 % (11.5-15.5); WBC 6.1 k/uL (3.8-10.6)
[2018-01-28 13:56] LABS: ALT 18 U/L (9-52); AST 20 U/L (14-36); Alkaline Phosphatase 40 U/L (38-126); Amylase 40 U/L (30-110); Anion Gap 6 mmol/L; Blood Urea Nitrogen 13 mg/dL (7-17); Calcium 9.3 mg/dL (8.4-10.2); Carbon Dioxide 25 mmol/L (22-30); Chloride 108 mmol/L (98-107); Glucose 84 mg/dL (74-99); Lipase 66 U/L (23-300); Potassium 4.1 mmol/L (3.5-5.1); Sodium 139 mmol/L (137-145); Total Bilirubin 0.4 mg/dL (0.2-1.3); Total Protein 6.6 g/dL (6.3-8.2)
[2018-01-28 14:37] LABS: HCG,Quantitative Serum 1201.1 mIU/mL
--- NOTE | 2018-01-28 14:37 | US ---
EXAMINATION TYPE: Transabdominal DATE OF EXAM: 05/22/17 COMPARISON: NONE CLINICAL HISTORY: Pain. Unknown LMP- in December?, cramping EXAM PERFORMED: Transvaginal (TV) and Transabdominal (TA) EXAM MEASUREMENTS: GESTATIONAL AGE / DATING Dates by LMP: LMP unknown Dates by Current Scan for: Unable to date by today's study MATERNAL ANATOMY Uterus: 7.4 x 4.1 x 3.7 cm Right Ovary: 3.0 x 2.4 x 2.1 cm Left Ovary: 2.5 x 1.7 x 1.5 cm Post CDS / Adnexa: no free fluid Presence of free fluid: no Presence of corpus luteal cyst: Right hypoechoic lesion - 1.7 x 1.4 x 1.3 cm Presence of subchorionic bleed: no GESTATION / SURVEY MSD: Possible gestational sac visualized - 0.2 cm, unable to date Yolk Sac (normal less than 6mm): Not seen Date of LMP: Unknown LMP, Beta HcG (if available): Not available at this time Cystic lesion seen in endometrium, possible GS seen. No YS or CRL visualized. IMPRESSION: 1. Early intrauterine gestation not excluded. Yolk sac or pole not identified. Correlation with beta-hCG and follow-up is recommended.
[2018-01-28 15:43] VITALS: BP 112/72; PULSE 72
== END 2018-01-28 15:44 | disposition home or self-care (01) ==
LOC: EC 11:27
DX: O20.0 Threatened abortion (principal); O99.330 Smoking (tobacco) complicating pregnancy, unspecified trimester; F17.200 Nicotine dependence, unspecified, uncomplicated; Z53.29 Procedure and treatment not carried out because of patient's decision for other reasons; Z90.49 Acquired absence of other specified parts of digestive tract; Z3A.00 Weeks of gestation of pregnancy not specified
CPT/HCPCS: 36415; 76801; 76817; 80053; 81001; 81025; 82150; 83690; 84702; 85025; 86900; 86901; 87086; 99284

== ENCOUNTER → 2018-01-30 | Outpatient (CLI) | payer OTHER | END | disposition home or self-care (01) | LOC: LABWHC1 10:57 | DX: O20.0 Threatened abortion (principal); Z3A.00 Weeks of gestation of pregnancy not specified | CPT/HCPCS: 36415; 84702 ==

== ENCOUNTER → 2018-03-07 | Outpatient (CLI) | payer OTHER ==
--- NOTE | 2018-03-08 13:45 | US ---
EXAMINATION TYPE: Transabdominal DATE OF EXAM: 05/22/17 COMPARISON: NONE CLINICAL HISTORY: Z36 Confirm Dates. EXAM PERFORMED: Transabdominal (TA) EXAM MEASUREMENTS: GESTATIONAL AGE / DATING Physician Established: Not yet established Dates by LMP: LMP unknown Dates by First Scan: No IUP visualized Dates by Current Scan for: (10 weeks/1 days) EDC: 10/02/2018 MATERNAL ANATOMY Uterus: 13.0 x 5.4 x 7.7 cm Right Ovary: 2.8 x 2.4 x 2.3 cm Left Ovary: 2.4 x 2.2 x 1.5 cm Post CDS / Adnexa: wnl Presence of free fluid: No Presence of corpus luteal cyst: No Presence of subchorionic bleed: No GESTATION / SURVEY CRL: 3.2 cm (10 weeks/1 days) Yolk Sac (normal less than 6mm): 4 mm Heart Rate: 167 bpm Rhythm: Normal IUP: Viable IUP Date of LMP: Unsure Beta HcG (if available): Not available at this time Viable IUP with an NICOLE of 10/02/2018 by this exam IMPRESSION: Single intrauterine gestation estimated at 10 weeks 1 day gestation based on current ultrasound crown -rump length. Cardiac activity measures 167 bpm.
== END | disposition home or self-care (01) ==
LOC: RADUSWWP 16:15
PROVIDERS: ATTEND Obstetrics & Gynecology
DX: Z36.9 Encounter for antenatal screening, unspecified (principal); Z3A.10 10 weeks gestation of pregnancy
CPT/HCPCS: 76801

== ENCOUNTER → 2018-03-07 | Outpatient (CLI) | payer OTHER ==
[2018-03-07 17:25] LABS: HCT 38.6 % (34.0-46.0); MCH 30.4 pg (25.0-35.0); MCHC 33.7 g/dL (31.0-37.0); MCV 90.2 fL (80.0-100.0); Mean Platelet Volume 7.4; Platelet Count 188 k/uL (150-450); RBC 4.28 m/uL (3.80-5.40); RDW 13.2 % (11.5-15.5); WBC 9.8 k/uL (3.8-10.6)
[2018-03-08 04:07] LABS: HIV 1 AB Non-Reactive (Non-Reactive); HIV AB P24 Non-Reactive (Non-Reactive); HIV P24 AG Non-Reactive (Non-Reactive)
== END | disposition home or self-care (01) ==
LOC: LABWHC1 16:50
PROVIDERS: ATTEND Obstetrics & Gynecology
DX: Z34.81 Encounter for supervision of other normal pregnancy, first trimester (principal)
CPT/HCPCS: 36415; 82565; 82947; 85027; 86762; 86780; 86850; 86900; 86901; 87340; 87390

== ENCOUNTER 2018-05-30 20:12 | Emergency (ER) | payer OTHER ==
[2018-05-30 20:21] VITALS: BP 121/78; PULSE 96; RESP 20; TEMP 98.1
[2018-05-30 22:44] LABS: Basophils % (A) 0 %; Eosinophils # (A) 0.2 k/uL (0-0.7); Eosinophils % (A) 2 %; HCT 33.5 % (34.0-46.0); HGB 11.5 gm/dL (11.4-16.0); Lymphocytes # (A) 2.3 k/uL (1.0-4.8); Lymphocytes % (A) 25 %; MCHC 34.4 g/dL (31.0-37.0); MCV 90.1 fL (80.0-100.0); Monocytes # (A) 0.4 k/uL (0-1.0); Monocytes % (A) 4 %; Neutrophils # (A) 6.3 k/uL (1.3-7.7); Neutrophils % (A) 68 %; Platelet Count 178 k/uL (150-450); RBC 3.72 m/uL (3.80-5.40); RDW 13.2 % (11.5-15.5); WBC 9.2 k/uL (3.8-10.6)
[2018-05-30 22:52] LABS: INR 0.9 (<1.2); Partial Thromboplastin Time 24.2 sec (22.0-30.0); Prothrombin Time 9.7 sec (9.0-12.0)
[2018-05-30 22:54] LABS: ALT 24 U/L (9-52); AST 16 U/L (14-36); Albumin 3.4 g/dL (3.5-5.0); Alkaline Phosphatase 60 U/L (38-126); Anion Gap 7 mmol/L; Bilirubin, Delta 0.1 mg/dL (0.0-0.2); Bilirubin,Unconjugated 0.1 mg/dL (0.0-1.1); Blood Urea Nitrogen 11 mg/dL (7-17); Calcium 8.8 mg/dL (8.4-10.2); Carbon Dioxide 22 mmol/L (22-30); Chloride 107 mmol/L (98-107); Glucose 104 mg/dL (74-99); Potassium 3.7 mmol/L (3.5-5.1); Sodium 136 mmol/L (137-145); Total Bilirubin 0.2 mg/dL (0.2-1.3); Total Protein 5.8 g/dL (6.3-8.2)
--- NOTE | 2018-05-30 23:29 | ED ---
General Adult HPI - General Chief complaint: Skin/Abscess/Foreign Body Stated complaint: 22 Weeks Poss Jaundice Time Seen by Provider: 05/30/18 21:50 Source: patient, RN notes reviewed, old records reviewed Mode of arrival: ambulatory Limitations: no limitations - History of Present Illness Initial comments: 22-year-old female patient presents to ED for evaluation of possible jaundice. Patient reports that her family states that they believe that under eyes look a bit yellow. Patient denies any other complaints. Patient denies any abdominal pain, vaginal bleeding, dysuria, chest pain, shortness of breath. Systemic: Pt denies fatigue, myalgia, fever/chills, rash. Pt denies weakness, night sweats, weight loss. Neuro: Pt denies headache, visual disturbances, syncope or pre-syncope. HEENT: Pt denies ocular discharge or irritation, otalgia, rhinorrhea, pharyngitis or notable lymphadenopathy. Cardiopulmonary: Pt denies chest pain, SOB, heart palpitations, dyspnea on exertion. Abdominal/GI: Pt denies abdominal pain, n/v/d. : Pt denies dysuria, burning w/ urination, frequency/urgency. Denies new onset urinary or bowel incontinence. MSK: Pt denies myalgia, loss of strength or function in extremities. Neuro: Pt denies new onset weakness, paresthesias. - Related Data Home Medications Medication Instructions Recorded Confirmed No Known Home Medications 01/28/18 05/30/18 Allergies Allergy/AdvReac Type Severity Reaction Status Date / Time No Known Allergies Allergy Verified 05/30/18 22:22 Review of Systems ROS Statement: Those systems with pertinent positive or pertinent negative responses have been documented in the HPI. ROS Other: All systems not noted in ROS Statement are negative. Past Medical History Past Medical History: No Reported History Additional Past Medical History / Comment(s): Obstetric history: This is her first and she has had care with Dr Garnica since 8 weeks. A+, abs neg, Rub Imm, RPR NR, Hep B neg. Normal 1hr GTT, GBS neg. Normal anatomy US. History of Any Multi-Drug Resistant Organisms: None Reported Past Surgical History: Cholecystectomy Past Anesthesia/Blood Transfusion Reactions: No Reported Reaction Past Psychological History: No Psychological Hx Reported Smoking Status: Current every day smoker Past Alcohol Use History: None Reported Past Drug Use History: None Reported - Past Family History Father Family Medical History: No Reported History General Exam - General Exam Comments Initial Comments: Constitutional: NAD, AOX3, Pt has pleasant affect. HEENT: NC/AT, trachea midline, neck supple, no lymphadenopathy. Posterior pharynx non erythematous, without exudates. External ears appear normal, without discharge. Mucous membranes moist. Eyes PERRLA, EOM intact. There is no scleral icterus. No pallor noted. No sublingual jaundice. No jaundice noted. Cardiopulmonary: RRR, no murmurs, rubs or gallops, no JVD noted. Lungs CTAB in anterior and posterior bates. No peripheral edema. Abdominal exam: Abdomen soft and non-distended. Abdomen non-tender to palpation in all 4 quadrants. Bowel sounds active in LLQ. No hepatosplenomegaly. No ecchymosis Neuro: CN II-XII grossly intact. No nuchal rigidity. MSK: No posterior calf tenderness bilaterally, homans sign negative bilaterally. Posterior tibialis and radial pulse +2 bilaterally. Sensation intact in upper and lower extremities. Full active ROM in upper and lower extremities, 5/5 stregnth. Limitations: no limitations Course Vital Signs 05/30/18 20:19 Temperature 98.1 F Pulse Rate 96 Respiratory 20 Rate Blood Pressure 121/78 O2 Sat by Pulse 97 Oximetry Medical Decision Making - Medical Decision Making 22-year-old female patient presents to ED for evaluation of possible jaundice. Patient reports that her family states that they believe that under eyes look a bit yellow. Patient denies any other complaints. Patient denies any abdominal pain, vaginal bleeding, dysuria, chest pain, shortness of breath. Patient was sent stable, afebrile. Physical exam did not demonstrate acute pathology. No scleral icterus, no sublingual jaundice, no jaundice noted. Laboratory investigations revealed non-impressive CBC, CMP. Patient bilirubin 0.2. Patient discharged, will follow up with robotics application engineer tomorrow. Pt will return to ER if condition worsens in anyway. Case discussed with Dr. Molina. - Lab Data Result diagrams: 05/30/18 22:20 05/30/18 22:20 Lab Results 05/30/18 05/30/18 05/30/18 Range/Units 22:20 22:20 22:20 WBC 9.2 (3.8-10.6) k/uL RBC 3.72 L (3.80-5.40) m/uL Hgb 11.5 (11.4-16.0) gm/dL Hct 33.5 L (34.0-46.0) % MCV 90.1 (80.0-100.0) fL MCH 31.0 (25.0-35.0) pg MCHC 34.4 (31.0-37.0) g/dL RDW 13.2 (11.5-15.5) % Plt Count 178 (150-450) k/uL Neutrophils % 68 % Lymphocytes % 25 % Monocytes % 4 % Eosinophils % 2 % Basophils % 0 % Neutrophils # 6.3 (1.3-7.7) k/uL Lymphocytes # 2.3 (1.0-4.8) k/uL Monocytes # 0.4 (0-1.0) k/uL Eosinophils # 0.2 (0-0.7) k/uL Basophils # 0.0 (0-0.2) k/uL PT 9.7 (9.0-12.0) sec INR 0.9 (<1.2) APTT 24.2 (22.0-30.0) sec Sodium 136 L (137-145) mmol/L Potassium 3.7 (3.5-5.1) mmol/L Chloride 107 (98-107) mmol/L Carbon Dioxide 22 (22-30) mmol/L Anion Gap 7 mmol/L BUN 11 (7-17) mg/dL Creatinine 0.47 L (0.52-1.04) mg/dL Est GFR (CKD-EPI)AfAm >90 (>60 ml/min/1.73 sqM) Est GFR (CKD-EPI)NonAf >90 (>60 ml/min/1.73 sqM) Glucose 104 H (74-99) mg/dL Calcium 8.8 (8.4-10.2) mg/dL Total Bilirubin 0.2 (0.2-1.3) mg/dL Conjugated Bilirubin 0.0 (0.0-0.3) mg/dL Unconjugated Bilirubin 0.1 (0.0-1.1) mg/dL Delta Bilirubin 0.1 (0.0-0.2) mg/dL AST 16 (14-36) U/L ALT 24 (9-52) U/L Alkaline Phosphatase 60 (38-126) U/L Total Protein 5.8 L (6.3-8.2) g/dL Albumin 3.4 L (3.5-5.0) g/dL Disposition Clinical Impression: Disposition: HOME SELF-CARE Condition: Stable Instructions (If sedation given, give patient instructions): (ED) Additional Instructions: Patient to adhere to previously discussed treatment plan and will take medication(s) as directed. Patient to follow up with PCP in 1-2 days. Patient to return to ED if symptoms do not improve. please follow-up with robotics application engineer tomorrow. Please return to ER if condition worsens in anyway. Is patient prescribed a controlled substance at d/c from ED?: No Referrals: Debbie Otto MD [Primary Care Provider] - 1-2 days
== END 2018-05-30 23:44 | disposition home or self-care (01) ==
LOC: EC 20:12
DX: Z03.89 Encounter for observation for other suspected diseases and conditions ruled out (principal); O99.332 Smoking (tobacco) complicating pregnancy, second trimester; F17.200 Nicotine dependence, unspecified, uncomplicated; Z3A.22 22 weeks gestation of pregnancy
CPT/HCPCS: 36415; 80053; 82248; 85025; 85610; 85730; 99284

== ENCOUNTER 2018-07-28 09:29 | Emergency (ER) | payer OTHER ==
[2018-07-28 09:50] VITALS: BP 117/77; RESP 16; TEMP 98.7
[2018-07-28] MEDS ORDERED: PENICILLIN VK 500MG STARTER 4 TAB BTL PO STA (10:25)
--- NOTE | 2018-07-28 10:27 | ED ---
ENT HPI - General Chief complaint: Dental/Oral Stated complaint: Oral Pain Time Seen by Provider: 07/28/18 10:00 Source: patient Mode of arrival: ambulatory Limitations: no limitations - History of Present Illness Initial comments: 22-year-old female presenting today for chief complaint of left upper dental pain. Patient states she has had a dental infection the past. She states the past 2 days she has no symptoms similar. She states she does have a filling in that tooth and there is a slight crack. Patient denies any facial swelling swelling or tongue difficulty breathing swallowing or fever. Patient states she's been taking Tylenol for pain with last dose the night before. Remaining review of systems negative upon arrival patient appears well no signs of acute distress. Patient denies any recent shortness of breath, chest pain, back pain, abdominal pain, nausea or vomiting, numbness or tingling, dysuria or hematuria, constipation or diarrhea, headaches or visual changes, or any other complaints. - Related Data Previous Rx's Medication Instructions Recorded Acetaminophen Tab [Tylenol Tab] 650 mg PO Q6H PRN 7 Days #28 tablet 07/28/18 Amoxicillin 500 mg PO Q8H 7 Days #21 capsule 07/28/18 Allergies Allergy/AdvReac Type Severity Reaction Status Date / Time No Known Allergies Allergy Verified 07/28/18 09:49 Review of Systems ROS Statement: Those systems with pertinent positive or pertinent negative responses have been documented in the HPI. ROS Other: All systems not noted in ROS Statement are negative. Past Medical History Past Medical History: No Reported History Additional Past Medical History / Comment(s): Obstetric history: This is her first and she has had care with Dr Garnica since 8 weeks. A+, abs neg, Rub Imm, RPR NR, Hep B neg. Normal 1hr GTT, GBS neg. Normal anatomy US. History of Any Multi-Drug Resistant Organisms: None Reported Past Surgical History: Cholecystectomy Past Anesthesia/Blood Transfusion Reactions: No Reported Reaction Past Psychological History: No Psychological Hx Reported Smoking Status: Current every day smoker Past Alcohol Use History: None Reported Past Drug Use History: None Reported - Past Family History Father Family Medical History: No Reported History General Exam - General Exam Comments Initial Comments: General: The patient is awake and alert, in no distress, and does not appear acutely ill. Eye: Pupils are equal, round and reactive to light, extra-ocular movements are intact. No nystagmus. There is normal conjunctiva bilaterally. No signs of icterus. Ears, nose, mouth and throat: There are moist mucous membranes and no oral lesions. Tooth #12 has cracked crown with filling in place. There is tenderness to percussion. No palpable abscess. No facial swelling or swelling below the angle of the mandible. No swelling below the tongue. No stridor. Neck: The neck is supple, there is no tenderness or JVD. Cardiovascular: There is a regular rate and rhythm. No murmur, rub or gallop is appreciated. Respiratory: Lungs are clear to auscultation, respirations are non-labored, breath sounds are equal. No wheezes, stridor, rales, or rhonchi. Musculoskeletal: Normal ROM, no tenderness. Strength 5/5. Sensation intact. Pulses equal bilaterally 2+. Neurological: A&O x 3. CN II-XII intact, There are no obvious motor or sensory deficits. Coordination appears grossly intact. Speech is normal. Skin: Skin is warm and dry and no rashes or lesions are noted. Psychiatric: Cooperative, appropriate mood & affect, normal judgment. Limitations: no limitations Course Vital Signs 07/28/18 07/28/18 07/28/18 09:47 10:31 10:52 Temperature 98.7 F 98.7 F Pulse Rate 116 H 105 H 105 H Respiratory 16 16 Rate Blood Pressure 117/77 117/77 O2 Sat by Pulse 97 97 Oximetry Medical Decision Making - Medical Decision Making Very well-appearing 22-year-old female presented for dental pain. Tooth #12 is tender to percussion. Concerned for possible developing periapical abscess. First root exposure from crack dentition. Patient has multiple carious teeth. At this time given patient is 30 weeks she'll be started on amoxicillin per condition from attending provider Dr. Hicks. Patient is to follow-up with dentist, I discussed that the tooth may need to be extracted for ultimate treatment. Patient denies any fever or constitutional symptoms she appears well signs of Kenneth's angina. Patient's heart rate is elevated however patient denies any other associated symptoms. Patient is afebrile. Repeat heart rate decreased. Patient is agreeable with care plan and discharge at this time. Her parameters were discussed with patient who verbalized understanding. Disposition Clinical Impression: Pain, dental Disposition: HOME SELF-CARE Condition: Good Instructions (If sedation given, give patient instructions): Dental Abscess (ED), Toothache (ED) Additional Instructions: Please use medication (AMOXICILLIN, do not fill the PENCILLIN VK) as discussed. Please follow-up with dentist for evaluation in the next 2-3 days, tooth most likely requires extraction. Please return to emergency room if the symptoms increase or worsen or for any other concerns-occluding swelling below tongue, difficulty breathing or swallowing, fever Prescriptions: Amoxicillin 500 mg PO Q8H 7 Days #21 capsule Acetaminophen Tab [Tylenol Tab] 650 mg PO Q6H PRN 7 Days #28 tablet PRN Reason: Pain Is patient prescribed a controlled substance at d/c from ED?: No Referrals: Debbie Otto MD [Primary Care Provider] - 1-2 days Candido Alvarenga DDS [STAFF PHYSICIAN] - 1-2 days Time of Disposition: 10:26
[2018-07-28] MEDS ORDERED: AMOXICILLIN 500MG STARTER PACK 3 CAP BTL PO STA (10:28)
[2018-07-28 10:32] VITALS: PULSE 105
== END 2018-07-28 10:52 | disposition home or self-care (01) ==
LOC: EC 09:29
DX: O99.613 Diseases of the digestive system complicating pregnancy, third trimester (principal); K08.89 Other specified disorders of teeth and supporting structures; O99.333 Smoking (tobacco) complicating pregnancy, third trimester; F17.200 Nicotine dependence, unspecified, uncomplicated; Z3A.30 30 weeks gestation of pregnancy
CPT/HCPCS: 99282

== ENCOUNTER 2018-09-27 06:15 | Inpatient (IN) | payer OTHER ==
[2018-09-27] MEDS ORDERED: LIDOCAINE 0.5% (PF) 5 MG/ML (50 ML SDV) SQ PRN (06:59)
[2018-09-27] MEDS ORDERED: METHYLERGONOVINE 0.2 MG/ML 1 ML AMP IM PRN (06:59)
[2018-09-27] MEDS ORDERED: TERBUTALINE 1 MG/ML VIAL SQ PRN (06:59)
[2018-09-27] MEDS ORDERED: OXYTOCIN 10 UNIT/ML 1 ML VIAL IM PRN (06:59)
[2018-09-27] MEDS ORDERED: AMPICILLIN 2,000 MG in SODIUM CHLORIDE 0.9% 100 ML IVPB STA (06:59)
[2018-09-27] MEDS ORDERED: CARBOPROST TROMETHAMINE 250 MCG/ML 1 ML AMP IM PRN (06:59)
[2018-09-27] MEDS ORDERED: OXYTOCIN 30 UNITS/500 ML NS 30 UNIT in SALINE 1 500ML.BAG IV SCH (07:00)
[2018-09-27] MEDS ORDERED: LACTATED RINGERS 1,000 ML IV SCH (07:00)
[2018-09-27] MEDS: LACTATED RINGERS 1,000 ML IV SCH ×2 (07:10→09:29)
[2018-09-27 07:15] VITALS: RESP 16
[2018-09-27 07:20] LABS: Basophils % (A) 0 %; Eosinophils # (A) 0.2 k/uL (0-0.7); Eosinophils % (A) 2 %; HCT 34.4 % (34.0-46.0); HGB 11.7 gm/dL (11.4-16.0); Lymphocytes # (A) 3.5 k/uL (1.0-4.8); Lymphocytes % (A) 28 %; MCH 30.2 pg (25.0-35.0); MCHC 33.8 g/dL (31.0-37.0); MCV 89.3 fL (80.0-100.0); Mean Platelet Volume 7.3; Monocytes # (A) 0.7 k/uL (0-1.0); Monocytes % (A) 6 %; Neutrophils # (A) 7.9 k/uL (1.3-7.7); Neutrophils % (A) 63 %; Platelet Count 311 k/uL (150-450); RBC 3.85 m/uL (3.80-5.40); RDW 13.8 % (11.5-15.5); WBC 12.5 k/uL (3.8-10.6)
[2018-09-27] MEDS ORDERED: ROPIVACAINE 5MG/ML 20ML VIAL ONE (09:10)
[2018-09-27] MEDS ORDERED: fentaNYL (PF) 50 MCG/ML 5 ML AMP ONE (09:10)
[2018-09-27] MEDS ORDERED: SODIUM CHLORIDE 0.9% 100 ML BAG ONE (09:10)
[2018-09-27] MEDS ORDERED: AMPICILLIN 1,000 MG in SODIUM CHLORIDE 0.9% 50 ML IVPB SCH (11:00)
[2018-09-27] MEDS ORDERED: diphenhydrAMINE 50 MG/ML 1 ML VIAL IVP PRN ×2 (13:20)
[2018-09-27] MEDS ORDERED: WITCH HAZEL 1 EACH MED..PAD TOPICAL PRN (13:20)
[2018-09-27] MEDS ORDERED: BENZOCAINE/MENTHOL SPRAY 1 GM/SPRAY AEROSOL TOPICAL PRN (13:20)
[2018-09-27] MEDS ORDERED: ZOLPIDEM 5 MG TAB PO PRN (13:20)
[2018-09-27] MEDS ORDERED: SIMETHICONE 80 MG CHEWABLE PO PRN (13:20)
[2018-09-27] MEDS ORDERED: LANOLIN CREAM 5 GM TUBE TOPICAL PRN (13:20)
[2018-09-27] MEDS ORDERED: HYDROCORTISONE 2.5% RECTAL CREAM 30 GM TUBE RECTAL PRN (13:20)
[2018-09-27] MEDS ORDERED: diphenhydrAMINE 50 MG CAP PO PRN (13:20)
[2018-09-27] MEDS ORDERED: ACETAMINOPHEN TAB 325 MG TAB PO PRN (13:20)
[2018-09-27] MEDS ORDERED: diphenhydrAMINE 25 MG CAP PO PRN (13:20)
--- NOTE | 2018-09-27 13:22 | P.HPOB ---
History of Present Illness H&P Date: 09/27/18 Chief Complaint: Intrauterine at term: Induction of labor Summary is a 22-year-old at 39 weeks gestation arise for induction of labor. Her course has been unremarkable however she did have some gaps in her care. Currently her vital signs are stable and afebrile. Her heart is regular, lungs are clear, extremities without pain. Abdomen soft gravid uterus is noted. Category 1 tracing is noted. She voices no points throughout the course. She is aware of risks and benefits of an induction of labor. Pertinent labs could A+ blood type Rh and it was negative. Rubella was immune, hepatitis C surface antigen was negative however groupie strep was positive. We'll plan antibody prophylaxis. She plans to use epidural for analgesia. Assessment intrauterine at term. Plan as above Past Medical History Past Medical History: No Reported History Additional Past Medical History / Comment(s): Obstetric history: This is her first and she has had care with Dr Garnica since 8 weeks. A+, abs neg, Rub Imm, RPR NR, Hep B neg. Normal 1hr GTT, GBS neg. Normal anatomy US. History of Any Multi-Drug Resistant Organisms: None Reported Past Surgical History: Cholecystectomy Past Anesthesia/Blood Transfusion Reactions: No Reported Reaction Past Psychological History: No Psychological Hx Reported Smoking Status: Current every day smoker Past Alcohol Use History: None Reported Past Drug Use History: None Reported - Past Family History Father Family Medical History: No Reported History Medications and Allergies Allergies Allergy/AdvReac Type Severity Reaction Status Date / Time No Known Allergies Allergy Verified 07/28/18 09:49 Exam Osteopathic Statement: *. No significant issues noted on an osteopathic structural exam other than those noted in the History and Physical/Consult. Vital Signs Temp Pulse Resp BP Pulse Ox 09/27/18 06:52 96.8 F L 111 H 16 120/74 99 Intake and Output 09/26/18 09/27/18 09/27/18 22:59 06:59 14:59 Other: Weight 85.729 kg Results Result Diagrams: 09/27/18 06:10 Abnormal Lab Results - Last 24 Hours (Table) 09/27/18 Range/Units 06:10 WBC 12.5 H (3.8-10.6) k/uL Neutrophils # 7.9 H (1.3-7.7) k/uL
--- NOTE | 2018-09-27 13:23 | P.PROBDLV ---
Vaginal Delivery Note - . Vaginal Delivery Note: Patient progressed complete and pushed with spontaneous vaginal delivery of a viable male over an intact perineum. Falling deliver the head nuchal cord 1 was noted but baby was easily delivered through the nuchal cord. Once fully delivered mouth nares were bulb suctioned and baby was placed mother's abdomen where the umbilical cord was clamped and cut in usual fashion for 30 seconds of pulsation. Nursery personnel present to assume care. Placenta was then delivered intact and Pitocin was added to the IV. scores weight are both pending, but both mother and baby currently appear stable.
[2018-09-27] MEDS ORDERED: OXYTOCIN 20 UNITS/1000 ML NS 1,000 ML IV SCH (13:30)
[2018-09-27] MEDS: IBUPROFEN 600 MG TAB PO PRN (18:58)
[2018-09-27] MEDS: SENNOSIDES-DOCUSATE SODIUM 1 EACH TAB PO SCH (21:24)
[2018-09-28 00:11] VITALS: PULSE 80
[2018-09-28] MEDS: IBUPROFEN 600 MG TAB PO PRN ×2 (02:54→11:24)
[2018-09-28 08:46] VITALS: BP 103/61; TEMP 98
[2018-09-28] MEDS: SENNOSIDES-DOCUSATE SODIUM 1 EACH TAB PO SCH (08:46)
--- NOTE | 2018-09-28 10:54 | P.DS ---
Providers Date of admission: 09/27/18 06:48 Expected date of discharge: 09/28/18 Attending physician: Quentin Garnica Primary care physician: Stated None Hospital Course: Summary is doing very well day 1. She is involuting, voiding and tolerating her diet. She voices no complaints and all questions are answered for her prior to discharge. She is stable for discharge this time. Discharge instructions were thoroughly reviewed. Prescription for Motrin was 40 to her pharmacy. On physical exam vital signs are stable and afebrile. Heart regular, lungs clear, extremities without pain. Abdomen soft nontender. Positive bowel sounds are noted. Lochia is reported be light. Assessment day 1. Plan discharged home follow up with me in 6 weeks. Patient Condition at Discharge: Good Plan - Discharge Summary New Discharge Prescriptions: New Ibuprofen [Motrin] 600 mg PO Q6HR PRN #30 tab PRN Reason: Pain Discharge Medication List Ibuprofen [Motrin] 600 mg PO Q6HR PRN #30 tab 09/28/18 [Rx] Follow up Appointment(s)/Referral(s): Quentin Garnica DO [Doctor of Osteopathic Medicine] - 6 Weeks Activity/Diet/Wound Care/Special Instructions: No heavy lifting, limit stairs and driving, and pelvic rest. If any high temperatures, heavy bleeding, or severe pain call my office Discharge Disposition: HOME SELF-CARE
== END 2018-09-28 15:00 | disposition home or self-care (01) | DRG 807 ==
LOC: 4FBP 06:48
PROVIDERS: ADMIT Obstetrics & Gynecology; ATTEND Obstetrics & Gynecology
PROC: 10E0XZZ Delivery of Products of Conception, External Approach (ICD-10-PCS; principal; 2018-09-27)
PROC: 00HU33Z Insertion of Infusion Device into Spinal Canal, Percutaneous Approach (ICD-10-PCS; 2018-09-27)
PROC: 3E0R3BZ Introduction of Anesthetic Agent into Spinal Canal, Percutaneous Approach (ICD-10-PCS; 2018-09-27)
DX: O69.81X0 Labor and delivery complicated by cord around neck, without compression, not applicable or unspecified (principal); Z37.0 Single live birth; O99.334 Smoking (tobacco) complicating childbirth; F17.200 Nicotine dependence, unspecified, uncomplicated; O99.824 Streptococcus B carrier state complicating childbirth; O99.62 Diseases of the digestive system complicating childbirth; K21.9 Gastro-esophageal reflux disease without esophagitis; Z3A.39 39 weeks gestation of pregnancy
CPT/HCPCS: 85025; 86850; 86900; 86901

== ENCOUNTER 2024-02-12 02:50 | Emergency (ER) | payer OTHER ==
[2024-02-12 02:56] VITALS: TEMP 99
--- NOTE | 2024-02-12 03:04 | ED ---
URI HPI - General Chief Complaint: Upper Respiratory Infection Stated Complaint: Fever, cough, sore throat Time Seen by Provider: 02/12/24 02:58 Source: patient, RN notes reviewed, old records reviewed Mode of arrival: ambulatory Limitations: no limitations - History of Present Illness Initial Comments: This is a 28-year-old female who presents today for evaluation of sore throat upper respiratory symptoms cough and congestion, patient's boyfriend is also sick, patient is currently MD Complaint: fever, cough, sore throat -: days(s) Severity: moderate Severity scale (1-10): 6 Consistency: constant Improves With: nothing Worsens With: nothing Associated Symptoms: fever, chills, myalgias, sore throat Treatments Prior to Arrival: none - Related Data Previous Rx's Medication Instructions Recorded Ibuprofen [Motrin] 600 mg PO Q6HR PRN #30 tab 09/28/18 Allergies Allergy/AdvReac Type Severity Reaction Status Date / Time No Known Allergies Allergy Verified 02/12/24 02:53 Review of Systems ROS Statement: Those systems with pertinent positive or pertinent negative responses have been documented in the HPI. ROS Other: All systems not noted in ROS Statement are negative. Past Medical History Past Medical History: No Reported History Additional Past Medical History / Comment(s): Obstetric history: This is her first and she has had care with Dr Garnica since 8 weeks. A+, abs neg, Rub Imm, RPR NR, Hep B neg. Normal 1hr GTT, GBS neg. Normal anatomy US. History of Any Multi-Drug Resistant Organisms: None Reported Past Surgical History: Cholecystectomy Past Anesthesia/Blood Transfusion Reactions: No Reported Reaction Past Psychological History: No Psychological Hx Reported Smoking Status: Current every day smoker Past Alcohol Use History: None Reported Past Drug Use History: None Reported - Past Family History Father Family Medical History: No Reported History General Exam Limitations: no limitations General appearance: alert, in no apparent distress Head exam: Present: atraumatic, normocephalic, normal inspection Eye exam: Present: normal appearance, PERRL, EOMI. Absent: scleral icterus, conjunctival injection, periorbital swelling ENT exam: Present: normal exam, mucous membranes moist Neck exam: Present: normal inspection. Absent: tenderness, meningismus, lymph adenopathy Respiratory exam: Present: normal lung sounds bilaterally. Absent: respiratory distress, wheezes, rales, rhonchi, stridor Cardiovascular Exam: Present: regular rate, normal rhythm, normal heart sounds. Absent: systolic murmur, diastolic murmur, rubs, gallop, clicks GI/Abdominal exam: Present: soft, normal bowel sounds. Absent: distended, tenderness, guarding, rebound, rigid Extremities exam: Present: normal inspection, full ROM, normal capillary refill. Absent: tenderness, pedal edema, joint swelling, calf tenderness Back exam: Present: normal inspection Neurological exam: Present: alert, oriented X3, CN II-XII intact Psychiatric exam: Present: normal affect, normal mood Skin exam: Present: warm, dry, intact, normal color. Absent: rash Course Vital Signs 02/12/24 02/12/24 02:53 04:20 Temperature 99 F Pulse Rate 82 101 H Respiratory 20 22 Rate Blood Pressure 107/69 109/74 O2 Sat by Pulse 100 98 Oximetry - Reevaluation(s) Reevaluation #1: 02/12/24 04:11 Records reviewed Reevaluation #2: 02/12/24 04:11 Patient symptoms unchanged Reevaluation #3: 02/12/24 04:11 Patient informed of results and questions answered Reevaluation #4: Was pt. sent in by a medical professional or institution (, PA, BATCH MAKER, urgent care, hospital, or [facility]...) When possible be specific @ -no Did you speak to anyone other than the patient for history (EMS, parent, family, police, friend...)? What history was obtained from this source @ -no Did you review nursing and triage notes (agree or disagree)? Why? @ -agree Are old charts reviewed (outside hosp., previous admission, EMS record, old EKG, old radiological studies, urgent care reports/EKG's, [facility] records)? Report findings @ -yes Differential Diagnosis (chest pain, altered mental status, abdominal pain women, abdominal pain men, vaginal bleeding, weakness, fever, dyspnea, syncope, headache, dizziness, GI bleed, back pain, seizure, CVA, palpatations, mental health, musculoskeletal)? @ -prior EKG interpreted by me (3pts min.). @ -no X-rays interpreted by me (1pt min.). @ -no CT interpreted by me (1pt min.). @ -no U/S interpreted by me (1pt. min.). @ -no What testing was considered but not performed or refused? (CT, X-rays, U/S, labs)? Why? @ -none What meds were considered but not given or refused? Why? @ -none Did you discuss the management of the patient with other professionals (professionals i.e. Dr., PA, BATCH MAKER, lab, RT, psych nurse, clinical social worker, nonprofit director, teacher, guest relations officer, piano case and bench assembler)? Give summary @ -no Was smoking cessation discussed for >3mins.? @ -no Was critical care preformed (if so, how long)? @ -no Were there social determinants of health that impacted care today? How? (Homelessness, low income, unemployed, alcoholism, drug addiction, transportation, low edu. Level, literacy, decrease access to med. care, nursing home, rehab)? @ -none Was there de-escalation of care discussed even if they declined (Discuss DNR or withdrawal of care, Hospice)? DNR status @ -no What co-morbidities impacted this encounter? (DM, HTN, Smoking, COPD, CAD, Cancer, CVA, ARF, Chemo, Hep., AIDS, mental health diagnosis, sleep apnea, morbid obesity)? @ -none Was patient admitted / discharged? Hospital course, mention meds given and route, prescriptions, significant lab abnormalities, going to OR and other pertinent info. @ - 28 female to ER with fever and cough. Positive for influenza here in the ER patient is in no acute distress feels better and can be discharged home Discharge Undiagnosed new problem with uncertain prognosis? @ -no Drug Therapy requiring intensive monitoring for toxicity (Heparin, Nitro, Insulin, Cardizem)? @ -no Were any procedures done? @ -no Diagnosis/symptom? @ -Influenza Acute, or Chronic, or Acute on Chronic? @ -Acute Uncomplicated (without systemic symptoms) or Complicated (systemic symptoms)? @ -Complicated Side effects of treatment? @ -no Exacerbation, Progression, or Severe Exacerbation? @ -exacerbation Poses a threat to life or bodily function? How? (Chest pain, [place], [place], pneumonia, PE, COPD, DKA, ARF, appy, cholecystitis, CVA, Diverticulitis, Homicidal, Suicidal, threat to staff... and all critical care pts) @ -no Medical Decision Making - Medical Decision Making 28 female to ER with fever and cough. Positive for influenza here in the ER patient is in no acute distress feels better and can be discharged home - Lab Data Lab Results 02/12/24 02/12/24 02/12/24 Range/Units 03:09 03:09 03:35 Urine Color Colorless Urine Appearance Clear (Clear) Urine pH 6.0 (5.0-8.0) Ur Specific [place] 1.012 (1.001-1.035) Urine Protein Negative (Negative) Urine Glucose (UA) Negative (Negative) Urine Ketones Negative (Negative) Urine Blood Small H (Negative) Urine Nitrite Negative (Negative) Urine Bilirubin Negative (Negative) Urine Urobilinogen <2.0 (<2.0) mg/dL Ur Leukocyte Esterase Negative (Negative) Urine RBC 2 (0-5) /hpf Urine WBC <1 (0-5) /hpf Ur Squamous Epith Cells 3 (0-4) /hpf Urine Bacteria Rare H (None) /hpf Urine Mucus Rare H (None) /hpf Influenza Type A (PCR) Detected A (Not Detectd) Influenza Type B (PCR) Not Detected (Not Detectd) RSV (PCR) Not Detected (Not Detectd) SARS-CoV-2 (PCR) Not Detected (Not Detectd) Group A Strep (PCR) NOT DETECTED (Not Detectd) Disposition Clinical Impression: Influenza A Disposition: HOME SELF-CARE Condition: Good Instructions (If sedation given, give patient instructions): Influenza (ED) Is patient prescribed a controlled substance at d/c from ED?: No Referrals: None,Stated [Primary Care Provider] - 1-2 days Time of Disposition: 04:00
[2024-02-12] MEDS: ACETAMINOPHEN TAB 500 MG TAB PO STA (03:10)
[2024-02-12 04:23] VITALS: BP 109/74; PULSE 101; RESP 22
[2024-02-12 05:02] LABS: Appearance,Urine Clear (Clear); Bacteria,Urine Rare /hpf; Bilirubin,Urine Negative (Negative); Blood,Urine Small (Negative); Color,Urine Colorless; Glucose,Urine (UA) Negative (Negative); Ketones,Urine Negative (Negative); Leukocyte Esterase,Urine Negative (Negative); Mucus,Urine Rare /hpf; Nitrite,Urine Negative (Negative); Protein,Urine Negative (Negative); RBC,Urine 2 /hpf (0-5); Specific Gravity,Urine 1.012 (1.001-1.035); Squamous Epithelial Cell,Urine 3 /hpf (0-4); Urobilinogen,Urine <2.0 mg/dL (<2.0); WBC,Urine <1 /hpf (0-5)
== END 2024-02-12 05:30 | disposition home or self-care (01) ==
LOC: EC 02:50
DX: O98.519 Other viral diseases complicating pregnancy, unspecified trimester (principal); J10.1 Influenza due to other identified influenza virus with other respiratory manifestations; O99.330 Smoking (tobacco) complicating pregnancy, unspecified trimester; F17.200 Nicotine dependence, unspecified, uncomplicated; Z3A.00 Weeks of gestation of pregnancy not specified
CPT/HCPCS: 81001; 87636; 87651; 99284

== ENCOUNTER 2024-08-26 16:16 | Inpatient (IN) | payer OTHER ==
[2024-08-26] MEDS ORDERED: METHYLERGONOVINE 0.2 MG/ML 1 ML AMP IM PRN (16:21)
[2024-08-26] MEDS ORDERED: OXYTOCIN 10 UNIT/ML 1 ML VIAL IM PRN (16:21)
[2024-08-26] MEDS ORDERED: LIDOCAINE 0.5% (PF) 5 MG/ML (50 ML SDV) SQ PRN (16:21)
[2024-08-26] MEDS ORDERED: TRANEXAMIC 1,000 MG/100ML-NACL 1,000 MG in EMPTY BAG 1 BAG IV PRN (16:21)
[2024-08-26] MEDS ORDERED: TERBUTALINE 1 MG/ML VIAL SQ PRN (16:21)
[2024-08-26] MEDS ORDERED: CARBOPROST TROMETHAMINE 250 MCG/ML 1 ML AMP IM PRN (16:21)
[2024-08-26] MEDS: OXYTOCIN 30 UNITS/500 ML NS 30 UNIT in SALINE 1 500ML.BAG IV SCH (16:25)
[2024-08-26] MEDS ORDERED: OXYTOCIN 30 UNITS/500 ML NS 30 UNIT in SALINE 1 500ML.BAG IV SCH (16:30)
[2024-08-26 16:32] LABS: Basophils # (A) 0.04 10*3/uL (0.00-0.10); Basophils % (A) 0.2 %; Eosinophils # (A) 0.05 10*3/uL (0.04-0.35); Eosinophils % (A) 0.3 %; HCT 37.1 % (37.2-46.3); HGB 12.6 g/dL (12.0-15.0); Lymphocytes # (A) 3.56 10*3/uL (0.90-5.00); Lymphocytes % (A) 18.9 %; MCH 30.3 pg (27.0-32.0); MCHC 34.0 g/dL (32.0-37.0); MCV 89.2 fL (80.0-97.0); Monocytes # (A) 1.20 10*3/uL (0.20-1.00); Monocytes % (A) 6.4 %; Neutrophils # (A) 13.83 10*3/uL (1.80-7.70); Neutrophils % (A) 73.5 %; Platelet Count 398 10*3/uL (140-440); RBC 4.16 10*6/uL (4.10-5.20); RDW 14.3 % (11.5-14.5); WBC 18.82 10*3/uL (4.50-10.00)
[2024-08-26] MEDS ORDERED: diphenhydrAMINE 50 MG/ML 1 ML VIAL IVP PRN ×2 (16:40)
[2024-08-26] MEDS ORDERED: BENZOCAINE/MENTHOL SPRAY 1 GM/SPRAY AEROSOL TOPICAL PRN (16:40)
[2024-08-26] MEDS ORDERED: LANOLIN CREAM 1 GM TUBE TOPICAL PRN (16:40)
[2024-08-26] MEDS ORDERED: diphenhydrAMINE 25 MG CAP PO PRN (16:40)
[2024-08-26] MEDS ORDERED: ZOLPIDEM 5 MG TAB PO PRN (16:40)
[2024-08-26] MEDS ORDERED: HYDROCORTISONE 2.5% RECTAL CREAM 30 GM TUBE RECTAL PRN (16:40)
[2024-08-26] MEDS ORDERED: SIMETHICONE 80 MG CHEWABLE PO PRN (16:40)
--- NOTE | 2024-08-26 16:46 | P.HPOB ---
History of Present Illness H&P Date: 08/26/24 Chief Complaint: 39-5/7 weeks, active labor The patient is a 28-year-old 3 para 2-0-0-2 admitted at 39-5/7 weeks as established by last menstrual period and confirmed by 9-week ultrasound. She is admitted in active labor completely dilated with a bulging bag of water in the emergency room. She was rushed to labor and delivery with all signs reassuring, category 1 heart rate tracing. On labor delivery I arrived, gowned, and ruptured the bag of water to affect delivery shortly thereafter. Her has been essentially uncomplicated though she is apparently hepatitis B nonimmune and has had the vaccination recommended . She was also kno wn to be group B strep positive but had no time to receive antibiotic prophylaxis. Obstetrical history: 3 para 2-0-0-2 with 2 term vaginal deliveries without complications. Current statistics are listed in history of present illness. EDC of 08/28/2024 was established by last menstrual period and confirmed by 9-week ultrasound. Laboratory workup demonstrates a blood type of A+ with a negative antibody screen. Rubella status is immune. The remainder of the laboratory workup was within normal limits except for being hepatitis B nonimmune. 1 hour Glucola was normal and group B strep status was negative. Gynecologic history: Unremarkable with no history of any infections to include STDs. Review of Systems Review of systems is confined to history present illness. Past Medical History Past Medical History: No Reported History Additional Past Medical History / Comment(s): Obstetric history: This is her first and she has had care with Dr Garnica since 8 weeks. A+, abs neg, Rub Imm, RPR NR, Hep B neg. Normal 1hr GTT, GBS neg. Normal anatomy US. History of Any Multi-Drug Resistant Organisms: None Reported Past Surgical History: Cholecystectomy Past Anesthesia/Blood Transfusion Reactions: No Reported Reaction Past Psychological History: No Psychological Hx Reported Smoking Status: Current every day smoker Past Alcohol Use History: None Reported Past Drug Use History: None Reported - Past Family History Father Family Medical History: No Reported History Medications and Allergies Home Medications Medication Instructions Recorded Confirmed Type Ibuprofen [Motrin] 600 mg PO Q6HR PRN #30 tab 09/28/18 08/26/24 Rx Allergies Allergy/AdvReac Type Severity Reaction Status Date / Time No Known Allergies Allergy Verified 02/12/24 02:53 Exam Vital Signs Temp Pulse Pulse Resp BP 08/26/24 16:20 97.6 F 98 16 126/83 08/26/24 16:19 97.6 F 98 14 126/83 Intake and Output 08/26/24 08/26/24 08/26/24 06:59 14:59 22:59 Output Total 100 Balance -100 Output: Output, Quantitative 100 Blood Loss Other: Weight 81.647 kg In general, this is a well-developed, well-nourished white female in significant discomfort as she is completely dilated with a bulging bag of water. Her heart has a regular rhythm right without murmur. Her lungs clear to auscultation bilaterally in all bates. Her abdomen is gravid, nondistended, has normal active bowel sounds, soft, nontender, and without any masses aside from the ut erine fundus. Her extremities are without any cyanosis, clubbing, or edema and are nontender to palpation bilaterally. Digital cervical examination demonstrates the cervix to be completely dilated with a bulging bag of water with the vertex presentation at -2 station. Artificial rupture of membranes is carried out demonstrating clear fluid. Results Result Diagrams: 08/26/24 16:15 Abnormal Lab Results - Last 24 Hours (Table) 08/26/24 Range/Units 16:15 WBC 18.82 H (4.50-10.00) 10*3/uL Hct 37.1 L (37.2-46.3) % Immature Gran # 0.14 H (0.00-0.04) 10*3/uL Neutrophils # 13.83 H (1.80-7.70) 10*3/uL Monocytes # 1.20 H (0.20-1.00) 10*3/uL Assessment and Plan (1) Active labor at term Current Visit: Yes Status: Acute Code(s): [id number] - SNOMED Code(s): 00403701 Plan: The patient is admitted for active management of labor. Artificial rupture of membranes has been carried out and I anticipate vaginal delivery shortly. There is no time for antibiotic prophylaxis nor analgesic options.
--- NOTE | 2024-08-26 16:48 | P.PROBDLV ---
Vaginal Delivery Note - . Vaginal Delivery Note: The patient is a 28-year-old 3 para 2-0-0-2 admitted at 39-5/7 weeks by good dating parameters. She presented to the emergency room completely dilated with a bulging bag of water and active labor. All signs are reassuring with a category 1 heart rate tracing. She was rushed to labor and delivery at which time I arrived on the scene. I gowned and broke the bag of water for clear fluid. She then pushed over the course of the next 1-2 contractions to a normal spontaneous vaginal delivery of a viable 7 pound 12 ounce baby boy with Apgars of 8 at 1 minute and 9 at 5 minutes delivered in the direct occiput anterior position. There was a loose nuchal cord x 1 reduced following delivery of the infant. The placenta was delivered spontaneously, intact, and grossly normal with a grossly normal, centrally inserted three-vessel cord. There were no lacerations to the perineum, vagina, or cervix. Estimated blood loss for the case was approximately 100 mL or less. There were no complications aside from the relatively precipitous nature of the labor and delivery. All sponge, instrument, and needle counts were correct. Both mother and are resting comfortably in recovery.
[2024-08-26] MEDS: IBUPROFEN 800 MG TAB PO PRN (16:54)
[2024-08-26 18:44] VITALS: RESP 16
[2024-08-26] MEDS: LACTATED RINGERS 1,000 ML IV SCH (18:45)
[2024-08-26] MEDS: ACETAMINOPHEN TAB 500 MG TAB PO PRN (20:57)
[2024-08-26] MEDS: SENNOSIDES-DOCUSATE SODIUM 1 EACH TAB PO SCH (20:58)
[2024-08-27 06:28] LABS: Basophils # (A) 0.03 10*3/uL (0.00-0.10); Basophils % (A) 0.2 %; Eosinophils # (A) 0.09 10*3/uL (0.04-0.35); Eosinophils % (A) 0.6 %; HCT 35.5 % (37.2-46.3); HGB 11.9 g/dL (12.0-15.0); Lymphocytes # (A) 3.26 10*3/uL (0.90-5.00); Lymphocytes % (A) 22.3 %; MCH 29.7 pg (27.0-32.0); MCHC 33.5 g/dL (32.0-37.0); MCV 88.5 fL (80.0-97.0); Monocytes # (A) 1.30 10*3/uL (0.20-1.00); Monocytes % (A) 8.9 %; Neutrophils # (A) 9.83 10*3/uL (1.80-7.70); Neutrophils % (A) 67.5 %; Platelet Count 365 10*3/uL (140-440); RBC 4.01 10*6/uL (4.10-5.20); RDW 14.3 % (11.5-14.5); WBC 14.59 10*3/uL (4.50-10.00)
--- NOTE | 2024-08-27 12:44 | P.DS ---
Providers Date of admission: 08/26/24 16:16 Expected date of discharge: 08/27/24 [facility] Ms. Eugene is a 28 year old now PPD#1 s/p . The patient is doing well this morning and had no acute events overnight. She has no complaints this morning. She reports minimal lochia, passing flatus, voiding without difficulty, ambulating, and eating/drinking without nausea or vomiting. Infant is in the nursery for IV antibiotics for untreated GBS positive mother. She denies chest pain, shortness of breathing, fevers, or chills overnight. She denies pain or swelling in the legs. restrictions are reviewed with the patient including pelvic rest for 6 weeks. The patient is encouraged to call the office if she experiences any heavy bleeding, foul-smelling discharge, breast complaints, or any if she has any other concerns. She will follow up in the office with in 6 weeks for exam. All questions are answered. Patient Condition at Discharge: Good Plan - Discharge Summary New Discharge Prescriptions: New Ibuprofen [Motrin] 600 mg PO Q6HR PRN #30 tab PRN Reason: Mild Pain (Scale 1 To 3) Acetaminophen Tab [Tylenol] 650 mg PO Q6H PRN #30 tab PRN Reason: Mild Pain (Scale 1 To 3) Docusate [Colace] 100 mg PO BID PRN #60 capsule PRN Reason: Constipation No Action Ibuprofen [Motrin] 600 mg PO Q6HR PRN #30 tab PRN Reason: Pain Discharge Medication List Ibuprofen [Motrin] 600 mg PO Q6HR PRN #30 tab 09/28/18 [Rx] Acetaminophen Tab [Tylenol] 650 mg PO Q6H PRN #30 tab 08/27/24 [Rx] Docusate [Colace] 100 mg PO BID PRN #60 capsule 08/27/24 [Rx] Ibuprofen [Motrin] 600 mg PO Q6HR PRN #30 tab 08/27/24 [Rx] Follow up Appointment(s)/Referral(s): Concepcion Stock MD [STAFF PHYSICIAN] - 6 Weeks Activity/Diet/Wound Care/Special Instructions: Instructions 1. Do not begin any exercise program for 3 weeks. 2. Do not resume sexual relations for 6 weeks or longer if uncomfortable. 3. You may take tub baths or showers at any time. 4. You may use tampons if desired after 6 weeks. 5. Keep any areas repaired with stitches clean and dry. 6. If you are not nursing, wear a good fitting, supportive bra during the day and limit fluid intake for at least 1 week to prevent breast engorgement. 7. Call the office, , within the next week to make appointment for your 6 week checkup if it has not already been made. 8. Report any of the following occurrences to the doctor promptly: a. Heavy, excessive bleeding b. Chills, fever c. Burning or frequency of urination d. Pain or redness and breasts if nursing e. Increasing pain or swelling of vulva (stitches). In addition to the above instructions, the following additional should be followed: 1. No heavy lifting or straining (exercising) until after 6 week checkup. 2. Keep abdominal incision clean and dry: You may wear a dressing if more comfortable. 3. Make office appointment for 2 weeks after delivery date. Discharge Disposition: HOME SELF-CARE
[2024-08-28 09:17] VITALS: BP 117/80; PULSE 64; TEMP 97.7
== END 2024-08-28 11:41 | disposition home or self-care (01) | DRG 560 ==
LOC: 4FBP 16:16
PROVIDERS: ADMIT Obstetrics & Gynecology; ATTEND Obstetrics & Gynecology
PROC: 10E0XZZ Delivery of Products of Conception, External Approach (ICD-10-PCS; principal; 2024-08-26)
PROC: 10907ZC Drainage of Amniotic Fluid, Therapeutic from Products of Conception, Via Natural or Artificial Opening (ICD-10-PCS; 2024-08-26)
DX: O69.81X0 Labor and delivery complicated by cord around neck, without compression, not applicable or unspecified (principal); O99.334 Smoking (tobacco) complicating childbirth; F17.200 Nicotine dependence, unspecified, uncomplicated; O99.824 Streptococcus B carrier state complicating childbirth; Z3A.39 39 weeks gestation of pregnancy; Z37.0 Single live birth
CPT/HCPCS: 85025; 86850; 86900; 86901